=== PATIENT | male | born 1945 | race Caucasian/White ===

== ENCOUNTER 2019-03-30 15:32 | Inpatient (IN) | payer OTHER, MEDICARE ==
[2019-03-30] MEDS ORDERED: LORazepam 2 MG/ML INJ IV STA (15:38)
--- NOTE | 2019-03-30 16:04 | XR ---
EXAMINATION TYPE: XR chest 1V portable DATE OF EXAM: 03/30/2019 COMPARISON: 05/06/2015 HISTORY: Pain TECHNIQUE: Single frontal view of the chest is obtained. FINDINGS: Heart and mediastinum are within normal limits. Lungs are clear of consolidation. There is no pleural effusion. There is no heart failure. Bony thorax appears intact. IMPRESSION: No active cardiopulmonary disease. No change.
--- NOTE | 2019-03-30 16:06 | XR ---
EXAMINATION TYPE: XR pelvis AP view DATE OF EXAM: 03/30/2019 COMPARISON: 02/18/2014 HISTORY: Pain TECHNIQUE: Single view FINDINGS: Pelvic ring is intact. There are clips from prostate surgery. Proximal femurs are intact. S acroiliac joints are intact. There is right hip nailing noted. IMPRESSION: No acute abnormality of the pelvis. No fracture. No change compared to old exam.
[2019-03-30 16:10] LABS: Basophils % (A) 0 %; Creatine Kinase 76 U/L (55-170); Eosinophils # (A) 0.2 k/uL (0-0.7); Eosinophils % (A) 2 %; HCT 38.3 % (39.0-53.0); HGB 13.8 gm/dL (13.0-17.5); Lymphocytes # (A) 2.8 k/uL (1.0-4.8); Lymphocytes % (A) 21 %; MCH 30.9 pg (25.0-35.0); MCHC 35.9 g/dL (31.0-37.0); MCV 86.1 fL (80.0-100.0); Mean Platelet Volume 6.9; Monocytes # (A) 0.5 k/uL (0-1.0); Monocytes % (A) 4 %; Neutrophils # (A) 9.3 k/uL (1.3-7.7); Neutrophils % (A) 71 %; Platelet Count 232 k/uL (150-450); RBC 4.45 m/uL (4.30-5.90); RDW 13.5 % (11.5-15.5); WBC 13.1 k/uL (3.8-10.6)
[2019-03-30 16:11] LABS: ALT 51 U/L (21-72); AST 48 U/L (17-59); African American GFR (CKD) >90 (>60 ml/min/1.73 sqM); Albumin 3.8 g/dL (3.5-5.0); Alcohol <10 mg/dL; Alkaline Phosphatase 60 U/L (38-126); Amylase 51 U/L (30-110); Anion Gap 9 mmol/L; Blood Urea Nitrogen 16 mg/dL (9-20); Calcium 9.4 mg/dL (8.4-10.2); Carbon Dioxide 23 mmol/L (22-30); Chloride 104 mmol/L (98-107); Glucose 138 mg/dL (74-99); Non-African American GFR(CKD) >90 (>60 ml/min/1.73 sqM); Potassium 4.2 mmol/L (3.5-5.1); Sodium 136 mmol/L (137-145); Total Bilirubin 0.3 mg/dL (0.2-1.3)
[2019-03-30 16:19] LABS: Partial Thromboplastin Time 31.8 sec (22.0-30.0); Prothrombin Time 10.8 sec (9.0-12.0)
[2019-03-30 16:22] LABS: Creatine Kinase MB 0.9 ng/mL (0.0-2.4); Troponin I <0.012 ng/mL (0.000-0.034)
[2019-03-30 16:34] LABS: Glucose,Whole Blood 165 mg/dL (75-99)
--- NOTE | 2019-03-30 16:38 | CT ---
EXAMINATION TYPE: CT pelvis wo con DATE OF EXAM: 03/30/2019 COMPARISON: 02/01/2014 HISTORY: Right hip pain after fall. CT DLP: 566.7 mGycm Automated exposure control for dose reduction was used. FINDINGS: There is right hip nailing fixing the proximal right femur. There is facet arthropathy in the lower l umbar spine. The sacroiliac joints are intact. Pelvic ring appears intact. There is some spurring at the pubic sym physis. There is no evidence of a an acute femoral fracture. There is increased density posterior to the proximal right femur that measures 10 x 7 cm consistent w ith hematoma. This extends superiorly on the posterior aspect of the right ilium. Hematoma extends in feriorly to the lesser trochanter of the femur. IMPRESSION: NO ACUTE FRACTURE SEEN. LARGE RIGHT BUTTOCK SOFT TISSUE HEMATOMA ADJACENT TO THE POSTERIOR RIGHT FEMU R.
[2019-03-30] MEDS ORDERED: HYDROmorphone 1 MG/ML 1 ML SYRINGE IVP STA (16:44)
--- NOTE | 2019-03-30 16:45 | ED ---
Fall HPI - General Chief Complaint: Fall Stated Complaint: RT HIP PAIN FROM FALL Time Seen by Provider: 03/30/19 15:32 Source: patient, EMS, RN notes reviewed Mode of arrival: EMS - History of Present Illness Initial Comments: This is a 73-year-old male who states he was on a ladder when he has foot caught in the last step and fell. He does complain of right hip pain. He does have a prior history of right hip pain. He denies any other injury no head neck or back pain no other reported findings. No blurry vision. He was transferred from here by EMS. He was given Zofran as well as 100 g of fentanyl. The pain to get a little bit better. He has no other complaints or modifying factors at this time MD Complaint: fall - Related Data Home Medications Medication Instructions Recorded Confirmed Chlorthalidone 12.5 mg PO DAILY 02/01/14 03/30/19 Dabigatran [Pradaxa] 150 mg PO BID 02/01/14 03/30/19 Lisinopril 40 mg PO BID 02/01/14 03/30/19 Rosuvastatin [Crestor] 10 mg PO HS 02/01/14 03/30/19 glipiZIDE [Glucotrol] 10 mg PO BID 02/01/14 03/30/19 metFORMIN HCL 1,000 mg PO BID 02/01/14 03/30/19 Ascorbic Acid [Vitamin C] 1,000 mg PO DAILY 05/03/15 03/30/19 Aspirin 81 mg PO HS 05/03/15 03/30/19 Cholecalciferol [Vitamin D3] 400 unit PO DAILY 05/03/15 03/30/19 Cinnamon Bark [Cinnamon] 1,000 mg PO AC-BID 05/03/15 03/30/19 Diltiazem HCl [Cardizem LA] 420 mg PO DAILY 05/03/15 03/30/19 Docusate Sodium [Dok] 100 mg PO DAILY 05/03/15 03/30/19 Gabapentin [Neurontin] 300 mg PO TID 05/03/15 03/30/19 Multivitamin [Men's Multi-Vitamin] 1 tab PO DAILY 05/03/15 03/30/19 [place]-3 Fatty Acids/Fish Oil [Fish 1 cap PO DAILY 05/03/15 03/30/19 Oil 1,000 mg Softgel] Potassium 99 mg PO DAILY 05/03/15 03/30/19 Saxagliptin HCl [Onglyza] 5 mg PO DAILY 05/03/15 03/30/19 Cyanocobalamin (Vitamin B-12) 1,000 mcg PO DAILY 03/30/19 03/30/19 [Vitamin B-12] Insulin Glargine,Hum.rec.anlog 52 unit SQ HS 03/30/19 03/30/19 [Lantus Solostar] Magnesium Oxide [Montemayor] 500 mg PO DAILY 03/30/19 03/30/19 Propafenone HCl [Propafenone HCl 325 mg PO BID 03/30/19 03/30/19 ER] Psyllium Husk [Reguloid] 0.4 gm PO BID 03/30/19 03/30/19 Allergies Allergy/AdvReac Type Severity Reaction Status Date / Time bee venom protein (honey bee) Allergy Anaphylaxis Verified 03/30/19 16:44 Review of Systems ROS Statement: Those systems with pertinent positive or pertinent negative responses have been documented in the HPI. ROS Other: All systems not noted in ROS Statement are negative. 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 History of Any Multi-Drug Resistant Organisms: None Reported Past Surgical History: Prostate Surgery, Tonsillectomy Additional Past Surgical History / Comment(s): tumor removal right hip Past Anesthesia/Blood Transfusion Reactions: No Reported Reaction Past Psychological History: No Psychological Hx Reported Smoking Status: Former smoker Past Alcohol Use History: Occasional Past Drug Use History: None Reported - Past Family History Father Family Medical History: Coronary Artery Disease (CAD), Myocardial Infarction ([place]) Additional Family Medical History / Comment(s): in from a heart attack Mother Family Medical History: No Reported History General Exam - General Exam Comments Initial Comments: This is a well-developed well-nourished awake alert oriented 3 male Limitations: no limitations General appearance: alert, anxious, in distress Head exam: Present: atraumatic, normocephalic, normal inspection Eye exam: Present: normal appearance, PERRL, EOMI. Absent: scleral icterus, conjunctival injection, periorbital swelling ENT exam: Present: normal exam, mucous membranes moist Neck exam: Present: normal inspection, full ROM, other (No stridor JVD or bruits). Absent: tenderness, meningismus, lymphadenopathy Respiratory exam: Present: normal lung sounds bilaterally. Absent: respiratory distress, wheezes, rales, rhonchi, stridor Cardiovascular Exam: Present: regular rate, normal rhythm, normal heart sounds. Absent: systolic murmur, diastolic murmur, rubs, gallop, clicks GI/Abdominal exam: Present: soft, normal bowel sounds. Absent: distended, tenderness, guarding, rebound, rigid, bruit, pulsatile mass Rectal exam: Present: deferred Extremities exam: Present: normal inspection, tenderness, normal capillary refill, other (Tenderness over the right hip to palpation no definite shortening or rotation. No open wounds. No other injury to palpation no sensorimotor or vascular deficits). Absent: full ROM, pedal edema, joint swelling, calf tenderness Back exam: Present: normal inspection Neurological exam: Present: alert, oriented X3, CN II-XII intact Psychiatric exam: Present: normal affect, normal mood Skin exam: Present: warm, dry, intact, normal color. Absent: rash Course Vital Signs 03/30/19 15:42 Temperature 98.7 F Pulse Rate 58 L Respiratory 20 Rate Blood Pressure 181/102 O2 Sat by Pulse 98 Oximetry - Reevaluation(s) Reevaluation #1: 03/30/19 17:33 Repeat EKG sinus rhythm a 64. Interval 188 QRS duration 80 QT since QTC 422/[address]-T wave changes no change from the previous Reevaluation #2: 03/30/19 17:52 Evaluation patient multiple occasions reveals minimal improvement in the right hip pain though imaging thus far reveals no evidence of subluxation or fracture. The hardware does appear to be intact. Patient also did start complaining of some retrosternal chest discomfort that he states feels like heartburn. He does have a history of this in the past. Medical Decision Making - Medical Decision Making I did discuss findings with patient family as well as with Dr. High. Patient will be admitted for pain control also for adequate evaluation of the chest pain. I did discuss this with Dr. Newton - Lab Data Result diagrams: 03/30/19 15:40 03/30/19 15:40 Lab Results 03/30/19 03/30/19 03/30/19 Range/Units 15:40 15:40 15:40 WBC 13.1 H (3.8-10.6) k/uL RBC 4.45 (4.30-5.90) m/uL Hgb 13.8 (13.0-17.5) gm/dL Hct 38.3 L (39.0-53.0) % MCV 86.1 (80.0-100.0) fL MCH 30.9 (25.0-35.0) pg MCHC 35.9 (31.0-37.0) g/dL RDW 13.5 (11.5-15.5) % Plt Count 232 (150-450) k/uL Neutrophils % 71 % Lymphocytes % 21 % Monocytes % 4 % Eosinophils % 2 % Basophils % 0 % Neutrophils # 9.3 H (1.3-7.7) k/uL Lymphocytes # 2.8 (1.0-4.8) k/uL Monocytes # 0.5 (0-1.0) k/uL Eosinophils # 0.2 (0-0.7) k/uL Basophils # 0.0 (0-0.2) k/uL PT (9.0-12.0) sec INR (<1.2) APTT (22.0-30.0) sec Sodium 136 L (137-145) mmol/L Potassium 4.2 (3.5-5.1) mmol/L Chloride 104 (98-107) mmol/L Carbon Dioxide 23 (22-30) mmol/L Anion Gap 9 mmol/L BUN 16 (9-20) mg/dL Creatinine 0.63 L (0.66-1.25) mg/dL Est GFR (CKD-EPI)AfAm >90 (>60 ml/min/1.73 sqM) Est GFR (CKD-EPI)NonAf >90 (>60 ml/min/1.73 sqM) Glucose 138 H (74-99) mg/dL POC Glucose (mg/dL) (75-99) mg/dL POC Glu Filter Helper ID Calcium 9.4 (8.4-10.2) mg/dL Total Bilirubin 0.3 (0.2-1.3) mg/dL AST 48 (17-59) U/L ALT 51 (21-72) U/L Alkaline Phosphatase 60 (38-126) U/L Total Creatine Kinase 76 (55-170) U/L CK-MB (CK-2) 0.9 (0.0-2.4) ng/mL CK-MB (CK-2) Rel Index 1.2 Troponin I <0.012 (0.000-0.034) ng/mL Total Protein 6.0 L (6.3-8.2) g/dL Albumin 3.8 (3.5-5.0) g/dL Amylase 51 (30-110) U/L Lipase 206 (23-300) U/L Serum Alcohol <10 mg/dL Blood Type Blood Type Confirm Blood Type Recheck Bld Type Recheck Status Antibody Screen Spec Expiration Date 03/30/19 03/30/19 03/30/19 Range/Units 15:40 15:40 16:15 WBC (3.8-10.6) k/uL RBC (4.30-5.90) m/uL Hgb (13.0-17.5) gm/dL Hct (39.0-53.0) % MCV (80.0-100.0) fL MCH (25.0-35.0) pg MCHC (31.0-37.0) g/dL RDW (11.5-15.5) % Plt Count (150-450) k/uL Neutrophils % % Lymphocytes % % Monocytes % % Eosinophils % % Basophils % % Neutrophils # (1.3-7.7) k/uL Lymphocytes # (1.0-4.8) k/uL Monocytes # (0-1.0) k/uL Eosinophils # (0-0.7) k/uL Basophils # (0-0.2) k/uL PT 10.8 (9.0-12.0) sec INR 1.0 (<1.2) APTT 31.8 H (22.0-30.0) sec Sodium (137-145) mmol/L Potassium (3.5-5.1) mmol/L Chloride (98-107) mmol/L Carbon Dioxide (22-30) mmol/L Anion Gap mmol/L BUN (9-20) mg/dL Creatinine (0.66-1.25) mg/dL Est GFR (CKD-EPI)AfAm (>60 ml/min/1.73 sqM) Est GFR (CKD-EPI)NonAf (>60 ml/min/1.73 sqM) Glucose (74-99) mg/dL POC Glucose (mg/dL) (75-99) mg/dL POC Glu Filter Helper ID Calcium (8.4-10.2) mg/dL Total Bilirubin (0.2-1.3) mg/dL AST (17-59) U/L ALT (21-72) U/L Alkaline Phosphatase (38-126) U/L Total Creatine Kinase (55-170) U/L CK-MB (CK-2) (0.0-2.4) ng/mL CK-MB (CK-2) Rel Index Troponin I (0.000-0.034) ng/mL Total Protein (6.3-8.2) g/dL Albumin (3.5-5.0) g/dL Amylase (30-110) U/L Lipase (23-300) U/L Serum Alcohol mg/dL Blood Type O Negative Blood Type Confirm O Negative Blood Type Recheck No Previous Record Bld Type Recheck Status CABO Indicated Antibody Screen NEGATIVE Spec Expiration Date 04/02/2019231403/30/19 Range/Units 16:30 WBC (3.8-10.6) k/uL RBC (4.30-5.90) m/uL Hgb (13.0-17.5) gm/dL Hct (39.0-53.0) % MCV (80.0-100.0) fL MCH (25.0-35.0) pg MCHC (31.0-37.0) g/dL RDW (11.5-15.5) % Plt Count (150-450) k/uL Neutrophils % % Lymphocytes % % Monocytes % % Eosinophils % % Basophils % % Neutrophils # (1.3-7.7) k/uL Lymphocytes # (1.0-4.8) k/uL Monocytes # (0-1.0) k/uL Eosinophils # (0-0.7) k/uL Basophils # (0-0.2) k/uL PT (9.0-12.0) sec INR (<1.2) APTT (22.0-30.0) sec Sodium (137-145) mmol/L Potassium (3.5-5.1) mmol/L Chloride (98-107) mmol/L Carbon Dioxide (22-30) mmol/L Anion Gap mmol/L BUN (9-20) mg/dL Creatinine (0.66-1.25) mg/dL Est GFR (CKD-EPI)AfAm (>60 ml/min/1.73 sqM) Est GFR (CKD-EPI)NonAf (>60 ml/min/1.73 sqM) Glucose (74-99) mg/dL POC Glucose (mg/dL) 165 H (75-99) mg/dL POC Glu Filter Helper ID Etelvina Del Valle Calcium (8.4-10.2) mg/dL Total Bilirubin (0.2-1.3) mg/dL AST (17-59) U/L ALT (21-72) U/L Alkaline Phosphatase (38-126) U/L Total Creatine Kinase (55-170) U/L CK-MB (CK-2) (0.0-2.4) ng/mL CK-MB (CK-2) Rel Index Troponin I (0.000-0.034) ng/mL Total Protein (6.3-8.2) g/dL Albumin (3.5-5.0) g/dL Amylase (30-110) U/L Lipase (23-300) U/L Serum Alcohol mg/dL Blood Type Blood Type Confirm Blood Type Recheck Bld Type Recheck Status Antibody Screen Spec Expiration Date - EKG Data -: EKG Interpreted by Me EKG Comments: Sinus rhythm of 55. Interval 174. QRS 90 QT since QTC 456/436 to QA changes - Radiology Data Radiology results: report reviewed (I did review the imaging and report there is evidence of a 10 x 7 cm hematoma to the right gluteus. This is consistent for the patient's wallet was when he fell.), image reviewed Critical Care Time Critical Care Time: Yes Critical Care Time: 31 minutes of critical care time which includes initial presentation with history physical labs x-rays multiple reevaluation patient responsive therapy discussion with patient and family as well as the admitting physician and consult. Admission orders and documentation of the above. Disposition Clinical Impression: Fall, Hematoma, Hip pain, right, Chest pain Disposition: ADMITTED IP TO THIS HOSP Condition: Fair Referrals: Albert Kruger DO [Primary Care Provider] - 1-2 days
[2019-03-30] MEDS ORDERED: NITROGLYCERIN SL TABS 0.4 MG TAB SUBLINGUAL PRN (17:55)
[2019-03-30] MEDS ORDERED: HYDROcodone/APAP 5-325MG 1 EACH TAB PO PRN (19:01)
[2019-03-30] MEDS ORDERED: HYDROmorphone 1 MG/ML 1 ML SYRINGE IVP PRN (19:06)
[2019-03-30] MEDS: SODIUM CHLORIDE 0.9% 1,000 ML IV SCH (19:16)
[2019-03-30] MEDS ORDERED: metFORMIN 500 MG TAB PO SCH (21:00)
[2019-03-30] MEDS ORDERED: INSULIN DETEMIR (LEVEMIR) 100 UNIT/ML SYR SQ SCH (21:00)
[2019-03-30] MEDS: ATORVASTATIN 20 MG TAB PO SCH (21:38)
[2019-03-30] MEDS: GABAPENTIN 300 MG CAP PO SCH (21:38)
[2019-03-30] MEDS: LISINOPRIL 20 MG TAB PO SCH (21:38)
[2019-03-30 21:40] LABS: Glucose,Whole Blood 236 mg/dL (75-99)
[2019-03-30] MEDS: PSYLLIUM HUSK 100% 6 GM PACKET PO SCH (21:45)
[2019-03-30] MEDS ORDERED: PROPAFENONE 225 MG TAB PO SCH (22:00)
[2019-03-30 23:24] LABS: Amphetamine Screen,Urine Not Detected (NotDetected); Barbiturate Screen,Urine Not Detected (NotDetected); Benzodiazepines Screen,Urine Detected (NotDetected); Cocaine Screen,Urine Not Detected (NotDetected); Methadone Screen, Urine Not Detected (NotDetected); Opiate Screen,Urine Detected (NotDetected); Oxycodone Screen, Urine Not Detected (NotDetected); Phencyclidine Screen,Urine Not Detected (NotDetected); Tricyclic Antidepressant,Urine Not Detected (NotDetected); Urn Cannabinoid Scrn Not Detected (NotDetected)
--- NOTE | 2019-03-31 00:15 | P.HPIM ---
History of Present Illness H&P Date: 03/30/19 The patient is a 73 yo M with a PMH of Afib (on Pradaxa), GERD, HTN, HLD, and Type 2 DM presented to the ED after a fall at home. The patient noted that he was working on putting up Halloween decorations up on his roof when his foot got stuck on the last step of his ladder on his way down, and he fell on his buttocks. He denied any head trauma or losing consciousness. The patient subsequently was brought to the ED via EMS. As per the ED documentation, the patient had reported some chest discomfort. The patient states that he has chronic intermittent GERD, which he also had prior to coming into the ED. He notes that his chest discomfort has resolved entirely and he felt that it was very typical of his GERD in the duration, intensity, quality, and location of the pain. He further denied SOB, nausea, vomiting, diaphoresis, or dizziness. He underwent an extensive evaluation in the ED with a pelvic CT showing a large right buttock soft tissue hematoma. EKG revealed a normal sinus rhythm at 64 bpm. Chest x-ray was unremarkable with laboratory evaluation showing a WBC count of 13.1, hemoglobin of 13.8, platelets 232, sodium 136, potassium 4.2, BUN 16, and creatinine 0.63. The patient was admitted under the surgical service with medicine on consult for chest discomfort and medical management. Review of Systems Pertinent positives and negatives as discussed in HPI, a complete review of systems was performed and all other systems are negative. 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 History of Any Multi-Drug Resistant Organisms: None Reported Past Surgical History: Prostate Surgery, Tonsillectomy Additional Past Surgical History / Comment(s): tumor removal right hip Past Anesthesia/Blood Transfusion Reactions: No Reported Reaction Past Psychological History: No Psychological Hx Reported Smoking Status: Former smoker Past Alcohol Use History: Occasional Past Drug Use History: None Reported - Past Family History Father Family Medical History: Coronary Artery Disease (CAD), Myocardial Infarction ([place]) Additional Family Medical History / Comment(s): in from a heart attack Mother Family Medical History: No Reported History Medications and Allergies Home Medications Medication Instructions Recorded Confirmed Type Chlorthalidone 12.5 mg PO DAILY 02/01/14 03/30/19 History Dabigatran [Pradaxa] 150 mg PO BID 02/01/14 03/30/19 History Lisinopril 40 mg PO BID 02/01/14 03/30/19 History Rosuvastatin [Crestor] 10 mg PO HS 02/01/14 03/30/19 History glipiZIDE [Glucotrol] 10 mg PO BID 02/01/14 03/30/19 History metFORMIN HCL 1,000 mg PO BID 02/01/14 03/30/19 History Ascorbic Acid [Vitamin C] 1,000 mg PO DAILY 05/03/15 03/30/19 History Aspirin 81 mg PO HS 05/03/15 03/30/19 History Cholecalciferol [Vitamin D3] 400 unit PO DAILY 05/03/15 03/30/19 History Cinnamon Bark [Cinnamon] 1,000 mg PO AC-BID 05/03/15 03/30/19 History Diltiazem HCl [Cardizem LA] 420 mg PO DAILY 05/03/15 03/30/19 History Docusate Sodium [Dok] 100 mg PO DAILY 05/03/15 03/30/19 History Gabapentin [Neurontin] 300 mg PO TID 05/03/15 03/30/19 History Multivitamin [Men's Multi-Vitamin] 1 tab PO DAILY 05/03/15 03/30/19 History [place]-3 Fatty Acids/Fish Oil [Fish 1 cap PO DAILY 05/03/15 03/30/19 History Oil 1,000 mg Softgel] Potassium 99 mg PO DAILY 05/03/15 03/30/19 History Saxagliptin HCl [Onglyza] 5 mg PO DAILY 05/03/15 03/30/19 History Cyanocobalamin (Vitamin B-12) 1,000 mcg PO DAILY 03/30/19 03/30/19 History [Vitamin B-12] Insulin Glargine,Hum.rec.anlog 52 unit SQ HS 03/30/19 03/30/19 History [Lantus Solostar] Magnesium Oxide [Montemayor] 500 mg PO DAILY 03/30/19 03/30/19 History Psyllium Husk [Reguloid] 0.4 gm PO BID 03/30/19 03/30/19 History Sotalol [Betapace] 120 mg PO BID 03/30/19 03/30/19 History Allergies Allergy/AdvReac Type Severity Reaction Status Date / Time bee venom protein (honey bee) Allergy Anaphylaxis Verified 03/30/19 16:44 Physical Exam Vitals: Vital Signs Temp Pulse Resp BP Pulse Ox 03/30/19 20:00 98.1 F 78 14 162/92 96 03/30/19 15:42 98.7 F 58 L 20 181/102 98 Intake and Output 03/30/19 03/30/19 03/31/19 14:59 22:59 06:59 Other: Weight 81.647 kg General: non toxic, in distress due to pain, appears at stated age, normal weight Derm: no unusual rashes/lesions no unusual ecchymoses, warm, dry Head: atraumatic, normocephalic, symmetric Eyes: EOMI, no lid lag, anicteric sclera, pupils equal round reactive to light ENT: Nose and ears atraumatic, no thrush, no pharyngeal erythema Neck: No thyromegaly, no cervical lymphadenopathy, trachea midline, supple Mouth: no lip lesion, mucus membranes moist Cardiovascular: S1S2 reg, no murmur, positive posterior tibial pulse bilateral, no edema, capillary refill less than 2 seconds Lungs: CTA bilateral, no rhonchi, no rales , no accessory muscle use Abdominal: soft, nontender to palpation, no guarding, no appreciable organomegaly, normal bowel sounds Ext: R lateral lower hip and upper thigh tenderness, no gross muscle atrophy, strength 5/5 throughout except RLE due to pain Neuro: CN II-XI grossly intact, light touch intact all 4 extremities, finger to nose within normal limits, Psych: Alert, oriented, appropriate affect Results CBC & Chem 7: 03/30/19 15:40 03/30/19 15:40 Labs: Abnormal Lab Results - Last 24 Hours (Table) 03/30/19 03/30/19 03/30/19 Range/Units 15:40 15:40 15:40 WBC 13.1 H (3.8-10.6) k/uL Hct 38.3 L (39.0-53.0) % Neutrophils # 9.3 H (1.3-7.7) k/uL APTT 31.8 H (22.0-30.0) sec Sodium 136 L (137-145) mmol/L Creatinine 0.63 L (0.66-1.25) mg/dL Glucose 138 H (74-99) mg/dL POC Glucose (mg/dL) (75-99) mg/dL Total Protein 6.0 L (6.3-8.2) g/dL 03/30/19 03/30/19 Range/Units 16:30 21:39 WBC (3.8-10.6) k/uL Hct (39.0-53.0) % Neutrophils # (1.3-7.7) k/uL APTT (22.0-30.0) sec Sodium (137-145) mmol/L Creatinine (0.66-1.25) mg/dL Glucose (74-99) mg/dL POC Glucose (mg/dL) 165 H 236 H (75-99) mg/dL Total Protein (6.3-8.2) g/dL Assessment and Plan Plan: Chest discomfort, resolved, likely secondary to GERD -Troponin and EKG unremarkable -Cardiac monitoring R hip hematoma secondary to mechanical fall -As per surgery service Type 2 DM -Will c/w Lantus home dose (takes 52 U qhs) -Hold oral hypoglycemics -JIMMY with FS Afib -Hold Pradaxa in setting of acute hematoma -Hold aspirin -C/w Cardizem HTN -C/w home meds: Lisinopril HLD -C/w lipitor DVT prophylaxis -IPCDs
[2019-03-31] MEDS: KETOROLAC 30 MG/ML 1 ML VIAL IVP SCH ×6 (01:28→23:50)
[2019-03-31 04:22] LABS: Cholesterol 91 mg/dL (<200); HDL Cholesterol 36 mg/dL (40-60); LDL Cholesterol,Calculated 45 mg/dL (0-99); Triglycerides 51 mg/dL (<150)
[2019-03-31 05:16] LABS: Appearance,Urine Clear (Clear); Bilirubin,Urine Negative (Negative); Blood,Urine Negative (Negative); Color,Urine Yellow; Glucose,Urine (UA) 3+ (Negative); Leukocyte Esterase,Urine Negative (Negative); Nitrite,Urine Negative (Negative); Protein,Urine Trace (Negative); Specific Gravity,Urine 1.028 (1.001-1.035); Urobilinogen,Urine <2.0 mg/dL (<2.0)
[2019-03-31] MEDS: SODIUM CHLORIDE 0.9% 1,000 ML IV SCH ×2 (06:00→14:09)
[2019-03-31 06:26] LABS: Ketones,Urine 4+ (Negative)
[2019-03-31] MEDS ORDERED: glipiZIDE 10 MG TAB PO SCH (07:30)
[2019-03-31 07:58] VITALS: BMI 29.2
[2019-03-31 08:16] LABS: Glucose,Whole Blood 155 mg/dL (75-99)
[2019-03-31] MEDS: DILTIAZEM CD 180 MG CAP.ER.24H PO SCH (08:16)
[2019-03-31] MEDS: ASCORBIC ACID 500 MG TAB PO SCH (08:16)
[2019-03-31] MEDS: CHLORTHALIDONE 25 MG TAB PO SCH (08:17)
[2019-03-31] MEDS: CHOLECALCIFEROL 400 UNIT TAB PO SCH (08:17)
[2019-03-31] MEDS: DILTIAZEM CD 240 MG CAP.ER.24H PO SCH (08:18)
[2019-03-31] MEDS: PSYLLIUM HUSK 100% 6 GM PACKET PO SCH ×2 (08:32→19:50)
[2019-03-31] MEDS: LISINOPRIL 20 MG TAB PO SCH ×2 (08:32→19:51)
[2019-03-31] MEDS: GABAPENTIN 300 MG CAP PO SCH ×3 (08:33→19:51)
[2019-03-31] MEDS: POTASSIUM CHLORIDE ER 10 MEQ TAB.ER.PRT PO SCH (08:33)
[2019-03-31] MEDS: MULTIVITAMINS, THERA 1 EACH TAB PO SCH (08:33)
[2019-03-31] MEDS: INSULIN ASPART (NovoLOG) 100 UNIT/ML VIAL SQ SCH ×4 (08:33→19:50)
[2019-03-31] MEDS: MAGNESIUM OXIDE 400 MG TAB PO SCH (08:33)
[2019-03-31] MEDS: DOCUSATE 100 MG CAP PO SCH (08:33)
[2019-03-31] MEDS: CYANOCOBALAMIN 500 MCG TAB PO SCH (08:33)
[2019-03-31 08:45] LABS: MCH 31.7 pg (25.0-35.0); MCHC 36.1 g/dL (31.0-37.0); MCV 87.7 fL (80.0-100.0); Mean Platelet Volume 7.1; Platelet Count 185 k/uL (150-450); RDW 13.6 % (11.5-15.5); WBC 11.7 k/uL (3.8-10.6)
[2019-03-31 08:49] LABS: HGB 10.5 gm/dL (13.0-17.5)
[2019-03-31 08:50] LABS: Prothrombin Time 10.3 sec (9.0-12.0)
[2019-03-31] MEDS ORDERED: LINAGLIPTIN 5 MG TABLET PO SCH (09:00)
[2019-03-31] MEDS ORDERED: NON FORMULARY DRUG (Omega-3 Fatty Acids/Fish Oil [Fish Oil 1,000 Mg Softgel] 1 CAP) PO SCH (09:00)
[2019-03-31] MEDS ORDERED: ASPIRIN 325 MG TAB PO SCH (09:00)
--- NOTE | 2019-03-31 11:18 | P.GSHP ---
History of Present Illness H&P Date: 03/31/19 73-year-old male presents to the emergency department as a priority to trauma after a fall at home. He was brought in by EMS. The patient was climbing a ladder to retrieve Halloween decorations and slipped on the last wrong of his ladder on his way down. He states he fell on his right hip. His wallet was within his pants. He denied hitting his head. He denies any loss of consciousness. On workup, he did not appear to have any acute fractures, however did have a large hematoma of the right hip/buttock. He is noted to take anticoagulation for atrial fibrillation. The emergency doctor also was concerned of possible chest discomfort. EKG was found to be normal sinus rhythm. Currently, he is experiencing difficulty in ambulating due to the large hematoma. 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 - Review of Systems All systems: negative 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, prostate ca with surgery, cataract removed right eye slight one in left eye, arthritis, sleep apnea with cpap History of Any Multi-Drug Resistant Organisms: None Reported Past Surgical History: Prostate Surgery, Tonsillectomy Additional Past Surgical History / Comment(s): tumor removal right hip, back surgery Past Anesthesia/Blood Transfusion Reactions: No Reported Reaction Past Psychological History: No Psychological Hx Reported Smoking Status: Former smoker Past Alcohol Use History: Occasional Past Drug Use History: None Reported - Past Family History Father Family Medical History: Coronary Artery Disease (CAD), Myocardial Infarction (MD) Additional Family Medical History / Comment(s): in from a heart attack, valve replacement Mother Family Medical History: No Reported History Medications and Allergies Home Medications Medication Instructions Recorded Confirmed Type Chlorthalidone 12.5 mg PO DAILY 02/01/14 03/30/19 History Dabigatran [Pradaxa] 150 mg PO BID 02/01/14 03/30/19 History Lisinopril 40 mg PO BID 02/01/14 03/30/19 History Rosuvastatin [Crestor] 10 mg PO HS 02/01/14 03/30/19 History glipiZIDE [Glucotrol] 10 mg PO BID 02/01/14 03/30/19 History metFORMIN HCL 1,000 mg PO BID 02/01/14 03/30/19 History Ascorbic Acid [Vitamin C] 1,000 mg PO DAILY 05/03/15 03/30/19 History Aspirin 81 mg PO HS 05/03/15 03/30/19 History Cholecalciferol [Vitamin D3] 400 unit PO DAILY 05/03/15 03/30/19 History Cinnamon Bark [Cinnamon] 1,000 mg PO AC-BID 05/03/15 03/30/19 History Diltiazem HCl [Cardizem LA] 420 mg PO DAILY 05/03/15 03/30/19 History Docusate Sodium [Dok] 100 mg PO DAILY 05/03/15 03/30/19 History Gabapentin [Neurontin] 300 mg PO TID 05/03/15 03/30/19 History Multivitamin [Men's Multi-Vitamin] 1 tab PO DAILY 05/03/15 03/30/19 History [place]-3 Fatty Acids/Fish Oil [Fish 1 cap PO DAILY 05/03/15 03/30/19 History Oil 1,000 mg Softgel] Potassium 99 mg PO DAILY 05/03/15 03/30/19 History Saxagliptin HCl [Onglyza] 5 mg PO DAILY 05/03/15 03/30/19 History Cyanocobalamin (Vitamin B-12) 1,000 mcg PO DAILY 03/30/19 03/30/19 History [Vitamin B-12] Insulin Glargine,Hum.rec.anlog 52 unit SQ HS 03/30/19 03/30/19 History [Lantus Solostar] Magnesium Oxide [Montemayor] 500 mg PO DAILY 03/30/19 03/30/19 History Psyllium Husk [Reguloid] 0.4 gm PO BID 03/30/19 03/30/19 History Sotalol [Betapace] 120 mg PO BID 03/30/19 03/30/19 History Allergies Allergy/AdvReac Type Severity Reaction Status Date / Time bee venom protein (honey bee) Allergy Anaphylaxis Verified 03/30/19 16:44 Surgical - Exam Osteopathic Statement: *. No significant issues noted on an osteopathic structural exam other than those noted in the History and Physical/Consult. Vital Signs Temp Pulse Resp BP Pulse Ox 98.7 F 58 L 20 181/102 98 03/30/19 15:42 03/30/19 15:42 03/30/19 15:42 03/30/19 15:42 03/30/19 15:42 - General well nourished, no distress - Eyes PERRL - Neck trachea midline - Respiratory normal respiratory effort - Abdomen Soft, nontender, nondistended, no rebound, no guarding - Integumentary Large palpable hematoma of the right hip/buttock, a full to touch, mild ecchymosis around this area - Psychiatric oriented to time, oriented to person, oriented to place Results - Labs 03/31/19 08:15 03/30/19 15:40 Abnormal Lab Results - Last 24 Hours (Table) 03/30/19 03/30/19 03/30/19 Range/Units 15:40 15:40 15:40 WBC 13.1 H (3.8-10.6) k/uL RBC (4.30-5.90) m/uL Hgb (13.0-17.5) gm/dL Hct 38.3 L (39.0-53.0) % Neutrophils # 9.3 H (1.3-7.7) k/uL APTT 31.8 H (22.0-30.0) sec Sodium 136 L (137-145) mmol/L Creatinine 0.63 L (0.66-1.25) mg/dL Glucose 138 H (74-99) mg/dL POC Glucose (mg/dL) (75-99) mg/dL Total Protein 6.0 L (6.3-8.2) g/dL HDL Cholesterol (40-60) mg/dL Urine Protein (Negative) Urine Glucose (UA) (Negative) Urine Ketones (Negative) Urine Opiates Screen (NotDetected) U Benzodiazepines Scrn (NotDetected) 03/30/19 03/30/19 03/30/19 Range/Units 16:30 21:39 23:05 WBC (3.8-10.6) k/uL RBC (4.30-5.90) m/uL Hgb (13.0-17.5) gm/dL Hct (39.0-53.0) % Neutrophils # (1.3-7.7) k/uL APTT (22.0-30.0) sec Sodium (137-145) mmol/L Creatinine (0.66-1.25) mg/dL Glucose (74-99) mg/dL POC Glucose (mg/dL) 165 H 236 H (75-99) mg/dL Total Protein (6.3-8.2) g/dL HDL Cholesterol (40-60) mg/dL Urine Protein Trace H (Negative) Urine Glucose (UA) 3+ H (Negative) Urine Ketones 4+ H (Negative) Urine Opiates Screen (NotDetected) U Benzodiazepines Scrn (NotDetected) 03/30/19 03/31/19 03/31/19 Range/Units Unknown 03:33 08:14 WBC (3.8-10.6) k/uL RBC (4.30-5.90) m/uL Hgb (13.0-17.5) gm/dL Hct (39.0-53.0) % Neutrophils # (1.3-7.7) k/uL APTT (22.0-30.0) sec Sodium (137-145) mmol/L Creatinine (0.66-1.25) mg/dL Glucose (74-99) mg/dL POC Glucose (mg/dL) 155 H (75-99) mg/dL Total Protein (6.3-8.2) g/dL HDL Cholesterol 36 L (40-60) mg/dL Urine Protein (Negative) Urine Glucose (UA) (Negative) Urine Ketones (Negative) Urine Opiates Screen Detected H (NotDetected) U Benzodiazepines Scrn Detected H (NotDetected) 03/31/19 Range/Units 08:15 WBC 11.7 H (3.8-10.6) k/uL RBC 3.30 L (4.30-5.90) m/uL Hgb 10.5 L D (13.0-17.5) gm/dL Hct 29.0 L (39.0-53.0) % Neutrophils # (1.3-7.7) k/uL APTT (22.0-30.0) sec Sodium (137-145) mmol/L Creatinine (0.66-1.25) mg/dL Glucose (74-99) mg/dL POC Glucose (mg/dL) (75-99) mg/dL Total Protein (6.3-8.2) g/dL HDL Cholesterol (40-60) mg/dL Urine Protein (Negative) Urine Glucose (UA) (Negative) Urine Ketones (Negative) Urine Opiates Screen (NotDetected) U Benzodiazepines Scrn (NotDetected) Diabetes panel 03/30/19 03/31/19 Range/Units 15:40 03:33 Sodium 136 L (137-145) mmol/L Potassium 4.2 (3.5-5.1) mmol/L Chloride 104 (98-107) mmol/L Carbon Dioxide 23 (22-30) mmol/L BUN 16 (9-20) mg/dL Creatinine 0.63 L (0.66-1.25) mg/dL Glucose 138 H (74-99) mg/dL Calcium 9.4 (8.4-10.2) mg/dL AST 48 (17-59) U/L ALT 51 (21-72) U/L Alkaline Phosphatase 60 (38-126) U/L Total Protein 6.0 L (6.3-8.2) g/dL Albumin 3.8 (3.5-5.0) g/dL Triglycerides 51 (<150) mg/dL HDL Cholesterol 36 L (40-60) mg/dL Calcium panel 03/30/19 Range/Units 15:40 Calcium 9.4 (8.4-10.2) mg/dL Albumin 3.8 (3.5-5.0) g/dL Pituitary panel 03/30/19 Range/Units 15:40 Sodium 136 L (137-145) mmol/L Potassium 4.2 (3.5-5.1) mmol/L Chloride 104 (98-107) mmol/L Carbon Dioxide 23 (22-30) mmol/L BUN 16 (9-20) mg/dL Creatinine 0.63 L (0.66-1.25) mg/dL Glucose 138 H (74-99) mg/dL Calcium 9.4 (8.4-10.2) mg/dL Adrenal panel 03/30/19 Range/Units 15:40 Sodium 136 L (137-145) mmol/L Potassium 4.2 (3.5-5.1) mmol/L Chloride 104 (98-107) mmol/L Carbon Dioxide 23 (22-30) mmol/L BUN 16 (9-20) mg/dL Creatinine 0.63 L (0.66-1.25) mg/dL Glucose 138 H (74-99) mg/dL Calcium 9.4 (8.4-10.2) mg/dL Total Bilirubin 0.3 (0.2-1.3) mg/dL AST 48 (17-59) U/L ALT 51 (21-72) U/L Alkaline Phosphatase 60 (38-126) U/L Total Protein 6.0 L (6.3-8.2) g/dL Albumin 3.8 (3.5-5.0) g/dL Assessment and Plan (1) Hematoma Narrative/Plan: 73-year-old male status post fall - Extensive right lower extremity hematoma, hemoglobin will be followed - Due to limited ambulation, will have physical therapy evaluation along with orthopedic evaluation - Medical management appreciated - Hold anticoagulation due to hematoma Current Visit: Yes Status: Acute Code(s): T14.8XXA - OTHER INJURY OF UNSPECIFIED BODY REGION, INITIAL ENCOUNTER SNOMED Code(s): 887242046
[2019-03-31 11:29] LABS: Glucose,Whole Blood 216 mg/dL (75-99)
[2019-03-31 12:06] VITALS: RESP 18
--- NOTE | 2019-03-31 16:03 | P.PN ---
Subjective Progress Note Date: 03/31/19 Principal diagnosis: gluteal pain Patient is a 73-year-old male past medical history of atrial fibrillation on anticoagulation with prior DEXA, GERD, hypertension, dyslip idemia, and diabetes mellitus type 2 who presented to the ER via EMS after a fall at home. Patient was getting following decorations out of his attic when he missed the last brought on his ladder and fell down on his buttocks. He did not have a syncopal episode. In the emergency department he underwent an extensive evaluation. On arrival he was hypertensive with a blood pressure of 181/102. Initial laboratory analysis showed a white blood cell count of 13.1, hemoglobin 13.8, and blood sugar of 138. Chest x-ray showed no acute process. Pelvic x-ray showed no acute abnormality. CT of the pelvis demonstrated a large right buttock soft tissue hematoma adjacent to the posterior right femur that measured 10 x 7 cm. His progress was held and he was initially admitted for further monitoring. He had also complained of some chest discomfort on initial arrival which she then said was consistent with his GERD. Initial EKG was nonischemic. Troponins remained negative. The morning after admission he had a 3 g drop in hemoglobin. He was having improvement in his pain in the right lowe r extremity but was still unable to lift the leg. Patient seen and examined at bedside. 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 He has chronic venous stasis changes. He does report significant pain in his right but not and right thigh area. He reports some changes in sensation over the right hip. He does still have intact light touch. He denies any chest pain or shortness of breath. He does not remember complaining of chest pain yesterday. He also does not remember seeing my partner yesterday, who his verifies evaluated him. Discussed risks versus benefits of [place] accepted. They are aware that he is at increased risk of A. fib or further blood clot will Pernox is on hold. They're in agreement with continuing to hold this secondary to known hematoma, drop in hemoglobin, and possibility of ongoing bleeding. Objective - Vital Signs Vital signs: Vital Signs Temp 97.9 F 03/31/19 12:00 Pulse 62 03/31/19 12:00 Resp 18 03/31/19 12:00 BP 128/71 03/31/19 12:00 Pulse Ox 97 03/31/19 12:00 Intake & Output 03/30/19 03/31/19 03/31/19 18:59 06:59 18:59 Intake Total 1100 Balance 1100 Weight 81.647 kg Intake: Amount of Fluid Infused ( 1100 ml) Other: Voiding Method Urinal - Exam General: non toxic, mild distress secondary to pain, appears at stated age Derm: warm, dry Head: atraumatic, normocephalic, symmetric Eyes: EOMI, no lid lag, anicteric sclera Mouth: no lip lesion, mucus membranes moist Cardiovascular: S1S2 reg, no murmur, palpable posterior tibial pulse on the left, dopplerable posterior tibial pulse on the right, dopplerable dorsalis pedis pulse on the right, Lungs: CTA bilateral, no rhonchi, no rales , no accessory muscle use Abdominal: soft, nontender to palpation, no guarding, no appreciable organomega ly Ext: no gross muscle atrophy, area over right gluteal feels firm, light touch intact, no contractures Neuro: CN II-XI grossly intact, no focal neuro deficits Psych: Alert, oriented, appropriate affect - Labs CBC & Chem 7: 03/31/19 08:15 03/30/19 15:40 Labs: Abnormal Lab Results - Last 24 Hours (Table) 03/30/19 03/30/19 03/30/19 Range/Units 15:40 15:40 15:40 WBC 13.1 H (3.8-10.6) k/uL RBC (4.30-5.90) m/uL Hgb (13.0-17.5) gm/dL Hct 38.3 L (39.0-53.0) % Neutrophils # 9.3 H (1.3-7.7) k/uL APTT 31.8 H (22.0-30.0) sec Sodium 136 L (137-145) mmol/L Creatinine 0.63 L (0.66-1.25) mg/dL Glucose 138 H (74-99) mg/dL POC Glucose (mg/dL) (75-99) mg/dL Total Protein 6.0 L (6.3-8.2) g/dL HDL Cholesterol (40-60) mg/dL Urine Protein (Negative) Urine Glucose (UA) (Negative) Urine Ketones (Negative) Urine Opiates Screen (NotDetected) U Benzodiazepines Scrn (NotDetected) 03/30/19 03/30/19 03/30/19 Range/Units 16:30 21:39 23:05 WBC (3.8-10.6) k/uL RBC (4.30-5.90) m/uL Hgb (13.0-17.5) gm/dL Hct (39.0-53.0) % Neutrophils # (1.3-7.7) k/uL APTT (22.0-30.0) sec Sodium (137-145) mmol/L Creatinine (0.66-1.25) mg/dL Glucose (74-99) mg/dL POC Glucose (mg/dL) 165 H 236 H (75-99) mg/dL Total Protein (6.3-8.2) g/dL HDL Cholesterol (40-60) mg/dL Urine Protein Trace H (Negative) Urine Glucose (UA) 3+ H (Negative) Urine Ketones 4+ H (Negative) Urine Opiates Screen (NotDetected) U Benzodiazepines Scrn (NotDetected) 03/30/19 03/31/19 03/31/19 Range/Units Unknown 03:33 08:14 WBC (3.8-10.6) k/uL RBC (4.30-5.90) m/uL Hgb (13.0-17.5) gm/dL Hct (39.0-53.0) % Neutrophils # (1.3-7.7) k/uL APTT (22.0-30.0) sec Sodium (137-145) mmol/L Creatinine (0.66-1.25) mg/dL Glucose (74-99) mg/dL POC Glucose (mg/dL) 155 H (75-99) mg/dL Total Protein (6.3-8.2) g/dL HDL Cholesterol 36 L (40-60) mg/dL Urine Protein (Negative) Urine Glucose (UA) (Negative) Urine Ketones (Negative) Urine Opiates Screen Detected H (NotDetected) U Benzodiazepines Scrn Detected H (NotDetected) 03/31/19 03/31/19 Range/Units 08:15 11:27 WBC 11.7 H (3.8-10.6) k/uL RBC 3.30 L (4.30-5.90) m/uL Hgb 10.5 L D (13.0-17.5) gm/dL Hct 29.0 L (39.0-53.0) % Neutrophils # (1.3-7.7) k/uL APTT (22.0-30.0) sec Sodium (137-145) mmol/L Creatinine (0.66-1.25) mg/dL Glucose (74-99) mg/dL POC Glucose (mg/dL) 216 H (75-99) mg/dL Total Protein (6.3-8.2) g/dL HDL Cholesterol (40-60) mg/dL Urine Protein (Negative) Urine Glucose (UA) (Negative) Urine Ketones (Negative) Urine Opiates Screen (NotDetected) U Benzodiazepines Scrn (NotDetected) Assessment and Plan Assessment: Right gluteal hematoma secondary to fall -Continue to hold Pradaxa, ASA -Case discussed orthopedic surgery - Pain control - PT/OT evaluation - monitor pulses q4h Acute blood loss anemia - follow CBC DM2 with hyperglycemia - increase levemir - SSI to ACHS - metformin and glucotrol on hold - follow BS Gastritis - causing chest discomfort - H2 vannessa A fib - continue cardizem and sotalol - hold pradaxa HTN - controlled - continue current medications HLD - Continue tatin DVT prophylaxis: ambulation Discussed with: patient, , nursing, Dr. Zamarripa Anticipated discharge: 1-[address]: home vs SNF A total of 35 minutes was spent on the care of this complex patient more than 50% of the time was spent in counseling and care coordination.
[2019-03-31 16:32] LABS: Glucose,Whole Blood 266 mg/dL (75-99)
[2019-03-31 19:39] LABS: Glucose,Whole Blood 300 mg/dL (75-99)
[2019-03-31 19:49] LABS: HCT 27.9 % (39.0-53.0); HGB 9.5 gm/dL (13.0-17.5); MCH 30.4 pg (25.0-35.0); MCHC 34.2 g/dL (31.0-37.0); MCV 88.9 fL (80.0-100.0); Mean Platelet Volume 8.2; Platelet Count 163 k/uL (150-450); RBC 3.14 m/uL (4.30-5.90); RDW 13.9 % (11.5-15.5); WBC 10.6 k/uL (3.8-10.6)
[2019-03-31] MEDS: FAMOTIDINE 20 MG TAB PO SCH (19:51)
[2019-03-31] MEDS: ATORVASTATIN 20 MG TAB PO SCH (19:51)
[2019-03-31] MEDS: SOTALOL 120 MG TAB PO SCH (19:51)
[2019-03-31] MEDS ORDERED: INSULIN DETEMIR (LEVEMIR) 100 UNIT/ML SYR SQ SCH (21:00)
[2019-04-01] MEDS: KETOROLAC 30 MG/ML 1 ML VIAL IVP SCH ×4 (06:02→23:41)
[2019-04-01 06:33] LABS: Glucose,Whole Blood 90 mg/dL (75-99)
[2019-04-01 07:12] LABS: HCT 27.6 % (39.0-53.0); HGB 9.5 gm/dL (13.0-17.5); MCH 30.7 pg (25.0-35.0); MCHC 34.3 g/dL (31.0-37.0); MCV 89.4 fL (80.0-100.0); Mean Platelet Volume 6.8; Platelet Count 168 k/uL (150-450); RBC 3.08 m/uL (4.30-5.90); RDW 13.7 % (11.5-15.5); WBC 10.7 k/uL (3.8-10.6)
[2019-04-01] MEDS: INSULIN ASPART (NovoLOG) 100 UNIT/ML VIAL SQ SCH ×4 (07:30→21:23)
--- NOTE | 2019-04-01 07:54 | P.CNOR ---
History of Present Illness - [facility] Consult date: 04/01/19 Requesting physician: Jodi Boone Consult reason: other (Right hip pain/hematoma) History of present illness: Mr. Fay is a pleasant 73-year-old male who was admitted to the emergency department after a fall on 03/31/2019. He was coming down off a ladder putting up Halloween decorations and fell, landing on his right hip (with his billfold in his back pocket). He states he didn't go very far but came down somewhat hard. He was evaluated in the emergency department. CT scan started a large hematoma around the right hip. The patient was on Pradaxa and aspirin, both of which have been held. He states the pain is overall well controlled. He has has been having difficulty ambulating but states he's better once he gets moving. He has had some issues with balance in the past and has had previous lumbar spine surgery. He denies any present numbness, tingling or weakness. 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 The hip has not given him any issues since. 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, prostate ca with surgery, cataract removed right eye slight one in left eye, arthritis, sleep apnea with cpap History of Any Multi-Drug Resistant Organisms: None Reported Past Surgical History: Prostate Surgery, Tonsillectomy Additional Past Surgical History / Comment(s): tumor removal right hip, back surgery Past Anesthesia/Blood Transfusion Reactions: No Reported Reaction Past Psychological History: No Psychological Hx Reported Smoking Status: Former smoker Past Alcohol Use History: Occasional Past Drug Use History: None Reported - Past Family History Father Family Medical History: Coronary Artery Disease (CAD), Myocardial Infarction (PA) Additional Family Medical History / Comment(s): in from a heart attack, valve replacement Mother Family Medical History: No Reported History Medications and Allergies Home Medications Medication Instructions Recorded Confirmed Type Chlorthalidone 12.5 mg PO DAILY 02/01/14 03/30/19 History Dabigatran [Pradaxa] 150 mg PO BID 02/01/14 03/30/19 History Lisinopril 40 mg PO BID 02/01/14 03/30/19 History Rosuvastatin [Crestor] 10 mg PO HS 02/01/14 03/30/19 History glipiZIDE [Glucotrol] 10 mg PO BID 02/01/14 03/30/19 History metFORMIN HCL 1,000 mg PO BID 02/01/14 03/30/19 History Ascorbic Acid [Vitamin C] 1,000 mg PO DAILY 05/03/15 03/30/19 History Aspirin 81 mg PO HS 05/03/15 03/30/19 History Cholecalciferol [Vitamin D3] 400 unit PO DAILY 05/03/15 03/30/19 History Cinnamon Bark [Cinnamon] 1,000 mg PO AC-BID 05/03/15 03/30/19 History Diltiazem HCl [Cardizem LA] 420 mg PO DAILY 05/03/15 03/30/19 History Docusate Sodium [Dok] 100 mg PO DAILY 05/03/15 03/30/19 History Gabapentin [Neurontin] 300 mg PO TID 05/03/15 03/30/19 History Multivitamin [Men's Multi-Vitamin] 1 tab PO DAILY 05/03/15 03/30/19 History [place]-3 Fatty Acids/Fish Oil [Fish 1 cap PO DAILY 05/03/15 03/30/19 History Oil 1,000 mg Softgel] Potassium 99 mg PO DAILY 05/03/15 03/30/19 History Saxagliptin HCl [Onglyza] 5 mg PO DAILY 05/03/15 03/30/19 History Cyanocobalamin (Vitamin B-12) 1,000 mcg PO DAILY 03/30/19 03/30/19 History [Vitamin B-12] Insulin Glargine,Hum.rec.anlog 52 unit SQ HS 03/30/19 03/30/19 History [Lantus Solostar] Magnesium Oxide [Montemayor] 500 mg PO DAILY 03/30/19 03/30/19 History Psyllium Husk [Reguloid] 0.4 gm PO BID 03/30/19 03/30/19 History Sotalol [Betapace] 120 mg PO BID 03/30/19 03/30/19 History Allergies Allergy/AdvReac Type Severity Reaction Status Date / Time bee venom protein (honey bee) Allergy Anaphylaxis Verified 03/30/19 16:44 Physical Examination There is a 5 cm x 6 cm area of ecchymosis on the posterolateral aspect of the right hip, posterior and proximal to the greater trochanter. The surrounding musculature and soft tissues are enlarged and moderately firm. He does not have a lot of adipose tissue around the hips but this is asymmetric to the other side. Mild/appropriate tenderness to palpation. It is not fluctuant. No pain with logroll or heel pound. He is able to actively range the hip without difficulty. Palpable dorsalis pedis and tibialis posterior pulses are 3+ and 2 +, respectively. Symmetric strength with resisted dorsiflexion and plantarflexion. Subjectively normal sensation circumferentially around the leg and foot. Results CT scan of the pelvis was reviewed and interpreted from an orthopedic standpoint. This demonstrates a large sub-gluteal hematoma, extending from the iliac wing to the lesser trochanter measuring approximately 8 cm x 11 cm at its widest dimensions. A sliding hip screw is in place in the right hip is no ev idence of dontae-implant fracture or osseous lesions. No appreciable fractures in the hip or pelvis. - Labs Labs: Abnormal Lab Results - Last 24 Hours (Table) 03/31/19 03/31/19 03/31/19 Range/Units 08:14 08:15 11:27 WBC 11.7 H (3.8-10.6) k/uL RBC 3.30 L (4.30-5.90) m/uL Hgb 10.5 L D (13.0-17.5) gm/dL Hct 29.0 L (39.0-53.0) % POC Glucose (mg/dL) 155 H 216 H (75-99) mg/dL 03/31/19 03/31/19 03/31/19 Range/Units 16:30 19:35 19:38 WBC (3.8-10.6) k/uL RBC 3.14 L (4.30-5.90) m/uL Hgb 9.5 L (13.0-17.5) gm/dL Hct 27.9 L (39.0-53.0) % POC Glucose (mg/dL) 266 H 300 H (75-99) mg/dL 04/01/19 Range/Units 06:55 WBC 10.7 H (3.8-10.6) k/uL RBC 3.08 L (4.30-5.90) m/uL Hgb 9.5 L (13.0-17.5) gm/dL Hct 27.6 L (39.0-53.0) % POC Glucose (mg/dL) (75-99) mg/dL H & H 03/30/19 03/31/19 03/31/19 Range/Units 15:40 08:15 19:35 Hgb 13.8 10.5 L D 9.5 L (13.0-17.5) gm/dL Hct 38.3 L 29.0 L 27.9 L (39.0-53.0) % 04/01/19 Range/Units 06:55 Hgb 9.5 L (13.0-17.5) gm/dL Hct 27.6 L (39.0-53.0) % Coagulation 03/30/19 03/31/19 Range/Units 15:40 08:15 INR 1.0 1.0 (<1.2) Result Diagrams: 04/01/19 06:55 03/30/19 15:40 Assessment and Plan Assessment: This is a 73-year-old male with right hip pain status post fall from a ladder on 03/31/2019. 1. Right hip contusion with large hematoma Plan: I discussed the clinical and radiographic findings in detail with the patient. Treatment options were reviewed, including continued observation, aspiration, percutaneous drainage by interventional radiology versus surgical debridement. Based on its appearance and his clinical exam, I recommended observation and symptomatic treatment. Begin warm compresses and encourage mobilization and activity as tolerated. We will have physical therapy work with the patient on ambulation and assess any issues with gait and balance. Continue PRN pain management. Questions were invited and answered. The patient expressed understanding and agreement with the proposed plan. We will continue to follow his progress. Thank you for allowing me to participate in the care of this patient. Mckinley Zamarripa D.O. [facility]
[2019-04-01] MEDS: PSYLLIUM HUSK 100% 6 GM PACKET PO SCH ×2 (07:57→21:22)
[2019-04-01] MEDS: ASCORBIC ACID 500 MG TAB PO SCH (07:58)
[2019-04-01] MEDS: DILTIAZEM CD 180 MG CAP.ER.24H PO SCH (07:58)
[2019-04-01] MEDS: CHLORTHALIDONE 25 MG TAB PO SCH (07:58)
[2019-04-01] MEDS: DILTIAZEM CD 240 MG CAP.ER.24H PO SCH (07:58)
[2019-04-01] MEDS: GABAPENTIN 300 MG CAP PO SCH ×3 (07:59→21:23)
[2019-04-01] MEDS: CHOLECALCIFEROL 400 UNIT TAB PO SCH (07:59)
[2019-04-01] MEDS: CYANOCOBALAMIN 500 MCG TAB PO SCH (07:59)
[2019-04-01] MEDS: DOCUSATE 100 MG CAP PO SCH (07:59)
[2019-04-01] MEDS: MULTIVITAMINS, THERA 1 EACH TAB PO SCH (07:59)
[2019-04-01] MEDS: LISINOPRIL 20 MG TAB PO SCH ×2 (07:59→21:22)
[2019-04-01] MEDS: MAGNESIUM OXIDE 400 MG TAB PO SCH (07:59)
[2019-04-01] MEDS: POTASSIUM CHLORIDE ER 10 MEQ TAB.ER.PRT PO SCH (07:59)
[2019-04-01] MEDS: FAMOTIDINE 20 MG TAB PO SCH ×2 (07:59→21:22)
[2019-04-01] MEDS: SOTALOL 120 MG TAB PO SCH ×2 (07:59→21:22)
--- NOTE | 2019-04-01 10:23 | CDI ---
Documentation Clarification Form Date: 04/01/2019 10:14:38 AM From: Marie Lizarraga RN, CCDS Admit Date: 03/31/2019 2:50:00 PM Patient Name: Edin Fay Visit Number: [id number] ATTENTION: The Clinical Documentation Specialists (CDI) and [facility] Coding Staff appreciate your assistance in clarifying documentation. Please respond to the clarification below the line at the bottom and electronically sign. The CDI & [facility] Coding staff will review the response and follow-up if needed. Please note: Queries are made part of the Legal Health Record. If you have any questions, please contact the author of this message via ITS. Dr. Jodi Boone Atrial Fibrillation is documented in the H&P and progress notes and requires further specificity. History/Risk Factors: Atrial Fib, cancer, DM2, HTN, XENA Clinical Indicators: 03/31 Attending Progress Note: A-Fib, continue Cardizem and Sotalol, hold Predaxa." 03/31 EKG/telemetry: NSR Treatment: Cardizem CD 420 mg PO QD Betapace 120 mg PO BID In your professional opinion, can you please clarify the type of Atrial Fibrillation, if known? Chronic/Permanent Paroxysmal Persistent Other, please specify Unable to determine (Last Revision: September 2017) Chronic A fib MTDD
[2019-04-01 11:36] LABS: Glucose,Whole Blood 189 mg/dL (75-99)
[2019-04-01] MEDS ORDERED: traMADol 50 MG TAB PO STA (16:06)
[2019-04-01 16:36] LABS: Glucose,Whole Blood 325 mg/dL (75-99)
--- NOTE | 2019-04-01 17:40 | P.PN ---
Subjective Progress Note Date: 04/01/19 (Delayed charting seen at 0910) Principal diagnosis: gluteal pain Patient is a 73-year-old male past medical history of atrial fibrillation on anticoagulation with Pradaxa, GERD, hypertension, dyslipidemia, and diabetes mellitus type 2 who presented to the ER via EMS after a fall at home. Patient was getting following decorations out of his attic when he missed the last brought on his ladder and fell down on his buttocks. He did not have a syncopal episode. In the emergency department he underwent an extensive evaluation. On arrival he was hypertensive with a blood pressure of 181/102. Initial laboratory analysis showed a white blood cell count of 13.1, hemoglobin 13.8, and blood sugar of 138. Chest x-ray showed no acute process. Pelvic x- ray showed no acute abnormality. CT of the pelvis demonstrated a large right buttock soft tissue hematoma adjacent to the posterior right femur that measured 10 x 7 cm. His Pradaxa was held and he was admitted for further monitoring. He had also complained of some chest discomfort on initial arrival which he then said was consistent with his GERD. Initial EKG was nonischemic. Troponins remained negative. The morning after admission he had a 3 g drop in hemoglobin. He was having improvement in his pain in the right lower extremity but was still unable to lift the leg. Seen by ortho who recommended conservative care and ambulation. Patient seen and examined at bedside. He continues to have significant discomfort in his right lower extremity. Does not want to try any other medication secondary to history of constipation. Denies any chest pain or shortness of breath. Feels as though he that go home secondary to pain. We discussed possibility of going home in the morning shows hemoglobin be stable, and if he is unable to ambulate he may need to consider rehab. Will await PT evaluation. Objective - Vital Signs Vital signs: Vital Signs Temp 98.1 F 04/01/19 16:00 Pulse 62 04/01/19 16:00 Resp 18 04/01/19 16:00 BP 126/65 04/01/19 16:00 Pulse Ox 96 04/01/19 16:00 Intake & Output 03/31/19 04/01/19 04/01/19 18:59 06:59 18:59 Intake Total 1100 960 Balance 1100 960 Intake: Amount of Fluid Infused ( 1100 ml) Oral 960 Other: Voiding Method Urinal Urinal Urinal # Voids 1 2 - Exam General: non toxic, mild distress secondary to pain, appears at stated age Derm: warm, dry Head: atraumatic, normocephalic, symmetric Eyes: EOMI, no lid lag, anicteric sclera Mouth: no lip lesion, mucus membranes moist Cardiovascular: S1S2 reg, no murmur,+ PT pulse bilateral Lungs: CTA bilateral, no rhonchi, no rales , no accessory muscle use Abdominal: soft, nontender to palpation, no guarding, no appreciable organomegaly Ext: no gross muscle atrophy, area over right gluteal feels firm, light touch intact, no contractures Neuro: CN II-XI grossly intact, no focal neuro deficits Psych: Alert, oriented, appropriate affect - Labs CBC & Chem 7: 04/01/19 06:55 03/30/19 15:40 Labs: Abnormal Lab Results - Last 24 Hours (Table) 03/31/19 03/31/19 04/01/19 Range/Units 19:35 19:38 06:55 WBC 10.7 H (3.8-10.6) k/uL RBC 3.14 L 3.08 L (4.30-5.90) m/uL Hgb 9.5 L 9.5 L (13.0-17.5) gm/dL Hct 27.9 L 27.6 L (39.0-53.0) % POC Glucose (mg/dL) 300 H (75-99) mg/dL 04/01/19 04/01/19 Range/Units 11:34 16:34 WBC (3.8-10.6) k/uL RBC (4.30-5.90) m/uL Hgb (13.0-17.5) gm/dL Hct (39.0-53.0) % POC Glucose (mg/dL) 189 H 325 H (75-99) mg/dL Assessment and Plan Assessment: Right gluteal hematoma secondary to fall -Continue to hold Pradaxa, ASA -Ortho recs appreciated - Pain control - PT/OT evaluation Acute blood loss anemia - follow CBC DM2 with hyperglycemia - increase levemir - SSI to ACHS - metformin and glucotrol on hold - follow BS Gastritis - causing chest discomfort - H2 vannessa Chroinc A fib - continue cardizem and sotalol - hold pradaxa HTN - controlled - continue current medications HLD - Continue tatin DVT prophylaxis: ambulation Discussed with: patient, nursing Anticipated discharge: in AM if HgB stable Anticipated discharge place: home vs SNF A total of 35 minutes was spent on the care of this complex patient more than 50% of the time was spent in counseling and care coordination.
[2019-04-01 20:07] LABS: Glucose,Whole Blood 319 mg/dL (75-99)
[2019-04-01] MEDS ORDERED: INSULIN DETEMIR (LEVEMIR) 100 UNIT/ML SYR SQ SCH ×2 (21:00)
[2019-04-01] MEDS: ATORVASTATIN 20 MG TAB PO SCH (21:22)
[2019-04-02] MEDS: KETOROLAC 30 MG/ML 1 ML VIAL IVP SCH (05:39)
[2019-04-02 06:39] LABS: Glucose,Whole Blood 174 mg/dL (75-99)
[2019-04-02 08:10] VITALS: BP 130/70; PULSE 56; TEMP 98
[2019-04-02] MEDS: CHLORTHALIDONE 25 MG TAB PO SCH (08:14)
[2019-04-02] MEDS: LISINOPRIL 20 MG TAB PO SCH (08:14)
[2019-04-02] MEDS: POTASSIUM CHLORIDE ER 10 MEQ TAB.ER.PRT PO SCH (08:14)
[2019-04-02] MEDS: GABAPENTIN 300 MG CAP PO SCH (08:15)
[2019-04-02] MEDS: INSULIN ASPART (NovoLOG) 100 UNIT/ML VIAL SQ SCH (08:15)
[2019-04-02] MEDS: DILTIAZEM CD 180 MG CAP.ER.24H PO SCH (08:15)
[2019-04-02] MEDS: CYANOCOBALAMIN 500 MCG TAB PO SCH (08:15)
[2019-04-02] MEDS: MULTIVITAMINS, THERA 1 EACH TAB PO SCH (08:15)
[2019-04-02] MEDS: DOCUSATE 100 MG CAP PO SCH (08:15)
[2019-04-02] MEDS: MAGNESIUM OXIDE 400 MG TAB PO SCH (08:15)
[2019-04-02] MEDS: PSYLLIUM HUSK 100% 6 GM PACKET PO SCH (08:15)
[2019-04-02] MEDS: FAMOTIDINE 20 MG TAB PO SCH (08:15)
[2019-04-02] MEDS: DILTIAZEM CD 240 MG CAP.ER.24H PO SCH (08:16)
[2019-04-02] MEDS: ASCORBIC ACID 500 MG TAB PO SCH (08:16)
[2019-04-02] MEDS: CHOLECALCIFEROL 400 UNIT TAB PO SCH (08:16)
[2019-04-02] MEDS: SOTALOL 120 MG TAB PO SCH (08:17)
[2019-04-02 08:57] LABS: HCT 26.9 % (39.0-53.0); HGB 9.4 gm/dL (13.0-17.5); MCH 30.9 pg (25.0-35.0); MCHC 34.8 g/dL (31.0-37.0); MCV 88.8 fL (80.0-100.0); Mean Platelet Volume 7.2; Platelet Count 188 k/uL (150-450); RBC 3.03 m/uL (4.30-5.90); RDW 13.9 % (11.5-15.5); WBC 9.3 k/uL (3.8-10.6)
--- NOTE | 2019-04-02 09:07 | P.PN ---
Subjective Progress Note Date: 04/02/19 Principal diagnosis: Right hip contusion with large hematoma The patient is a pleasant 73-year-old male who we've been following for a right gluteal hematoma. The patient was evaluated at the bedside today. He states that his pain is controlled at this time and feels that he is slowly improving. He has been ambulating to the bathroom with a walker and in the hallway with his . He states the hardest part is sitting on the toilet but says that his toilet at home taller than the one here. Hemoglobin is stable at 9.4 this morning. Nursing staff states that he may be discharged home today. Objective - Vital Signs Vital signs: Vital Signs Temp 98.0 F 04/02/19 07:35 Pulse 56 L 04/02/19 08:00 Resp 18 04/02/19 08:00 BP 130/70 04/02/19 07:35 Pulse Ox 97 04/02/19 07:35 Intake & Output 04/01/19 04/02/19 04/02/19 18:59 06:59 18:59 Intake Total 960 240 Balance 960 240 Intake: Oral 960 240 Other: Voiding Method Urinal Urinal Toilet Urinal # Voids 2 1 - Exam The patient is a pleasant 73-year-old male who is in no acute distress. He is alert and oriented 3. Exam of the right hip reveals a large area of ecchymosis to the posterior lateral aspect of the hip. Areas moderately firm and swollen. Mild tenderness to palpation. There is no fluctuance noted or fluid collection. No pain upon range of motion of the right hip. Calf is soft and nontender. Good foot and ankle motion is present. Neurological and circulatory status is intact. - Labs CBC & Chem 7: 04/02/19 08:30 03/30/19 15:40 Labs: Abnormal Lab Results - Last 24 Hours (Table) 04/01/19 04/01/19 04/01/19 Range/Units 11:34 16:34 20:05 RBC (4.30-5.90) m/uL Hgb (13.0-17.5) gm/dL Hct (39.0-53.0) % POC Glucose (mg/dL) 189 H 325 H 319 H (75-99) mg/dL 04/02/19 04/02/19 Range/Units 06:35 08:30 RBC 3.03 L (4.30-5.90) m/uL Hgb 9.4 L (13.0-17.5) gm/dL Hct 26.9 L (39.0-53.0) % POC Glucose (mg/dL) 174 H (75-99) mg/dL Assessment and Plan (1) Fall Current Visit: Yes Status: Acute Code(s): W19.XXXA - UNSPECIFIED FALL, INITIAL ENCOUNTER SNOMED Code(s): 5067291 (2) Hematoma Current Visit: Yes Status: Acute Code(s): T14.8XXA - OTHER INJURY OF UNSPECIFIED BODY REGION, INITIAL ENCOUNTER SNOMED Code(s): 728393609 (3) Hip pain, right Current Visit: Yes Status: Acute Code(s): M25.551 - PAIN IN RIGHT HIP SNOMED Code(s): 02134616 Plan: The clinical findings were discussed with the patient. The case was also discussed with Dr. Zamarripa. The patient appears to be progressing with ambu lation. A walker prescription was placed on the chart. Continue symptomatic treatment with warm compresses and activity as tolerated. Continue pain control as needed, last [place] was taken 2 day ago and Ultram x1 was given yesterday. The patient may be discharged home from an orthopedic standpoint. If the patient remains in the hospital, we will continue to follow his progress and make further recommendations as needed.
--- NOTE | 2019-04-02 10:31 | P.DS ---
Providers Date of admission: 03/31/19 14:50 Expected date of discharge: 04/02/19 Attending physician: Jodi Boone DO Consults: 03/30/19 17:55 Consult Physician Urgent Consulting Provider: Yousif Newton Consult Reason/Comments: Chest pain Do you want consulting provider notified?: Already Contacted 03/31/19 11:19 Consult Physician Routine Consulting Provider: Checo Rivero Consult Reason/Comments: right hip hematoma/difficulty ambulating Do you want consulting provider notified?: Yes Primary care physician: Albert [facility] Hospital Course: Discharge Diagnosis: Right Gluteal hematoma Fall Acute blood loss anemia Right hip pain Non valvular Chronic a. fib DM 2 insulin requiring Gastritis HTN HLD Hospital Course: Patient is a 73-year-old male past medical history of atrial fibrillation on anticoagulation with Pradaxa, GERD, hypertension, dyslipidemia, and diabetes mellitus type 2 who presented to the ER via EMS after a fall at home. Patient was getting Halloween decorations out of his attic when he missed the last brought on his ladder and fell down on his buttocks. He did not have a syncopal episode. In the emergency department he underwent an extensive evaluation. On arrival he was hypertensive with a blood pressure of 181/102. Initial laboratory analysis showed a white blood cell count of 13.1, hemoglobin 13.8, and blood sugar of 138. Chest x-ray showed no acute process. Pelvic x- ray showed no acute abnormality. CT of the pelvis demonstrated a large right buttock soft tissue hematoma adjacent to the posterior right femur that measured 10 x 7 cm. His Pradaxa was held and he was admitted for further monitoring. He had also complained of some chest discomfort on initial arrival which he then said was consistent with his GERD. Initial EKG was nonischemic. Troponins remained negative. The morning after admission he had a 3 g drop in hemoglobin. He was having improvement in his pain in the right lower extremity but was still unable to lift the leg. Seen by ortho who recommended conservative care and ambulation. He was provided with a walker and met with physical therapy. His hemoglobin stabalized. He was determined stable for discharge. He will take ultram for pain, he can use motrin for pain while off Pradaxa. He will follow-up with Dr. Zamarripa in 7-10 days, and Dr. Kruger in 1-2 days. He can resume Pradaxa on 04/07. Patient seen and examined at bedside. Vital signs reviewed and stable. General: non toxic, no distress, appears at stated age Derm: warm, dry Head: atraumatic, normocephalic, symmetric Eyes: EOMI, no lid lag, anicteric sclera Mouth: no lip lesion, mucus membranes moist Cardiovascular: S1S2 reg, no murmur, positive posterior tibial pulse bilateral, Lungs: CTA bilateral, no rhonchi, no rales , no accessory muscle use Abdominal: soft, nontender to palpation, no guarding, no appreciable organomegaly Ext: no gross muscle atrophy, no edema, no contractures Neuro: CN II-XI grossly intact, no focal neuro deficits Psych: Alert, oriented, appropriate affect A total of 35 minutes of time were spent preparing this complex discharge summary . Patient Condition at Discharge: Stable Plan - Discharge Summary Discharge Rx Participant: Yes New Discharge Prescriptions: New Ibuprofen [Motrin] 600 mg PO Q8HR PRN #30 tab PRN Reason: Pain Scale 1 To 5 Famotidine [Pepcid] 20 mg PO BID #60 tab traMADol HCl [Ultram] 50 mg PO Q6HR PRN 3 Days #12 tab PRN Reason: Pain Scale 6 To 10 Continue Chlorthalidone 12.5 mg PO DAILY Rosuvastatin [Crestor] 10 mg PO HS metFORMIN HCL 1,000 mg PO BID glipiZIDE [Glucotrol] 10 mg PO BID Lisinopril 40 mg PO BID Dabigatran [Pradaxa] 150 mg PO BID Ascorbic Acid [Vitamin C] 1,000 mg PO DAILY Cinnamon Bark [Cinnamon] 1,000 mg PO AC-BID Potassium 99 mg PO DAILY Gabapentin [Neurontin] 300 mg PO TID Saxagliptin HCl [Onglyza] 5 mg PO DAILY [place]-3 Fatty Acids/Fish Oil [Fish Oil 1,000 mg Softgel] 1 cap PO DAILY Multivitamin [Men's Multi-Vitamin] 1 tab PO DAILY Docusate Sodium [Dok] 100 mg PO DAILY Aspirin 81 mg PO HS Cholecalciferol [Vitamin D3] 400 unit PO DAILY Diltiazem HCl [Cardizem LA] 420 mg PO DAILY Cyanocobalamin (Vitamin B-12) [Vitamin B-12] 1,000 mcg PO DAILY Insulin Glargine,Hum.rec.anlog [Lantus Solostar] 52 unit SQ HS Magnesium Oxide [[place]] 500 mg PO DAILY Psyllium Husk [Reguloid] 0.4 gm PO BID Sotalol [Betapace] 120 mg PO BID Discharge Medication List Chlorthalidone 12.5 mg PO DAILY 02/01/14 [History] Dabigatran [Pradaxa] 150 mg PO BID 02/01/14 [History] Lisinopril 40 mg PO BID 02/01/14 [History] Rosuvastatin [Crestor] 10 mg PO HS 02/01/14 [History] glipiZIDE [Glucotrol] 10 mg PO BID 02/01/14 [History] metFORMIN HCL 1,000 mg PO BID 02/01/14 [History] Ascorbic Acid [Vitamin C] 1,000 mg PO DAILY 05/03/15 [History] Aspirin 81 mg PO HS 05/03/15 [History] Cholecalciferol [Vitamin D3] 400 unit PO DAILY 05/03/15 [History] Cinnamon Bark [Cinnamon] 1,000 mg PO AC-BID 05/03/15 [History] Diltiazem HCl [Cardizem LA] 420 mg PO DAILY 05/03/15 [History] Docusate Sodium [Dok] 100 mg PO DAILY 05/03/15 [History] Gabapentin [Neurontin] 300 mg PO TID 05/03/15 [History] Multivitamin [Men's Multi-Vitamin] 1 tab PO DAILY 05/03/15 [History] [place]-3 Fatty Acids/Fish Oil [Fish Oil 1,000 mg Softgel] 1 cap PO DAILY 05/03/15 [History] Potassium 99 mg PO DAILY 05/03/15 [History] Saxagliptin HCl [Onglyza] 5 mg PO DAILY 05/03/15 [History] Cyanocobalamin (Vitamin B-12) [Vitamin B-12] 1,000 mcg PO DAILY 03/30/19 [History] Insulin Glargine,Hum.rec.anlog [Lantus Solostar] 52 unit SQ HS 03/30/19 [History] Magnesium Oxide [[place]] 500 mg PO DAILY 03/30/19 [History] Psyllium Husk [Reguloid] 0.4 gm PO BID 03/30/19 [History] Sotalol [Betapace] 120 mg PO BID 03/30/19 [History] Famotidine [Pepcid] 20 mg PO BID #60 tab 04/02/19 [Rx] Ibuprofen [Motrin] 600 mg PO Q8HR PRN #30 tab 04/02/19 [Rx] traMADol HCl [Ultram] 50 mg PO Q6HR PRN 3 Days #12 tab 04/02/19 [Rx] Follow up Appointment(s)/Referral(s): [facility], [NON-STAFF] - 1-2 Days Albert Kruger DO [Primary Care Provider] - 1-2 days Mckinley Zamarripa DO [Medical Doctor] - 1 Week Activity/Diet/Wound Care/Special Instructions: Activity: As tolerated Diet: Heart healthy carb consistent Special Instructions: Warm compresses for comfort Elevate leg when able to help with swelling
== END 2019-04-02 11:52 | disposition home health service (06) | DRG 812 ==
LOC: EC 15:32 → 1SOBS 17:55 → OBSVTOIN 03-31 14:50
PROVIDERS: ADMIT Internal Medicine; ATTEND Internal Medicine
DX: D62 Acute posthemorrhagic anemia (principal); I48.20 Chronic atrial fibrillation, unspecified; S30.0XXA Contusion of lower back and pelvis, initial encounter; Z79.01 Long term (current) use of anticoagulants; R26.2 Difficulty in walking, not elsewhere classified; E11.65 Type 2 diabetes mellitus with hyperglycemia; E11.42 Type 2 diabetes mellitus with diabetic polyneuropathy; E78.5 Hyperlipidemia, unspecified; G47.30 Sleep apnea, unspecified; I10 Essential (primary) hypertension; I87.8 Other specified disorders of veins; K21.9 Gastro-esophageal reflux disease without esophagitis; K29.70 Gastritis, unspecified, without bleeding; H26.9 Unspecified cataract; N42.9 Disorder of prostate, unspecified; M19.90 Unspecified osteoarthritis, unspecified site; Z79.4 Long term (current) use of insulin; Z79.82 Long term (current) use of aspirin; Z79.899 Other long term (current) drug therapy; Z87.891 Personal history of nicotine dependence; Z85.46 Personal history of malignant neoplasm of prostate; Z82.49 Family history of ischemic heart disease and other diseases of the circulatory system; W11.XXXA Fall on and from ladder, initial encounter; Y92.009 Unspecified place in unspecified non-institutional (private) residence as the place of occurrence of the external cause
CPT/HCPCS: 36415; 71045; 72170; 72192; 80053; 80061; 80306; 80320; 81003; 82150; 82550; 82553; 83690; 84484; 85025; 85027; 85610; 85730; 86850; 86900; 86901; 93005; 96374; 96375; 96376; 99291

== ENCOUNTER → 2020-01-09 | Outpatient (CLI) | payer MEDICARE ==
--- NOTE | 2020-01-09 13:20 | XR ---
Right foot HISTORY: Osteomyelitis attention second digit 3 views the right foot Soft tissue swelling is noted at the second digit right foot. There is no fracture or dislocation. No periostitis to suggest osteomyelitis. There is no evident bone erosion. Second digit is flexed. IMPRESSION: Soft tissue swelling.
== END | disposition home or self-care (01) ==
LOC: LABWHC1 11:47
PROVIDERS: ATTEND Family Medicine
DX: M79.89 Other specified soft tissue disorders (principal)
CPT/HCPCS: 36415; 85652; 86140

== ENCOUNTER → 2020-01-16 | Outpatient (CLI) | payer MEDICARE ==
--- NOTE | 2020-01-16 14:52 | US ---
EXAMINATION TYPE: US venous doppler duplex LE DATE OF EXAM: 01/16/2020 2:05 PM COMPARISON: NONE CLINICAL HISTORY: E11.621 type 2 diabetes with foot ulcer. patient fell 03/31/19, pain and edema righ t hip. Wound 2nd toe right foot. patient currently on blood thinner - A FIB SIDE PERFORMED: bilateral TECHNIQUE: The lower extremity deep venous system is examined utilizing real time linear array sonog sammie with graded compression, doppler sonography and color-flow sonography. VESSELS IMAGED: External Iliac Vein (EIV) Common Femoral Vein Deep Femoral Vein Greater Saphenous Vein * Femoral Vein Popliteal Vein Small Saphenous Vein * Proximal Calf Veins (* superficial vessels) Right Leg: no evidence of DVT Left Leg: no evidence of DVT Grayscale, color doppler, spectral doppler imaging performed of the deep veins of the bilateral lower extremities. There is normal flow, compressibility, vascular waveforms. IMPRESSION: No ultrasound evidence for acute DVT in either lower extremity.
== END | disposition home or self-care (01) ==
LOC: RADUSWWP 13:08
PROVIDERS: ATTEND Family Medicine
DX: E11.621 Type 2 diabetes mellitus with foot ulcer (principal)
CPT/HCPCS: 93922; 93970

== ENCOUNTER 2020-05-19 13:29 | Inpatient (IN) | payer MEDICARE ==
--- NOTE | 2020-05-19 14:03 | ED ---
General Adult HPI - General Chief complaint: Shortness of Breath Stated complaint: SOB,COVID Exposure Time Seen by Provider: 05/19/20 13:45 Source: patient, EMS, RN notes reviewed, old records reviewed Mode of arrival: EMS Limitations: no limitations - History of Present Illness Initial comments: This is a 74-year-old male who presents emergency Department stating he was exposed to COVID by his which was diagnosed on Monday. Patient states on Monday he started having symptoms. Patient states his symptoms consisted of some minimal shortness of breath of cough and significant fatigue. Patient denies any chest pain or palpitations. Patient denies any diarrhea. Patient denies any loss of taste or smell. Patient states the shortness of breath only seemed to occur when he was exerting himself trying to help his off the floor. Patient states he has had a low-grade fever on and off. Patient denies any abdominal pain. - Related Data Home Medications Medication Instructions Recorded Confirmed Chlorthalidone 12.5 mg PO DAILY 02/01/14 05/19/20 Dabigatran [Pradaxa] 150 mg PO BID 02/01/14 05/19/20 glipiZIDE [Glucotrol] 20 mg PO BID 02/01/14 05/19/20 lisinopriL 40 mg PO BID 02/01/14 05/19/20 metFORMIN HCL 1,000 mg PO BID 02/01/14 05/19/20 Ascorbic Acid [Vitamin C] 1,000 mg PO DAILY 05/03/15 05/19/20 Aspirin 81 mg PO HS 05/03/15 05/19/20 Cholecalciferol [Vitamin D3] 400 unit PO DAILY 05/03/15 05/19/20 Cinnamon Bark [Cinnamon] 1,000 mg PO AC-BID 05/03/15 05/19/20 Docusate Sodium [Dok] 100 mg PO DAILY 05/03/15 05/19/20 Multivitamin [Men's Multi-Vitamin] 1 tab PO DAILY 05/03/15 05/19/20 [place]-3 Fatty Acids/Fish Oil [Fish 1 cap PO DAILY 05/03/15 05/19/20 Oil 1,000 mg Softgel] Potassium 99 mg PO DAILY 05/03/15 05/19/20 Cyanocobalamin (Vitamin B-12) 1,000 mcg PO DAILY 03/30/19 05/19/20 [Vitamin B-12] Insulin Glargine,Hum.rec.anlog 70 unit SQ HS 03/30/19 05/19/20 [Lantus Solostar] Magnesium Oxide [Montemayor] 500 mg PO DAILY 03/30/19 05/19/20 Psyllium Husk [Reguloid] 0.8 gm PO BID 03/30/19 05/19/20 Sotalol [Betapace] 120 mg PO BID 03/30/19 05/19/20 Alogliptin Benzoate [Alogliptin] 25 mg PO DAILY 05/19/20 05/19/20 Gabapentin [Neurontin] 600 mg PO TID PRN 05/19/20 05/19/20 Rosuvastatin Calcium [Crestor] 20 mg PO HS 05/19/20 05/19/20 dilTIAZem HCL [dilTIAZem HCL 24Hr 120 mg PO DAILY 05/19/20 05/19/20 ER (Xr)] hydrALAZINE HCL [Apresoline] 10 mg PO TID 05/19/20 05/19/20 Allergies Allergy/AdvReac Type Severity Reaction Status Date / Time bee venom protein (honey bee) Allergy Anaphylaxis Verified 05/19/20 14:42 Review of Systems ROS Statement: Those systems with pertinent positive or pertinent negative responses have been documented in the HPI. ROS Other: All systems not noted in ROS Statement are negative. Past Medical History Past Medical History: Atrial Fibrillation, Cancer, Diabetes Mellitus, Eye Disorder, Hyperlipidemia, Hypertension, Prostate Disorder, Sleep Apnea/CPA P/BIPAP Additional Past Medical History / Comment(s): History of open reduction internal fixation of the right hip with excision of bony tumor, prostate ca with surgery, cataract removed right eye slight one in left eye, arthritis, sleep apnea with cpap History of Any Multi-Drug Resistant Organisms: None Reported Past Surgical History: Prostate Surgery, Tonsillectomy Additional Past Surgical History / Comment(s): tumor removal right hip, back surgery Past Anesthesia/Blood Transfusion Reactions: No Reported Reaction Past Psychological History: No Psychological Hx Reported Smoking Status: Never smoker Past Alcohol Use History: Occasional Past Drug Use History: None Reported - Past Family History Father Family Medical History: Coronary Artery Disease (CAD), Myocardial Infarction ([place]) Additional Family Medical History / Comment(s): in from a heart attack, valve replacement Mother Family Medical History: No Reported History General Exam - General Exam Comments Initial Comments: GENERAL: Patient is well-developed and well-nourished. Patient is nontoxic and well- hydrated and is in mild distress. ENT: Neck is soft and supple. No significant lymphadenopathy is noted. Oropharynx is clear. Moist mucous membranes. Neck has full range of motion without eliciting any pain. EYES: The sclera were anicteric and conjunctiva were pink and moist. Extraocular movements were intact and pupils were equal round and reactive to light. Eyelids were unremarkable. PULMONARY: Unlabored respirations. Good breath sounds bilaterally. No audible rales rhonchi or wheezing was noted. CARDIOVASCULAR There is a regular rate and rhythm without any murmurs gallops or rubs. ABDOMEN: Soft and nontender with normal bowel sounds. SKIN: Skin is clear with no lesions or rashes and otherwise unremarkable. NEUROLOGIC: Patient is alert and oriented x3. Cranial nerves II through XII are grossly intact. Motor and sensory are also intact. Normal speech, volume and content. Symmetrical smile. MUSCULOSKELETAL: Normal extremities with adequate strength and full range of motion. No lower extremity swelling or edema. No calf tenderness. LYMPHATICS: No significant lymphadenopathy is noted PSYCHIATRIC: Normal psychiatric evaluation. Limitations: no limitations Course Vital Signs 05/19/20 05/19/20 05/19/20 13:46 15:32 16:47 Temperature 98.8 F Pulse Rate 88 78 75 Respiratory 18 18 16 Rate Blood Pressure 129/66 100/73 104/68 O2 Sat by Pulse 98 98 98 Oximetry Medical Decision Making - Medical Decision Making EKG shows sinus rhythm with occasional PAC at 96 bpm NE interval is 154 QRS is 92 QT interval 354 QTC is 447. Patient's EKG shows slight ST segment depression in leads V2 V3 V4 and V5 and V6 Chest x-ray shows no acute abnormality. Patient's troponin is mildly elevated. I spoke with Dr. Babb he agreed with the patient admitted the patient I consulted cardiology. - Lab Data Result diagrams: 05/19/20 14:10 05/19/20 14:10 Lab Results 05/19/20 05/19/20 05/19/20 Range/Units 14:05 14:10 14:10 WBC 6.5 (3.8-10.6) k/uL RBC 5.20 (4.30-5.90) m/uL Hgb 15.5 (13.0-17.5) gm/dL Hct 44.5 (39.0-53.0) % MCV 85.5 (80.0-100.0) fL MCH 29.8 (25.0-35.0) pg MCHC 34.9 (31.0-37.0) g/dL RDW 13.2 (11.5-15.5) % Plt Count 146 L (150-450) k/uL MPV 9.0 Neutrophils % 81 % Lymphocytes % 12 % Monocytes % 4 % Eosinophils % 0 % Basophils % 1 % Neutrophils # 5.2 (1.3-7.7) k/uL Lymphocytes # 0.8 L (1.0-4.8) k/uL Monocytes # 0.3 (0-1.0) k/uL Eosinophils # 0.0 (0-0.7) k/uL Basophils # 0.1 (0-0.2) k/uL PT 9.8 (9.0-12.0) sec INR 0.9 (<1.2) APTT 25.8 (22.0-30.0) sec D-Dimer 0.57 (<0.60) mg/L FEU Sodium (137-145) mmol/L Potassium (3.5-5.1) mmol/L Chloride (98-107) mmol/L Carbon Dioxide (22-30) mmol/L Anion Gap mmol/L BUN (9-20) mg/dL Creatinine (0.66-1.25) mg/dL Est GFR (CKD-EPI)AfAm (>60 ml/min/1.73 sqM) Est GFR (CKD-EPI)NonAf (>60 ml/min/1.73 sqM) Glucose (74-99) mg/dL Lactic Ac Sepsis Rflx Plasma Lactic Acid Jorge (0.7-2.0) mmol/L Calcium (8.4-10.2) mg/dL Magnesium (1.6-2.3) mg/dL Total Bilirubin (0.2-1.3) mg/dL AST (17-59) U/L ALT (4-49) U/L Alkaline Phosphatase (38-126) U/L Lactate Dehydrogenase (313-618) U/L Troponin I 0.062 H* (0.000-0.034) ng/mL C-Reactive Protein (<10.0) mg/L Total Protein (6.3-8.2) g/dL Albumin (3.5-5.0) g/dL Coronavirus (PCR) (Not Detectd) 05/19/20 05/19/20 05/19/20 Range/Units 14:10 14:10 14:21 WBC (3.8-10.6) k/uL RBC (4.30-5.90) m/uL Hgb (13.0-17.5) gm/dL Hct (39.0-53.0) % MCV (80.0-100.0) fL MCH (25.0-35.0) pg MCHC (31.0-37.0) g/dL RDW (11.5-15.5) % Plt Count (150-450) k/uL MPV Neutrophils % % Lymphocytes % % Monocytes % % Eosinophils % % Basophils % % Neutrophils # (1.3-7.7) k/uL Lymphocytes # (1.0-4.8) k/uL Monocytes # (0-1.0) k/uL Eosinophils # (0-0.7) k/uL Basophils # (0-0.2) k/uL PT (9.0-12.0) sec INR (<1.2) APTT (22.0-30.0) sec D-Dimer (<0.60) mg/L FEU Sodium 127 L (137-145) mmol/L Potassium 4.0 (3.5-5.1) mmol/L Chloride 97 L (98-107) mmol/L Carbon Dioxide 20 L (22-30) mmol/L Anion Gap 10 mmol/L BUN 16 (9-20) mg/dL Creatinine 0.62 L (0.66-1.25) mg/dL Est GFR (CKD-EPI)AfAm >90 (>60 ml/min/1.73 sqM) Est GFR (CKD-EPI)NonAf >90 (>60 ml/min/1.73 sqM) Glucose 427 H (74-99) mg/dL Lactic Ac Sepsis Rflx Plasma Lactic Acid Jorge 2.3 H* (0.7-2.0) mmol/L Calcium 9.4 (8.4-10.2) mg/dL Magnesium 1.6 (1.6-2.3) mg/dL Total Bilirubin 0.7 (0.2-1.3) mg/dL AST 50 (17-59) U/L ALT 37 (4-49) U/L Alkaline Phosphatase 57 (38-126) U/L Lactate Dehydrogenase 863 H (313-618) U/L Troponin I (0.000-0.034) ng/mL C-Reactive Protein 42.7 H (<10.0) mg/L Total Protein 6.3 (6.3-8.2) g/dL Albumin 3.7 (3.5-5.0) g/dL Coronavirus (PCR) Detected A (Not Detectd) 05/19/20 Range/Units 14:34 WBC (3.8-10.6) k/uL RBC (4.30-5.90) m/uL Hgb (13.0-17.5) gm/dL Hct (39.0-53.0) % MCV (80.0-100.0) fL MCH (25.0-35.0) pg MCHC (31.0-37.0) g/dL RDW (11.5-15.5) % Plt Count (150-450) k/uL MPV Neutrophils % % Lymphocytes % % Monocytes % % Eosinophils % % Basophils % % Neutrophils # (1.3-7.7) k/uL Lymphocytes # (1.0-4.8) k/uL Monocytes # (0-1.0) k/uL Eosinophils # (0-0.7) k/uL Basophils # (0-0.2) k/uL PT (9.0-12.0) sec INR (<1.2) APTT (22.0-30.0) sec D-Dimer (<0.60) mg/L FEU Sodium (137-145) mmol/L Potassium (3.5-5.1) mmol/L Chloride (98-107) mmol/L Carbon Dioxide (22-30) mmol/L Anion Gap mmol/L BUN (9-20) mg/dL Creatinine (0.66-1.25) mg/dL Est GFR (CKD-EPI)AfAm (>60 ml/min/1.73 sqM) Est GFR (CKD-EPI)NonAf (>60 ml/min/1.73 sqM) Glucose (74-99) mg/dL Lactic Ac Sepsis Rflx Y Plasma Lactic Acid Jorge (0.7-2.0) mmol/L Calcium (8.4-10.2) mg/dL Magnesium (1.6-2.3) mg/dL Total Bilirubin (0.2-1.3) mg/dL AST (17-59) U/L ALT (4-49) U/L Alkaline Phosphatase (38-126) U/L Lactate Dehydrogenase (313-618) U/L Troponin I (0.000-0.034) ng/mL C-Reactive Protein (<10.0) mg/L Total Protein (6.3-8.2) g/dL Albumin (3.5-5.0) g/dL Coronavirus (PCR) (Not Detectd) Disposition Clinical Impression: COVID-19, Elevated troponin Disposition: ADMITTED IP TO THIS HOSP Referrals: Albert Kruger DO [Primary Care Provider] - 1-2 days Time of Disposition: 17:20
[2020-05-19 14:21] LABS: Basophils # (A) 0.1 k/uL (0-0.2); Basophils % (A) 1 %; Eosinophils % (A) 0 %; HCT 44.5 % (39.0-53.0); HGB 15.5 gm/dL (13.0-17.5); Lymphocytes # (A) 0.8 k/uL (1.0-4.8); Lymphocytes % (A) 12 %; MCH 29.8 pg (25.0-35.0); MCHC 34.9 g/dL (31.0-37.0); MCV 85.5 fL (80.0-100.0); Monocytes # (A) 0.3 k/uL (0-1.0); Monocytes % (A) 4 %; Neutrophils # (A) 5.2 k/uL (1.3-7.7); Neutrophils % (A) 81 %; Platelet Count 146 k/uL (150-450); RDW 13.2 % (11.5-15.5); WBC 6.5 k/uL (3.8-10.6)
[2020-05-19 14:33] LABS: ALT 37 U/L (4-49); AST 50 U/L (17-59); African American GFR (CKD) >90 (>60 ml/min/1.73 sqM); Albumin 3.7 g/dL (3.5-5.0); Alkaline Phosphatase 57 U/L (38-126); Anion Gap 10 mmol/L; Blood Urea Nitrogen 16 mg/dL (9-20); Calcium 9.4 mg/dL (8.4-10.2); Carbon Dioxide 20 mmol/L (22-30); Chloride 97 mmol/L (98-107); Glucose 427 mg/dL (74-99); LDH 863 U/L (313-618); Magnesium 1.6 mg/dL (1.6-2.3); Non-African American GFR(CKD) >90 (>60 ml/min/1.73 sqM); Sodium 127 mmol/L (137-145); Total Bilirubin 0.7 mg/dL (0.2-1.3); Total Protein 6.3 g/dL (6.3-8.2)
--- NOTE | 2020-05-19 14:37 | XR ---
EXAMINATION TYPE: XR chest 1V portable DATE OF EXAM: 05/19/2020 COMPARISON: 03/30/2019 INDICATION: Suspected Covid TECHNIQUE: Single frontal view of the chest is obtained. FINDINGS: The heart size is normal. The pulmonary vasculature is normal. The lungs are clear. Suspicious scattered peripheral filtrates are not readily apparent. IMPRESSION: 1. No acute pulmonary process. Radiologic findings may lag behind clinical symptoms
[2020-05-19 14:41] LABS: D-Dimer 0.57 mg/L FEU (<0.60); INR 0.9 (<1.2); Partial Thromboplastin Time 25.8 sec (22.0-30.0); Prothrombin Time 9.8 sec (9.0-12.0)
[2020-05-19 14:45] LABS: C Reactive Protein 42.7 mg/L (<10.0)
[2020-05-19] MEDS ORDERED: SODIUM CHLORIDE 0.9% 1,000 ML IV ONE (15:07)
[2020-05-19] MEDS ORDERED: ASPIRIN 81 MG PO STA (17:20)
[2020-05-19] MEDS ORDERED: NITROGLYCERIN SL TABS 0.4 MG TAB SUBLINGUAL PRN (17:20)
[2020-05-19] MEDS ORDERED: FAMOTIDINE 20 MG/2 ML VIAL IV STA (18:22)
[2020-05-19] MEDS ORDERED: INSULIN ASPART (NovoLOG) 100 UNIT/ML VIAL SQ STA (18:25)
[2020-05-19] MEDS: SODIUM CHLORIDE 0.9% 1,000 ML IV SCH (18:29)
[2020-05-19] MEDS ORDERED: GABAPENTIN 300 MG CAP PO PRN (19:39)
[2020-05-19] MEDS ORDERED: ASPIRIN 81 MG PO SCH (21:00)
[2020-05-19] MEDS ORDERED: INSULIN DETEMIR (LEVEMIR) 100 UNIT/ML SYR SQ SCH (21:00)
[2020-05-19 21:26] LABS: Glucose,Whole Blood 343 mg/dL (75-99)
[2020-05-19] MEDS: DABIGATRAN 150 MG CAP PO SCH (21:29)
[2020-05-19] MEDS: metFORMIN 500 MG TAB PO SCH (21:29)
[2020-05-19] MEDS: ATORVASTATIN 40 MG TAB PO SCH (21:29)
[2020-05-19] MEDS: lisinopriL 20 MG TAB PO SCH (21:30)
[2020-05-19] MEDS: INSULIN ASPART (NovoLOG) 100 UNIT/ML VIAL SQ SCH (21:30)
[2020-05-19] MEDS: hydrALAZINE HCL 10 MG TAB PO SCH (21:30)
[2020-05-19] MEDS: SOTALOL 120 MG TAB PO SCH (21:30)
[2020-05-19] MEDS: glipiZIDE 10 MG TAB PO SCH (21:30)
[2020-05-19] MEDS: FAMOTIDINE 20 MG/2 ML VIAL IV SCH (21:30)
[2020-05-20 00:13] LABS: Ferritin 573.7 ng/mL (22.0-322.0)
[2020-05-20 03:36] LABS: Cholesterol 150 mg/dL (<200); HDL Cholesterol 33 mg/dL (40-60); LDL Cholesterol,Calculated 83 mg/dL (0-99); Triglycerides 168 mg/dL (<150)
[2020-05-20 06:12] LABS: Glucose,Whole Blood 125 mg/dL (75-99)
[2020-05-20] MEDS: INSULIN ASPART (NovoLOG) 100 UNIT/ML VIAL SQ SCH ×4 (06:23→21:42)
[2020-05-20] MEDS: SODIUM CHLORIDE 0.9% 1,000 ML IV SCH ×2 (06:44→21:43)
[2020-05-20] MEDS ORDERED: ASPIRIN 325 MG TAB PO SCH (09:00)
[2020-05-20] MEDS ORDERED: CHLORTHALIDONE 25 MG TAB PO SCH (09:00)
[2020-05-20] MEDS: DABIGATRAN 150 MG CAP PO SCH ×2 (09:59→21:41)
[2020-05-20] MEDS: CHOLECALCIFEROL 400 UNIT TAB PO SCH (09:59)
[2020-05-20] MEDS: FAMOTIDINE 20 MG/2 ML VIAL IV SCH ×2 (09:59→21:42)
[2020-05-20] MEDS: ASCORBIC ACID 500 MG TAB PO SCH (10:00)
[2020-05-20] MEDS: metFORMIN 500 MG TAB PO SCH ×2 (10:00→16:46)
[2020-05-20] MEDS: glipiZIDE 10 MG TAB PO SCH ×2 (10:00→21:41)
[2020-05-20] MEDS: SOTALOL 120 MG TAB PO SCH ×2 (10:00→21:41)
[2020-05-20] MEDS: DILTIAZEM CD 120 MG CAP.ER.24H PO SCH (10:00)
[2020-05-20] MEDS: lisinopriL 20 MG TAB PO SCH ×2 (10:01→21:41)
[2020-05-20] MEDS: hydrALAZINE HCL 10 MG TAB PO SCH ×3 (10:01→21:41)
[2020-05-20] MEDS: CYANOCOBALAMIN 500 MCG TAB PO SCH (10:02)
[2020-05-20] MEDS: LINAGLIPTIN 5 MG TABLET PO SCH (10:02)
[2020-05-20] MEDS: PSYLLIUM HUSK 100% 6 GM PACKET PO SCH (10:03)
[2020-05-20] MEDS: MULTIVITAMINS, THERA 1 EACH TAB PO SCH (10:03)
[2020-05-20] MEDS: MAGNESIUM OXIDE 400 MG TAB PO SCH (10:03)
[2020-05-20] MEDS: POTASSIUM CHLORIDE ER 10 MEQ TAB.ER.PRT PO SCH (10:03)
[2020-05-20] MEDS: ACETAMINOPHEN TAB 325 MG TAB PO PRN ×2 (10:04→21:41)
[2020-05-20] MEDS: DOCUSATE 100 MG CAP PO SCH (10:16)
[2020-05-20 12:04] LABS: Glucose,Whole Blood 191 mg/dL (75-99)
--- NOTE | 2020-05-20 15:09 | P.CRDCN ---
History of Present Illness History of present illness: HISTORY OF PRESENTING ILLNESS This is a pleasant 74-year-old male past medical history significant for diabetes mellitus, hypertension and paroxysmal atrial fibrillation on pradaxa for thromboembolic protection. He was last seen in the office by Dr. Smith in 2017. We have been asked to see in consultation for elevated troponin. He presented to the hospital with symptoms of fever, weakness and shortness of breath that have been going on since Monday. On arrival he was diagnosed with COVID 19. He denies chest pain or palpitations. He is seen and interviewed from the doorway to limit exposure. He is resting comfortably laying flat in bed in no acute distress. Overall he states he feels weak and tired. EKG on arrival reveals sinus mechanism heart rate of 96 with PACs with non-specific ST abnormalities and T-wave inversions. Chest xray negative for an acute cardiopulmonary process. Telemetry tracings reveal sinus mechanism. Laboratory data reviewed, WBC 6.5, hemoglobin 15.5, platelets 146, d-dimer 0.57, sodium 127, potassium 4.0, creatinine 0.62, lactic acid on admission 2. 3 repeat after hydration 1.6, troponin 0.062, 0.059 0.066, C-reactive protein 42.7, LDL 83, HDL 33 and pro-calcitonin 0.07. Current daily cardiac medications include aspirin 81 mg daily, chlorthalidone 12.5 mg daily, per DEXA 150 mg twice a day, lisinopril 40 mg twice a day, sotalol 120 mg twice a day, rosuvastatin 20 mg at bedtime, diltiazem 120 mg daily and hydralazine 10 mg 3 times a day. Most recent echocardiogram obtained 2017 in the office revealed preserved LV systolic function with ejection fraction 55%. REVIEW OF SYSTEMS At the time of my exam: CONSTITUTIONAL: Complains of fever or chills and generalized weakness and fatigue. CARDIOVASCULAR: Denies chest pain, shortness of breath, orthopnea, PND or palpitations. RESPIRATORY: Complains of cough. GASTROINTESTINAL: Denies abdominal pain, diarrhea, constipation, nausea or vomiting. MUSCULOSKELETAL: Denies myalgias. NEUROLOGIC: Denies numbness, tingling or weakness. ENDOCRINE: Denies weight change, polydipsia or polyurina. GENITOURINARY: Denies burning, hematuria or urgency with micturation. HEMATOLOGIC: Denies history of anemia or bleeding. PHYSICAL EXAMINATION Limited exam performed to limit COVID 19 exposure Blood pressure 151/72 heart rate 66 afebrile and maintaining oxygen saturation on 100F. CONSTITUTIONAL: No apparent distress. NEUROLOGIC EXAMINATION: Patient is awake, alert and oriented x3. ASSESSMENT Acute Covid 19 infection Hyponatremia Lactic acidosis Troponin leak, flat not related to primary myocardial injury. Paroxysmal atrial fibrillation on criminal investigator anti-coagulation Hypertension Diabetes mellitus Dyslipidemia PLAN Continue beta blockers and anti-coagulation. Obtain 2D echocardiogram to assess cardiac structure and function. Ongoing medical management and treatment of COVID 19. Troponin leak is not consistent with primary myocaridal injury pattern. Thank you kindly for this consultation. Nurse Practitioner note has been reviewed, I agree with a documented findings and plan of care. Patient was seen and examined. 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, prostate ca with surgery, cataract removed right eye slight one in left eye, arthritis, sleep apnea with cpap History of Any Multi-Drug Resistant Organisms: None Reported Past Surgical History: Prostate Surgery, Tonsillectomy Additional Past Surgical History / Comment(s): tumor removal right hip, back surgery Past Anesthesia/Blood Transfusion Reactions: No Reported Reaction Past Psychological History: No Psychological Hx Reported Smoking Status: Former smoker Past Alcohol Use History: Occasional Past Drug Use History: None Reported - Past Family History Father Family Medical History: Coronary Artery Disease (CAD), Myocardial Infarction ([place]) Additional Family Medical History / Comment(s): in from a heart attack, valve replacement Mother Family Medical History: No Reported History Medications and Allergies Home Medications Medication Instructions Recorded Confirmed Type Chlorthalidone 12.5 mg PO DAILY 02/01/14 05/19/20 History Dabigatran [Pradaxa] 150 mg PO BID 02/01/14 05/19/20 History glipiZIDE [Glucotrol] 20 mg PO BID 02/01/14 05/19/20 History lisinopriL 40 mg PO BID 02/01/14 05/19/20 History metFORMIN HCL 1,000 mg PO BID 02/01/14 05/19/20 History Ascorbic Acid [Vitamin C] 1,000 mg PO DAILY 05/03/15 05/19/20 History Aspirin 81 mg PO HS 05/03/15 05/19/20 History Cholecalciferol [Vitamin D3] 400 unit PO DAILY 05/03/15 05/19/20 History Cinnamon Bark [Cinnamon] 1,000 mg PO AC-BID 05/03/15 05/19/20 History Docusate Sodium [Dok] 100 mg PO DAILY 05/03/15 05/19/20 History Multivitamin [Men's Multi-Vitamin] 1 tab PO DAILY 05/03/15 05/19/20 History [place]-3 Fatty Acids/Fish Oil [Fish 1 cap PO DAILY 05/03/15 05/19/20 History Oil 1,000 mg Softgel] Potassium 99 mg PO DAILY 05/03/15 05/19/20 History Cyanocobalamin (Vitamin B-12) 1,000 mcg PO DAILY 03/30/19 05/19/20 History [Vitamin B-12] Insulin Glargine,Hum.rec.anlog 70 unit SQ HS 03/30/19 05/19/20 History [Lantus Solostar] Magnesium Oxide [Montemayor] 500 mg PO DAILY 03/30/19 05/19/20 History Psyllium Husk [Reguloid] 0.8 gm PO BID 03/30/19 05/19/20 History Sotalol [Betapace] 120 mg PO BID 03/30/19 05/19/20 History Alogliptin Benzoate [Alogliptin] 25 mg PO DAILY 05/19/20 05/19/20 History Gabapentin [Neurontin] 600 mg PO TID PRN 05/19/20 05/19/20 History Rosuvastatin Calcium [Crestor] 20 mg PO HS 05/19/20 05/19/20 History dilTIAZem HCL [dilTIAZem HCL 24Hr 120 mg PO DAILY 05/19/20 05/19/20 History ER (Xr)] hydrALAZINE HCL [Apresoline] 10 mg PO TID 05/19/20 05/19/20 History Allergies Allergy/AdvReac Type Severity Reaction Status Date / Time bee venom protein (honey bee) Allergy Anaphylaxis Verified 05/19/20 14:42 Physical Exam Vitals: Vital Signs Temp Pulse Pulse Pulse Pulse Resp BP 05/20/20 12:30 100.0 F H 66 18 05/20/20 09:10 101.9 F H 70 18 05/20/20 04:00 98.7 F 64 18 05/20/20 02:00 64 18 05/20/20 00:00 99.8 F H 68 18 05/19/20 20:00 98.1 F 85 85 18 05/19/20 18:35 164/78 05/19/20 18:20 99.4 F 104 H 20 05/19/20 16:47 75 16 104/68 05/19/20 15:32 78 18 100/73 BP Pulse Ox 05/20/20 12:30 151/72 95 05/20/20 09:10 177/78 96 05/20/20 04:00 144/72 95 05/20/20 02:00 05/20/20 00:00 146/76 94 L 05/19/20 20:00 155/75 95 05/19/20 18:35 05/19/20 18:20 97 05/19/20 16:47 98 05/19/20 15:32 98 Intake and Output 05/19/20 05/20/20 05/20/20 22:59 06:59 14:59 Intake Total 120 Balance 120 Intake: Oral 120 Other: Voiding Method Toilet Toilet # Voids 3 3 # Bowel Movements 3 Weight 95.254 kg 84 kg Results 05/19/20 14:10 05/19/20 14:10 Cardiac Enzymes 05/19/20 05/19/20 05/19/20 Range/Units 14:05 17:41 20:04 Troponin I 0.062 H* 0.059 H* 0.066 H* (0.000-0.034) ng/mL Lipids 05/19/20 Range/Units 14:05 Triglycerides 168 H (<150) mg/dL Cholesterol 150 (<200) mg/dL HDL Cholesterol 33 L (40-60) mg/dL Current Medications Generic Name Dose Route Start Last Admin Trade Name Freq PRN Reason Stop Dose Admin Acetaminophen 650 mg 05/19/20 23:35 05/20/20 10:04 Acetaminophen Tab 325 Mg Tab PO 650 mg Q6HR PRN Administration Fever and/ or Pain Ascorbic Acid 1,000 mg 05/20/20 09:00 05/20/20 10:00 Ascorbic Acid 500 Mg Tab PO 1,000 mg DAILY ADRIANNE Administration Aspirin 325 mg 05/20/20 09:00 05/20/20 10:00 Aspirin 325 Mg Tab PO 325 mg DAILY ADRIANNE Administration Atorvastatin Calcium 40 mg 05/19/20 21:00 05/19/20 21:29 Atorvastatin 40 Mg Tab PO 40 mg HS ADRIANNE Administration Chlorthalidone 12.5 mg 05/20/20 09:00 05/20/20 10:05 Chlorthalidone 25 Mg Tab PO 12.5 mg DAILY ADRIANNE Administration Cholecalciferol 400 unit 05/20/20 09:00 05/20/20 09:59 Cholecalciferol 400 Unit Tab PO 400 unit DAILY ADRIANNE Administration Cyanocobalamin 1,000 mcg 05/20/20 09:00 05/20/20 10:02 Cyanocobalamin 500 Mcg Tab PO 1,000 mcg DAILY ADRIANNE Administration Dabigatran 150 mg 05/19/20 21:00 05/20/20 09:59 Dabigatran 150 Mg Cap PO 150 mg BID ADRIANNE Administration Diltiazem HCl 120 mg 05/20/20 09:00 05/20/20 10:00 Diltiazem Cd 120 Mg Cap.Er.24h PO Not Given DAILY ADRIANNE Docusate Sodium 100 mg 05/20/20 09:00 05/20/20 10:16 Docusate 100 Mg Cap PO Not Given DAILY [facility] Famotidine 20 mg 05/19/20 21:00 05/20/20 09:59 Famotidine 20 Mg/2 Ml Vial IV 20 mg Q12HR ADRIANNE Administration Gabapentin 600 mg 05/19/20 19:39 Gabapentin 300 Mg Cap PO TID PRN Pain Glipizide 20 mg 05/19/20 21:00 05/20/20 10:00 Glipizide 10 Mg Tab PO 20 mg BID ADRIANNE Administration Hydralazine HCl 10 mg 05/19/20 22:00 05/20/20 10:01 Hydralazine Hcl 10 Mg Tab PO 10 mg TID ADRIANNE Administration Sodium Chloride 1,000 mls @ 75 mls/hr 05/19/20 17:30 05/20/20 06:44 Saline 0.9% IV 75 mls/hr .[id number] ADRIANNE Administration Insulin Aspart 0 unit 05/19/20 21:00 05/20/20 13:10 Insulin Aspart (Novolog) 100 Unit/Ml Vial SQ 2 unit ACHS ADRIANNE Administration Protocol Insulin Detemir 70 unit 05/19/20 21:00 05/19/20 21:30 Insulin Detemir (Levemir) 100 Unit/Ml Syr SQ 70 unit HS ADRIANNE Administration Linagliptin 5 mg 05/20/20 09:00 05/20/20 10:02 Linagliptin 5 Mg Tablet PO 5 mg DAILY ADRIANNE Administration Lisinopril 40 mg 05/19/20 21:00 05/20/20 10:01 Lisinopril 20 Mg Tab PO 40 mg BID ADRIANNE Administration Magnesium Oxide 400 mg 05/20/20 09:00 05/20/20 10:03 Magnesium Oxide 400 Mg Tab PO 400 mg DAILY ADRIANNE Administration Metformin HCl 1,000 mg 05/19/20 21:00 05/20/20 10:00 Metformin 500 Mg Tab PO 1,000 mg BID-W/MEALS ADRIANNE Administration Multivitamins 1 each 05/20/20 09:00 05/20/20 10:03 Multivitamins, Thera 1 Each Tab PO 1 each DAILY ADRIANNE Administration Nitroglycerin 0.4 mg 05/19/20 17:20 Nitroglycerin Sl Tabs 0.4 Mg Tab SUBLINGUAL Q5M PRN Chest Pain Potassium Chloride 10 meq 05/20/20 09:00 05/20/20 10:03 Potassium Chloride Er 10 Meq Tab.Er.Prt PO 10 meq DAILY ADRIANNE Administration Psyllium Hydrophilic Mucilloid 6 gm 05/20/20 09:00 05/20/20 10:03 Psyllium Husk 100% 6 Gm Packet PO Not Given DAILY ADRIANNE Sotalol HCl 120 mg 05/19/20 21:00 05/20/20 10:00 Sotalol 120 Mg Tab PO Not Given BID ADRIANNE Intake and Output 05/19/20 05/20/20 05/20/20 22:59 06:59 14:59 Intake Total 120 Balance 120 Intake: Oral 120 Other: Voiding Method Toilet Toilet # Voids 3 3 # Bowel Movements 3 Weight 95.254 kg 84 kg 05/19/20 14:10 05/19/20 14:10
[2020-05-20 16:30] LABS: Glucose,Whole Blood 62 mg/dL (75-99)
[2020-05-20] MEDS: ZINC SULFATE 220 MG CAP PO SCH (16:30)
[2020-05-20] MEDS: DEXAMETHASONE SOD PHOSPHATE 10 MG/ML 1 ML VIAL IV SCH (16:30)
[2020-05-20 16:47] LABS: Glucose,Whole Blood 64 mg/dL (75-99)
[2020-05-20] MEDS ORDERED: DEXTROSE 50% SYRINGE 50 ML IVP ONE (16:50)
[2020-05-20 17:17] LABS: Glucose,Whole Blood 67 mg/dL (75-99)
[2020-05-20 17:19] LABS: Glucose,Whole Blood 161 mg/dL (75-99)
[2020-05-20 20:06] LABS: Glucose,Whole Blood 155 mg/dL (75-99)
[2020-05-20] MEDS: ATORVASTATIN 40 MG TAB PO SCH (21:41)
[2020-05-20] MEDS: INSULIN DETEMIR (LEVEMIR) 100 UNIT/ML SYR SQ SCH (21:42)
--- NOTE | 2020-05-20 22:43 | P.HPIM ---
History of Present Illness H&P Date: 05/20/20 Chief Complaint: Fever cough History of presenting complaint: This is a pleasant 74-year-old patient of . Chronic stable medical conditions include atrial fibrillation, diabetes, hypertension, hyperlipidemia, obstructive sleep apnea with CPAP, history of prostate cancer with surgery. 6 days ago that is on Monday patient's was diagnosed with COVID. Following day he started having symptoms initially started with shortness of breath and cough than tiredness and fatigue progressed. Fevers. No loss of taste or smell. Very poor appetite. The left some diarrhea. Patient's is also admitted to the hospital. Special short of breath with exertion. Review of systems: GEN.: Tired fever EYES: None HEENT: None NECK: None RESPIRATORY: As above CARDIOVASCULAR: None GASTROINTESTINAL: Diarrhea GENITOURINARY: None MUSCULOSKELETAL: Muscle weakness LYMPHATICS: None HEMATOLOGICAL: None PSYCHIATRY: None NEUROLOGICAL: None Past medical history to include: Atrial fibrillation, diabetes mellitus, hyperlipidemia, hypertension, ulcerative sleep apnea with CPAP, prostate cancer with surgery, arthritis, Social history: . Former smoker. Alcohol occasionally. Physical examination: VITAL SIGNS: 101.9, 70, 18, 151 with 72, 95% room air GENERAL: BMI 26.6, laying in bed, rather tired. EYES: Pupils equal. Conjunctiva normal. HEENT: External appearance of nose and ears normal, oral cavity grossly normal. NECK: JVD not raised; masses not palpable. HEART: First and second heart sounds are normal; no edema. LUNGS: Respiratory rate increased, decreased breath sounds. ABDOMEN: Soft, nontender, liver spleen not palpable, no masses palpable. PSYCH: Alert and oriented x3; mood and affect tiredl. NEUROLOGICAL: Cranial nerves grossly intact; no facial asymmetry, power and sensation grossly intact. LYMPHATICS: No lymph nodes palpable in the axilla and neck INVESTIGATIONS, reviewed in the clinical context: White count 6.5 hemoglobin 15.5 platelets 146 lymphocytes 0.8 Sodium 127 potassium 4 creatinine 0.62 lactic acid 2.3 Troponin I 0.062, 0.05 CRP 42.7 pro-calcitonin 0.07 d-dimer 0.57 Coronavirus PCR detected EKG tracing personally reviewed by me-sinus rhythm with ST segment depression and T-wave changes across all leads Chest x-ray film personally reviewed by me-bilateral infiltrates Assessment: -Bilateral COVID 19 pneumonia -Acute hypoxic respiratory failure from pneumonia, patient gets very short of breath on exertion -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 Supplementation including zinc Pepcid. Home medications resumed. Accu-Cheks will be followed. Use incentive spirometry. ID was consulted. Past Medical History Past Medical History: Atrial Fibrillation, Cancer, Diabetes Mellitus, Eye Disorder, Hyperlipidemia, Hypertension, Prostate Disorder, Sleep Apnea/CPAP/ BIPAP Additional Past Medical History / Comment(s): History of open reduction internal fixation of the right hip with excision of bony tumor, prostate ca with surgery, cataract removed right eye slight one in left eye, arthritis, sleep apnea with cpap History of Any Multi-Drug Resistant Organisms: None Reported Past Surgical History: Prostate Surgery, Tonsillectomy Additional Past Surgical History / Comment(s): tumor removal right hip, back surgery Past Anesthesia/Blood Transfusion Reactions: No Reported Reaction Past Psychological History: No Psychological Hx Reported Smoking Status: Former smoker Past Alcohol Use History: Occasional Past Drug Use History: None Reported - Past Family History Father Family Medical History: Coronary Artery Disease (CAD), Myocardial Infarction ([place]) Additional Family Medical History / Comment(s): in from a heart attack, valve replacement Mother Family Medical History: No Reported History Medications and Allergies Home Medications Medication Instructions Recorded Confirmed Type Chlorthalidone 12.5 mg PO DAILY 02/01/14 05/19/20 History Dabigatran [Pradaxa] 150 mg PO BID 02/01/14 05/19/20 History glipiZIDE [Glucotrol] 20 mg PO BID 02/01/14 05/19/20 History lisinopriL 40 mg PO BID 02/01/14 05/19/20 History metFORMIN HCL 1,000 mg PO BID 02/01/14 05/19/20 History Ascorbic Acid [Vitamin C] 1,000 mg PO DAILY 05/03/15 05/19/20 History Aspirin 81 mg PO HS 05/03/15 05/19/20 History Cholecalciferol [Vitamin D3] 400 unit PO DAILY 05/03/15 05/19/20 History Cinnamon Bark [Cinnamon] 1,000 mg PO AC-BID 05/03/15 05/19/20 History Docusate Sodium [Dok] 100 mg PO DAILY 05/03/15 05/19/20 History Multivitamin [Men's Multi-Vitamin] 1 tab PO DAILY 05/03/15 05/19/20 History [place]-3 Fatty Acids/Fish Oil [Fish 1 cap PO DAILY 05/03/15 05/19/20 History Oil 1,000 mg Softgel] Potassium 99 mg PO DAILY 05/03/15 05/19/20 History Cyanocobalamin (Vitamin B-12) 1,000 mcg PO DAILY 03/30/19 05/19/20 History [Vitamin B-12] Insulin Glargine,Hum.rec.anlog 70 unit SQ HS 03/30/19 05/19/20 History [Lantus Solostar] Magnesium Oxide [Montemayor] 500 mg PO DAILY 03/30/19 05/19/20 History Psyllium Husk [Reguloid] 0.8 gm PO BID 03/30/19 05/19/20 History Sotalol [Betapace] 120 mg PO BID 03/30/19 05/19/20 History Alogliptin Benzoate [Alogliptin] 25 mg PO DAILY 05/19/20 05/19/20 History Gabapentin [Neurontin] 600 mg PO TID PRN 05/19/20 05/19/20 History Rosuvastatin Calcium [Crestor] 20 mg PO HS 05/19/20 05/19/20 History dilTIAZem HCL [dilTIAZem HCL 24Hr 120 mg PO DAILY 05/19/20 05/19/20 History ER (Xr)] hydrALAZINE HCL [Apresoline] 10 mg PO TID 05/19/20 05/19/20 History Allergies Allergy/AdvReac Type Severity Reaction Status Date / Time bee venom protein (honey bee) Allergy Anaphylaxis Verified 05/19/20 14:42 Physical Exam Vitals: Vital Signs Temp Pulse Pulse Pulse Resp BP BP 05/20/20 04:00 98.7 F 64 18 144/72 05/20/20 02:00 64 18 05/20/20 00:00 99.8 F H 68 18 146/76 05/19/20 20:00 98.1 F 85 85 18 155/75 05/19/20 18:35 164/78 05/19/20 18:20 99.4 F 104 H 20 05/19/20 16:47 75 16 104/68 05/19/20 15:32 78 18 100/73 05/19/20 13:46 98.8 F 88 18 129/66 Pulse Ox 05/20/20 04:00 95 05/20/20 02:00 05/20/20 00:00 94 L 05/19/20 20:00 95 05/19/20 18:35 05/19/20 18:20 97 05/19/20 16:47 98 05/19/20 15:32 98 05/19/20 13:46 98 Intake and Output 05/19/20 05/20/20 05/20/20 22:59 06:59 14:59 Other: Voiding Method Toilet Toilet # Voids 3 Weight 95.254 kg 84 kg Results CBC & Chem 7: 05/19/20 14:10 05/19/20 14:10 Labs: Abnormal Lab Results - Last 24 Hours (Table) 05/19/20 05/19/20 05/19/20 Range/Units 14:05 14:05 14:10 Plt Count 146 L (150-450) k/uL Lymphocytes # 0.8 L (1.0-4.8) k/uL Sodium (137-145) mmol/L Chloride (98-107) mmol/L Carbon Dioxide (22-30) mmol/L Creatinine (0.66-1.25) mg/dL Glucose (74-99) mg/dL POC Glucose (mg/dL) (75-99) mg/dL Plasma Lactic Acid Jorge (0.7-2.0) mmol/L Ferritin (22.0-322.0) ng/mL Lactate Dehydrogenase (313-618) U/L Troponin I 0.062 H* (0.000-0.034) ng/mL C-Reactive Protein (<10.0) mg/L Triglycerides 168 H (<150) mg/dL HDL Cholesterol 33 L (40-60) mg/dL Coronavirus (PCR) (Not Detectd) 05/19/20 05/19/20 05/19/20 Range/Units 14:10 14:10 14:21 Plt Count (150-450) k/uL Lymphocytes # (1.0-4.8) k/uL Sodium 127 L (137-145) mmol/L Chloride 97 L (98-107) mmol/L Carbon Dioxide 20 L (22-30) mmol/L Creatinine 0.62 L (0.66-1.25) mg/dL Glucose 427 H (74-99) mg/dL POC Glucose (mg/dL) (75-99) mg/dL Plasma Lactic Acid Jorge 2.3 H* (0.7-2.0) mmol/L Ferritin 573.7 H (22.0-322.0) ng/mL Lactate Dehydrogenase 863 H (313-618) U/L Troponin I (0.000-0.034) ng/mL C-Reactive Protein 42.7 H (<10.0) mg/L Triglycerides (<150) mg/dL HDL Cholesterol (40-60) mg/dL Coronavirus (PCR) Detected A (Not Detectd) 05/19/20 05/19/20 05/19/20 Range/Units 17:41 20:04 21:24 Plt Count (150-450) k/uL Lymphocytes # (1.0-4.8) k/uL Sodium (137-145) mmol/L Chloride (98-107) mmol/L Carbon Dioxide (22-30) mmol/L Creatinine (0.66-1.25) mg/dL Glucose (74-99) mg/dL POC Glucose (mg/dL) 343 H (75-99) mg/dL Plasma Lactic Acid Jorge (0.7-2.0) mmol/L Ferritin (22.0-322.0) ng/mL Lactate Dehydrogenase (313-618) U/L Troponin I 0.059 H* 0.066 H* (0.000-0.034) ng/mL C-Reactive Protein (<10.0) mg/L Triglycerides (<150) mg/dL HDL Cholesterol (40-60) mg/dL Coronavirus (PCR) (Not Detectd) 05/20/20 Range/Units 06:10 Plt Count (150-450) k/uL Lymphocytes # (1.0-4.8) k/uL Sodium (137-145) mmol/L Chloride (98-107) mmol/L Carbon Dioxide (22-30) mmol/L Creatinine (0.66-1.25) mg/dL Glucose (74-99) mg/dL POC Glucose (mg/dL) 125 H (75-99) mg/dL Plasma Lactic Acid Jorge (0.7-2.0) mmol/L Ferritin (22.0-322.0) ng/mL Lactate Dehydrogenase (313-618) U/L Troponin I (0.000-0.034) ng/mL C-Reactive Protein (<10.0) mg/L Triglycerides (<150) mg/dL HDL Cholesterol (40-60) mg/dL Coronavirus (PCR) (Not Detectd) Thrombosis Risk Factor Assmnt - Choose All That Apply Each Risk Factor Represents 2 Points: Age 61-74 years Thrombosis Risk Factor Assessment Total Risk Factor Score: 2 Thrombosis Risk Factor Assessment Level: Low Risk
[2020-05-21 06:16] LABS: Glucose,Whole Blood 199 mg/dL (75-99)
--- NOTE | 2020-05-21 06:56 | CONS ---
CONSULTATION DATE OF SERVICE: 05/20/2020 REASON FOR CONSULTATION: COVID-19 infection. HISTORY OF PRESENT ILLNESS: The patient is a 74-year-old male presenting to the ER yesterday for evaluation of increasing shortness of breath and cough and fatigue. The patient's symptoms started on Monday, that is 3 days prior to presentation to hospital. Apparently the patient was exposed to his who has been diagnosed with COVID and did have symptoms several days before the patient started getting sick. The patient has been complaining of extreme weakness and no energy. Has been complaining of shortness of breath. The patient did have a cough which is moderate in intensity, not bringing up any sputum. Some nausea, no vomiting. Did have some diarrhea but no chest pain. With these symptoms, the patient was evaluated by the ER physician. On arrival to the ER, the patient was afebrile. He did have a fever of 101.9 degrees Fahrenheit this morning. The patient is currently saturating 95% to 96% on room air. No need for supplemental oxygen. No tachycardia. The patient did have a normal white count with lymphopenia. D-dimer has been negative. The patient's LDH 863, CRP 42.7. Lactic acid was elevated. Creatinine was normal. Procalcitonin was normal. Bauer PCR came back positive. Blood culture so far negative. The patient did have a chest x-ray, no acute pulmonary process. Infectious Disease was consulted for further management. REVIEW OF SYMPTOMS: Positive points have been mentioned in HPI. Rest of systems are negative. PAST MEDICAL HISTORY: Atrial fibrillation, diabetes mellitus, hyperlipidemia, hypertension, prostate disorder, sleep apnea. PAST SURGICAL HISTORY: ORIF of the right hip, prostate cancer surgery, cataract surgery on the left eye. SOCIAL HISTORY: No history of smoking. Rarely drinks. No drug use. FAMILY HISTORY: Father with history of coronary disease. ALLERGIES: No known drug allergies. MEDICATIONS: The patient is currently on Tylenol, vitamin C, aspirin, Lipitor, vitamin D3, Pradaxa, Colace, Pepcid, Glucotrol, NovoLog, Levemir, Tradjenta, Glucophage, zinc sulfate. PHYSICAL EXAMINATION: Blood pressure is 154/88 with a pulse of 72, temperature 100.8, T-max 101.9. He is 96% on room air. General description is an elderly male lying in bed in no distress. No tachypnea or accessory muscle of respiration use. HEENT: Examination shows no pallor or scleral icterus. Oral mucous membrane is dry. Neck: Trachea central, no thyromegaly. LUNGS: Unlabored breathing with decreased intensity of breath sounds. No wheeze. HEART: S1, S2. Regular rate and rhythm. ABDOMEN: Soft, no tenderness. No guarding or rigidity. EXTREMITIES: No edema of the feet. SKIN: Examination no rash or mass palpable. NEUROLOGICAL: Patient is awake, alert, oriented times two. Mood and affect normal. LABS: Hemoglobin is 15.5, white count 6.5, lymphocytes 0.8, BUN of 16, creatinine 0.62. Lactic acid 2.3. Blood cultures negative. Chest x-ray shows no acute process. PLAN: Patient with acute COVID-19 infection in this patient currently with no significant pulmonary effects and no evidence of any hypoxemia, likely a mild infection. PLAN: 1. The patient was started on dexamethasone IV daily and continue with Pradaxa and zinc sulfate. 2. The patient is currently does not quality for remdesivir. 3. Droplet isolation and respiratory support. 4. We will follow on clinical condition and further adjust medication if needed. Thank you for this consultation. Will follow this patient along with you. MMODL / IJN: [id number] /
[2020-05-21] MEDS: metFORMIN 500 MG TAB PO SCH ×2 (06:58→15:50)
[2020-05-21] MEDS: INSULIN ASPART (NovoLOG) 100 UNIT/ML VIAL SQ SCH ×4 (06:58→20:45)
--- NOTE | 2020-05-21 09:41 | ECHOF ---
Referral Reason:sob MEASUREMENTS -------- HEIGHT: 177.8 cm WEIGHT: 83.9 kg BP: 144/72 RVIDd: 3.4 cm (< 3.3) IVSd: 1.6 cm (0.6 - 1.1) LVIDd: 4.3 cm (3.9 - 5.3) LVPWd: 1.9 cm (0.6 - 1.1) IVSs: 2.1 cm LVIDs: 3.1 cm LVPWs: 1.9 cm LAESV Index (A-L): 33.64 ml/m Ao Diam: 3.7 cm (2.0 - 3.7) AV Cusp: 2.2 cm (1.5 - 2.6) MV E Abhinav: 0.68 m/s MV DecT: 272 ms MV A Abhinav: 0.89 m/s MV E/A Ratio: 0.77 RAP: 5.00 mmHg RVSP: 28.61 mmHg FINDINGS -------- Sinus rhythm. This was a technically adequate study. The left ventricular size is normal. There is moderate concentric left ventricular hypertrophy. O verall left ventricular systolic function is low-normal with, an EF between 50 - 55 %. The right ventricle is mildly enlarged. LA is midly dilated 29-33ml/m2. The right atrium was not well visualized. Interatrial and interventricular septum intact. The aortic valve is trileaflet and appears structurally normal. There is mild aortic valve sclerosi s. Trace to mild aortic regurgitation. There is no evidence of aortic stenosis. Mild mitral regurgitation is present. Mild tricuspid regurgitation present. There is no evidence of pulmonary hypertension. The right v entricular systolic pressure, as measured by Doppler, is 28.61mmHg. There is no pulmonic regurgitation present. The aortic root size is normal. IVC Not well visulized. There is no pericardial effusion. CONCLUSIONS -------- 1. The left ventricular size is normal. 2. There is moderate concentric left ventricular hypertrophy. 3. Overall left ventricular systolic function is low-normal with, an EF between 50 - 55 %. 4. The right ventricle is mildly enlarged. 5. LA is midly dilated 29-33ml/m2. 6. There is mild aortic valve sclerosis. 7. Trace to mild aortic regurgitation. 8. Mild mitral regurgitation is present. 9. Mild tricuspid regurgitation present. [employer]: Yessica Garcia RDCS
[2020-05-21] MEDS: lisinopriL 20 MG TAB PO SCH ×2 (10:34→20:45)
[2020-05-21] MEDS: CYANOCOBALAMIN 500 MCG TAB PO SCH (10:34)
[2020-05-21] MEDS: glipiZIDE 10 MG TAB PO SCH ×2 (10:34→20:45)
[2020-05-21] MEDS: FAMOTIDINE 20 MG TAB PO SCH ×2 (10:34→20:45)
[2020-05-21] MEDS: MAGNESIUM OXIDE 400 MG TAB PO SCH (10:34)
[2020-05-21] MEDS: POTASSIUM CHLORIDE ER 10 MEQ TAB.ER.PRT PO SCH (10:34)
[2020-05-21] MEDS: DOCUSATE 100 MG CAP PO SCH (10:34)
[2020-05-21] MEDS: SOTALOL 120 MG TAB PO SCH ×2 (10:34→20:45)
[2020-05-21] MEDS: ZINC SULFATE 220 MG CAP PO SCH (10:35)
[2020-05-21] MEDS: DILTIAZEM CD 120 MG CAP.ER.24H PO SCH (10:35)
[2020-05-21] MEDS: CHOLECALCIFEROL 400 UNIT TAB PO SCH (10:35)
[2020-05-21] MEDS: LINAGLIPTIN 5 MG TABLET PO SCH (10:35)
[2020-05-21] MEDS: MULTIVITAMINS, THERA 1 EACH TAB PO SCH (10:35)
[2020-05-21] MEDS: DEXAMETHASONE SOD PHOSPHATE 10 MG/ML 1 ML VIAL IV SCH (10:35)
[2020-05-21] MEDS: ASPIRIN 81 MG PO SCH (10:35)
[2020-05-21] MEDS: hydrALAZINE HCL 10 MG TAB PO SCH ×3 (10:35→20:45)
[2020-05-21] MEDS: DABIGATRAN 150 MG CAP PO SCH ×2 (10:35→20:45)
[2020-05-21] MEDS: ASCORBIC ACID 500 MG TAB PO SCH (10:35)
[2020-05-21] MEDS: PSYLLIUM HUSK 100% 6 GM PACKET PO SCH (10:36)
[2020-05-21] MEDS: SODIUM CHLORIDE 0.9% 1,000 ML IV SCH (10:36)
[2020-05-21 12:10] LABS: Glucose,Whole Blood 150 mg/dL (75-99)
[2020-05-21 17:12] LABS: Glucose,Whole Blood 219 mg/dL (75-99)
[2020-05-21 20:32] LABS: Glucose,Whole Blood 231 mg/dL (75-99)
--- NOTE | 2020-05-21 20:41 | P.PN ---
Progress Note - Text Progress Note Date: 05/21/20 Chief Complaint: Fever cough History of presenting complaint: This is a pleasant 74-year-old patient of . Chronic stable medical conditions include atrial fibrillation, diabetes, hypertension, hyperlipidemia, obstructive sleep apnea with CPAP, history of prostate cancer with surgery. 6 days ago that is on Monday patient's was diagnosed with COVID. Following day he started having symptoms initially started with shortness of breath and cough than tiredness and fatigue progressed. Fevers. No loss of taste or smell. Very poor appetite. some diarrhea. Patient's is also admitted to the hospital. Especially short of breath with exertion. Admitted with bilateral COVID 19 pneumonia, acute reactive hypoxic respiratory failure, acute myocarditis from COVID 19. Patient started on dexamethasone and Lovenox. Today-patient feeling a bit better. Breathing is better. Appetite improving. Review of systems: Was done for constitutional, cardiovascular, GI, pulmonary. relevant finding as above Active Medications Acetaminophen (Acetaminophen Tab 325 Mg Tab) 650 mg PO Q6HR PRN PRN Reason: Fever and/ or Pain Last Admin: 05/20/20 21:41 Dose: 650 mg Documented by: Ascorbic Acid (Ascorbic Acid 500 Mg Tab) 1,000 mg PO DAILY [facility] Last Admin: 05/21/20 10:35 Dose: 1,000 mg Documented by: Aspirin (Aspirin 81 Mg) 81 mg PO DAILY [facility] Last Admin: 05/21/20 10:35 Dose: 81 mg Documented by: Atorvastatin Calcium (Atorvastatin 40 Mg Tab) 40 mg PO HS [facility] Last Admin: 05/20/20 21:41 Dose: 40 mg Documented by: Cholecalciferol (Cholecalciferol 400 Unit Tab) 400 unit PO DAILY [facility] Last Admin: 05/21/20 10:35 Dose: 400 unit Documented by: Cyanocobalamin (Cyanocobalamin 500 Mcg Tab) 1,000 mcg PO DAILY [facility] Last Admin: 05/21/20 10:34 Dose: 1,000 mcg Documented by: Dabigatran (Dabigatran 150 Mg Cap) 150 mg PO BID [facility] Last Admin: 05/21/20 10:35 Dose: 150 mg Documented by: Dexamethasone Sodium Phosphate (Dexamethasone Sod Phosphate 10 Mg/Ml 1 Ml Vial) 6 mg IV DAILY [facility] Last Admin: 05/21/20 10:35 Dose: 6 mg Documented by: Diltiazem HCl (Diltiazem Cd 120 Mg Cap.Er.24h) 120 mg PO DAILY [facility] Last Admin: 05/21/20 10:35 Dose: 120 mg Documented by: Docusate Sodium (Docusate 100 Mg Cap) 100 mg PO DAILY [facility] Last Admin: 05/21/20 10:34 Dose: 100 mg Documented by: Famotidine (Famotidine 20 Mg Tab) 20 mg PO BID [facility] Last Admin: 05/21/20 10:34 Dose: 20 mg Documented by: Gabapentin (Gabapentin 300 Mg Cap) 600 mg PO TID PRN PRN Reason: Pain Glipizide (Glipizide 10 Mg Tab) 20 mg PO BID [facility] Last Admin: 05/21/20 10:34 Dose: 20 mg Documented by: Hydralazine HCl (Hydralazine Hcl 10 Mg Tab) 10 mg PO TID [facility] Last Admin: 05/21/20 15:51 Dose: 10 mg Documented by: Sodium Chloride (Saline 0.9%) 1,000 mls @ 75 mls/hr IV .[id number] [facility] Last Admin: 05/21/20 10:36 Dose: Not Given Documented by: Insulin Aspart (Insulin Aspart (Novolog) 100 Unit/Ml Vial) 0 unit SQ ACHS [facility]; Protocol Last Admin: 05/21/20 17:33 Dose: 3 unit Documented by: Insulin Detemir (Insulin Detemir (Levemir) 100 Unit/Ml Syr) 56 unit SQ HS [facility] Last Admin: 05/20/20 21:42 Dose: 56 unit Documented by: Linagliptin (Linagliptin 5 Mg Tablet) 5 mg PO DAILY [facility] Last Admin: 05/21/20 10:35 Dose: 5 mg Documented by: Lisinopril (Lisinopril 20 Mg Tab) 40 mg PO BID [facility] Last Admin: 05/21/20 10:34 Dose: 40 mg Documented by: Magnesium Oxide (Magnesium Oxide 400 Mg Tab) 400 mg PO DAILY [facility] Last Admin: 05/21/20 10:34 Dose: 400 mg Documented by: Metformin HCl (Metformin 500 Mg Tab) 1,000 mg PO BID-W/MEALS [facility] Last Admin: 05/21/20 15:50 Dose: 1,000 mg Documented by: Multivitamins (Multivitamins, Thera 1 Each Tab) 1 each PO DAILY [facility] Last Admin: 05/21/20 10:35 Dose: 1 each Documented by: Nitroglycerin (Nitroglycerin Sl Tabs 0.4 Mg Tab) 0.4 mg SUBLINGUAL Q5M PRN PRN Reason: Chest Pain Potassium Chloride (Potassium Chloride Er 10 Meq Tab.Er.Prt) 10 meq PO DAILY [facility] Last Admin: 05/21/20 10:34 Dose: 10 meq Documented by: Psyllium Hydrophilic Mucilloid (Psyllium Husk 100% 6 Gm Packet) 6 gm PO DAILY [facility] Last Admin: 05/21/20 10:36 Dose: Not Given Documented by: Sotalol HCl (Sotalol 120 Mg Tab) 120 mg PO BID [facility] Last Admin: 05/21/20 10:34 Dose: 120 mg Documented by: Zinc Sulfate (Zinc Sulfate 220 Mg Cap) 220 mg PO DAILY [facility] Last Admin: 05/21/20 10:35 Dose: 220 mg Documented by: Physical examination: VITAL SIGNS: 98.2, 64, 20, 1 59 x 80, 96% room air GENERAL: BMI 26.6, laying in bed, looking better PSYCH: Alert and oriented x3; mood and affect tired. NEUROLOGICAL: Cranial nerves grossly intact; no facial asymmetry, moving all 4 limbs Additional exam as per nursing INVESTIGATIONS, reviewed in the clinical context: May 21: Accu-Cheks 199, 150, 219 White count 6.5 hemoglobin 15.5 platelets 146 lymphocytes 0.8 Sodium 127 potassium 4 creatinine 0.62 lactic acid 2.3 Troponin I 0.062, 0.05 CRP 42.7 pro-calcitonin 0.07 d-dimer 0.57 Coronavirus PCR detected EKG tracing personally reviewed by me-sinus rhythm with ST segment depression a nd T-wave changes across all leads Chest x-ray film personally reviewed by me-bilateral infiltrates Assessment: -Bilateral COVID 19 pneumonia-clinically improving -Acute hypoxic respiratory failure from pneumonia, patient gets very short of breath on exertion-improving -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 Encouraged to sit up in a chair and use incentive spirometry. Continue other medications
[2020-05-21] MEDS: INSULIN DETEMIR (LEVEMIR) 100 UNIT/ML SYR SQ SCH (20:46)
[2020-05-21] MEDS: ATORVASTATIN 40 MG TAB PO SCH (20:46)
--- NOTE | 2020-05-21 22:08 | PN ---
PROGRESS NOTE DATE OF SERVICE: 05/21/2020 REASON FOR FOLLOWUP: Acute COVID-19 infection. INTERVAL HISTORY: The patient's overall fever pattern has improved. The patient is afebrile today. The patient is breathing slightly comfortably. Denies having any chest pain. Minimal cough. No nausea, vomiting, abdominal pain or diarrhea. PHYSICAL EXAMINATION: Blood pressure 159/80 with a pulse of 64, temperature 98.2. He is 96% on room air. General description is an elderly male lying in bed in no distress. RESPIRATORY SYSTEM: Unlabored breathing with decreased intensity of breath sounds. No wheeze. HEART: S1, S2. Regular rate and rhythm. ABDOMEN: Soft. No tenderness. LABS: No new labs have been obtained today. DIAGNOSTIC IMPRESSION AND PLAN: Patient with acute COVID-19 infection in this patient who responded to the dexamethasone. He has been continued on Pradaxa that he was taking before and zinc sulfate. The patient did not have any hypoxemia and did not qualify for the remdesivir. We will repeat his inflammatory markers tomorrow and continue with the dexamethasone and zinc sulfate. Continue with supportive care. MMODL / IJN: [id number] /
[2020-05-22] MEDS: SODIUM CHLORIDE 0.9% 1,000 ML IV SCH ×2 (05:49→12:24)
[2020-05-22 06:12] LABS: Glucose,Whole Blood 45 mg/dL (75-99)
[2020-05-22 06:12] LABS: Glucose,Whole Blood 49 mg/dL (75-99)
[2020-05-22 06:32] LABS: Glucose,Whole Blood 48 mg/dL (75-99)
[2020-05-22 07:00] LABS: Glucose,Whole Blood 80 mg/dL (75-99)
[2020-05-22] MEDS: metFORMIN 500 MG TAB PO SCH ×2 (07:02→16:01)
[2020-05-22] MEDS: INSULIN ASPART (NovoLOG) 100 UNIT/ML VIAL SQ SCH ×4 (07:02→21:09)
[2020-05-22] MEDS: DILTIAZEM CD 120 MG CAP.ER.24H PO SCH (08:34)
[2020-05-22] MEDS: FAMOTIDINE 20 MG TAB PO SCH ×2 (08:34→21:08)
[2020-05-22] MEDS: ZINC SULFATE 220 MG CAP PO SCH (08:34)
[2020-05-22] MEDS: ASCORBIC ACID 500 MG TAB PO SCH (08:34)
[2020-05-22] MEDS: hydrALAZINE HCL 10 MG TAB PO SCH ×3 (08:35→21:08)
[2020-05-22] MEDS: DOCUSATE 100 MG CAP PO SCH (08:35)
[2020-05-22] MEDS: LINAGLIPTIN 5 MG TABLET PO SCH (08:35)
[2020-05-22] MEDS: glipiZIDE 10 MG TAB PO SCH ×2 (08:35→21:08)
[2020-05-22] MEDS: POTASSIUM CHLORIDE ER 10 MEQ TAB.ER.PRT PO SCH (08:35)
[2020-05-22] MEDS: CYANOCOBALAMIN 500 MCG TAB PO SCH (08:35)
[2020-05-22] MEDS: MAGNESIUM OXIDE 400 MG TAB PO SCH (08:35)
[2020-05-22] MEDS: ASPIRIN 81 MG PO SCH (08:35)
[2020-05-22] MEDS: DEXAMETHASONE SOD PHOSPHATE 10 MG/ML 1 ML VIAL IV SCH (08:35)
[2020-05-22] MEDS: MULTIVITAMINS, THERA 1 EACH TAB PO SCH (08:35)
[2020-05-22] MEDS: lisinopriL 20 MG TAB PO SCH ×2 (08:35→21:08)
[2020-05-22] MEDS: DABIGATRAN 150 MG CAP PO SCH ×2 (08:36→21:09)
[2020-05-22] MEDS: SOTALOL 120 MG TAB PO SCH ×2 (08:36→21:09)
[2020-05-22] MEDS: CHOLECALCIFEROL 400 UNIT TAB PO SCH (08:36)
[2020-05-22] MEDS: PSYLLIUM HUSK 100% 6 GM PACKET PO SCH (08:37)
[2020-05-22 11:44] LABS: Glucose,Whole Blood 132 mg/dL (75-99)
[2020-05-22 12:03] LABS: Basophils % (A) 0 %; Eosinophils % (A) 0 %; HCT 40.5 % (39.0-53.0); Lymphocytes # (A) 0.4 k/uL (1.0-4.8); Lymphocytes % (A) 4 %; MCH 29.5 pg (25.0-35.0); MCHC 34.5 g/dL (31.0-37.0); MCV 85.7 fL (80.0-100.0); Mean Platelet Volume 8.4; Monocytes # (A) 0.3 k/uL (0-1.0); Monocytes % (A) 3 %; Neutrophils % (A) 92 %; Platelet Count 183 k/uL (150-450); RBC 4.73 m/uL (4.30-5.90); RDW 13.1 % (11.5-15.5); WBC 11.9 k/uL (3.8-10.6)
[2020-05-22 12:43] LABS: ALT 45 U/L (4-49); AST 52 U/L (17-59); African American GFR (CKD) >90 (>60 ml/min/1.73 sqM); Albumin 3.1 g/dL (3.5-5.0); Alkaline Phosphatase 67 U/L (38-126); Anion Gap 5 mmol/L; Blood Urea Nitrogen 14 mg/dL (9-20); C Reactive Protein 23.2 mg/L (<10.0); Calcium 8.1 mg/dL (8.4-10.2); Carbon Dioxide 25 mmol/L (22-30); Chloride 101 mmol/L (98-107); Glucose 120 mg/dL (74-99); LDH 857 U/L (313-618); Non-African American GFR(CKD) >90 (>60 ml/min/1.73 sqM); Potassium 3.6 mmol/L (3.5-5.1); Sodium 131 mmol/L (137-145); Total Bilirubin 0.5 mg/dL (0.2-1.3); Total Protein 5.7 g/dL (6.3-8.2)
[2020-05-22] MEDS: CALCIUM CARBONATE LIQUID 500 MG/5 ML CUP PO SCH ×3 (13:06→21:08)
[2020-05-22 16:56] LABS: Glucose,Whole Blood 178 mg/dL (75-99)
[2020-05-22 20:48] LABS: Glucose,Whole Blood 298 mg/dL (75-99)
[2020-05-22] MEDS: INSULIN DETEMIR (LEVEMIR) 100 UNIT/ML SYR SQ SCH (21:09)
[2020-05-22] MEDS: ATORVASTATIN 40 MG TAB PO SCH (21:09)
--- NOTE | 2020-05-22 22:38 | P.PN ---
Progress Note - Text Progress Note Date: 05/22/20 Chief Complaint: Fever cough History of presenting complaint: This is a pleasant 74-year-old patient of . Chronic stable medical conditions include atrial fibrillation, diabetes, hypertension, hyperlipidemia, obstructive sleep apnea with CPAP, history of prostate cancer with surgery. 6 days ago that is on Monday patient's was diagnosed with COVID. Following day he started having symptoms initially started with shortness of breath and cough than tiredness and fatigue progressed. Fevers. No loss of taste or smell. Very poor appetite. some diarrhea. Patient's is also admitted to the hospital. Especially short of breath with exertion. Admitted with bilateral COVID 19 pneumonia, acute reactive hypoxic respiratory failure, acute myocarditis from COVID 19. Patient started on dexamethasone and Lovenox. Today-breathing a bit better. Oral intake improving. Was reluctant to sit out. Did made him sit up in a chair. Review of systems: Was done for constitutional, cardiovascular, GI, pulmonary. relevant finding as above Active Medications Acetaminophen (Acetaminophen Tab 325 Mg Tab) 650 mg PO Q6HR PRN PRN Reason: Fever and/ or Pain Last Admin: 05/20/20 21:41 Dose: 650 mg Documented by: Ascorbic Acid (Ascorbic Acid 500 Mg Tab) 1,000 mg PO DAILY [facility] Last Admin: 05/22/20 08:34 Dose: 1,000 mg Documented by: Aspirin (Aspirin 81 Mg) 81 mg PO DAILY [facility] Last Admin: 05/22/20 08:35 Dose: 81 mg Documented by: Atorvastatin Calcium (Atorvastatin 40 Mg Tab) 40 mg PO HS [facility] Last Admin: 05/22/20 21:09 Dose: 40 mg Documented by: Calcium Carbonate/Glycine (Calcium Carbonate Liquid 500 Mg/5 Ml Cup) 500 mg PO ACHS [facility] Last Admin: 05/22/20 21:08 Dose: 500 mg Documented by: Cholecalciferol (Cholecalciferol 400 Unit Tab) 400 unit PO DAILY [facility] Last Admin: 05/22/20 08:36 Dose: 400 unit Documented by: Cyanocobalamin (Cyanocobalamin 500 Mcg Tab) 1,000 mcg PO DAILY [facility] Last Admin: 05/22/20 08:35 Dose: 1,000 mcg Documented by: Dabigatran (Dabigatran 150 Mg Cap) 150 mg PO BID [facility] Last Admin: 12/11/20 21:09 Dose: 150 mg Documented by: Dexamethasone Sodium Phosphate (Dexamethasone Sod Phosphate 10 Mg/Ml 1 Ml Vial) 6 mg IV DAILY [facility] Last Admin: 05/22/20 08:35 Dose: 6 mg Documented by: Diltiazem HCl (Diltiazem Cd 120 Mg Cap.Er.24h) 120 mg PO DAILY [facility] Last Admin: 05/22/20 08:34 Dose: 120 mg Documented by: Docusate Sodium (Docusate 100 Mg Cap) 100 mg PO DAILY [facility] Last Admin: 05/22/20 08:35 Dose: 100 mg Documented by: Famotidine (Famotidine 20 Mg Tab) 20 mg PO BID [facility] Last Admin: 05/22/20 21:08 Dose: 20 mg Documented by: Gabapentin (Gabapentin 300 Mg Cap) 600 mg PO TID PRN PRN Reason: Pain Glipizide (Glipizide 10 Mg Tab) 20 mg PO BID [facility] Last Admin: 05/22/20 21:08 Dose: 20 mg Documented by: Hydralazine HCl (Hydralazine Hcl 10 Mg Tab) 10 mg PO TID [facility] Last Admin: 05/22/20 21:08 Dose: 10 mg Documented by: Sodium Chloride (Saline 0.9%) 1,000 mls @ 75 mls/hr IV .[id number] [facility] Last Admin: 05/22/20 12:24 Dose: Not Given Documented by: Insulin Aspart (Insulin Aspart (Novolog) 100 Unit/Ml Vial) 0 unit SQ ACHS [facility]; Protocol Last Admin: 05/22/20 21:09 Dose: 5 unit Documented by: Insulin Detemir (Insulin Detemir (Levemir) 100 Unit/Ml Syr) 56 unit SQ HS [facility] Last Admin: 05/22/20 21:09 Dose: 56 unit Documented by: Linagliptin (Linagliptin 5 Mg Tablet) 5 mg PO DAILY [facility] Last Admin: 05/22/20 08:35 Dose: 5 mg Documented by: Lisinopril (Lisinopril 20 Mg Tab) 40 mg PO BID [facility] Last Admin: 05/22/20 21:08 Dose: 40 mg Documented by: Magnesium Oxide (Magnesium Oxide 400 Mg Tab) 400 mg PO DAILY [facility] Last Admin: 05/22/20 08:35 Dose: 400 mg Documented by: Metformin HCl (Metformin 500 Mg Tab) 1,000 mg PO BID-W/MEALS [facility] Last Admin: 05/22/20 16:01 Dose: 1,000 mg Documented by: Multivitamins (Multivitamins, Thera 1 Each Tab) 1 each PO DAILY [facility] Last Admin: 05/22/20 08:35 Dose: 1 each Documented by: Nitroglycerin (Nitroglycerin Sl Tabs 0.4 Mg Tab) 0.4 mg SUBLINGUAL Q5M PRN PRN Reason: Chest Pain Potassium Chloride (Potassium Chloride Er 10 Meq Tab.Er.Prt) 10 meq PO DAILY [facility] Last Admin: 05/22/20 08:35 Dose: 10 meq Documented by: Psyllium Hydrophilic Mucilloid (Psyllium Husk 100% 6 Gm Packet) 6 gm PO DAILY [facility] Last Admin: 05/22/20 08:37 Dose: Not Given Documented by: Sotalol HCl (Sotalol 120 Mg Tab) 120 mg PO BID [facility] Last Admin: 05/22/20 21:09 Dose: 120 mg Documented by: Zinc Sulfate (Zinc Sulfate 220 Mg Cap) 220 mg PO DAILY [facility] Last Admin: 05/22/20 08:34 Dose: 220 mg Documented by: Physical examination: VITAL SIGNS: 99, 74, 20, 161/68, 94% room air GENERAL: BMI 26.6, sitting up in a chair, tired PSYCH: Alert and oriented x3; mood and affect tired. NEUROLOGICAL: Cranial nerves grossly intact; no facial asymmetry, moving all 4 limbs Additional exam as per nursing INVESTIGATIONS, reviewed in the clinical context: May 21: Accu-Cheks 199, 150, 219 White count 6.5 hemoglobin 15.5 platelets 146 lymphocytes 0.8 Sodium 127 potassium 4 creatinine 0.62 lactic acid 2.3 Troponin I 0.062, 0.05 CRP 42.7 pro-calcitonin 0.07 d-dimer 0.57 Coronavirus PCR detected EKG tracing personally reviewed by me-sinus rhythm with ST segment depression and T-wave changes across all leads Chest x-ray film personally reviewed by me-bilateral infiltrates Assessment: -Bilateral COVID 19 pneumonia-clinically improving -Acute hypoxic respiratory failure from pneumonia, patient gets very short of breath on exertion-improving -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 Discussed with the patient. Continue current medication. Hopefully home in next 24 hours.
--- NOTE | 2020-05-22 22:57 | PN ---
PROGRESS NOTE DATE OF SERVICE: 05/22/2020 REASON FOR FOLLOWUP: Acute COVID-19 pneumonia. INTERVAL HISTORY: The patient is currently afebrile. The patient is breathing more comfortably. The patient denies having any chest pain. Minimal cough. No nausea, no vomiting. No abdominal pain or diarrhea. PHYSICAL EXAMINATION: Blood pressure is 148/79 with a pulse of 86, temperature 98.1. He is 95% on room air. General description is an elderly male lying in bed in no distress. RESPIRATORY SYSTEM: Unlabored breathing with decreased intensity of breath sounds. No wheeze. HEART: S1, S2. Regular rate and rhythm. ABDOMEN: Soft. No tenderness. LABS: Hemoglobin is 14, white count 11.9, BUN of 14, creatinine 0.56. Blood culture negative. DIAGNOSTIC IMPRESSION AND PLAN: Patient with acute COVID-19 infection, and this patient has clinically responded to initial treatment regimen of dexamethasone. He was continued on his Pradaxa and zinc sulfate. The patient still is not requiring any supplemental oxygen; hence did not qualify for the remdesivir therapy. However, the patient did well without it. Continue with supportive care. MMODL / IJN: [id number] /
[2020-05-22 23:37] VITALS: RESP 18
[2020-05-23 06:17] LABS: Glucose,Whole Blood 56 mg/dL (75-99)
[2020-05-23] MEDS: CALCIUM CARBONATE LIQUID 500 MG/5 ML CUP PO SCH ×2 (06:32→12:28)
[2020-05-23 06:40] LABS: Glucose,Whole Blood 85 mg/dL (75-99)
[2020-05-23] MEDS: metFORMIN 500 MG TAB PO SCH (06:40)
[2020-05-23] MEDS: SODIUM CHLORIDE 0.9% 1,000 ML IV SCH ×2 (06:40→12:53)
[2020-05-23] MEDS: INSULIN ASPART (NovoLOG) 100 UNIT/ML VIAL SQ SCH ×2 (06:40→12:28)
[2020-05-23] MEDS: ASPIRIN 81 MG PO SCH (09:18)
[2020-05-23] MEDS: FAMOTIDINE 20 MG TAB PO SCH (09:18)
[2020-05-23] MEDS: ASCORBIC ACID 500 MG TAB PO SCH (09:18)
[2020-05-23] MEDS: CYANOCOBALAMIN 500 MCG TAB PO SCH (09:18)
[2020-05-23] MEDS: hydrALAZINE HCL 10 MG TAB PO SCH (09:18)
[2020-05-23] MEDS: glipiZIDE 10 MG TAB PO SCH (09:18)
[2020-05-23] MEDS: CHOLECALCIFEROL 400 UNIT TAB PO SCH (09:18)
[2020-05-23] MEDS: lisinopriL 20 MG TAB PO SCH (09:18)
[2020-05-23] MEDS: DEXAMETHASONE SOD PHOSPHATE 10 MG/ML 1 ML VIAL IV SCH (09:18)
[2020-05-23] MEDS: DABIGATRAN 150 MG CAP PO SCH (09:18)
[2020-05-23] MEDS: MULTIVITAMINS, THERA 1 EACH TAB PO SCH (09:19)
[2020-05-23] MEDS: SOTALOL 120 MG TAB PO SCH (09:19)
[2020-05-23] MEDS: DOCUSATE 100 MG CAP PO SCH (09:19)
[2020-05-23] MEDS: POTASSIUM CHLORIDE ER 10 MEQ TAB.ER.PRT PO SCH (09:19)
[2020-05-23] MEDS: MAGNESIUM OXIDE 400 MG TAB PO SCH (09:19)
[2020-05-23] MEDS: LINAGLIPTIN 5 MG TABLET PO SCH (09:19)
[2020-05-23] MEDS: DILTIAZEM CD 120 MG CAP.ER.24H PO SCH (09:19)
[2020-05-23] MEDS: ZINC SULFATE 220 MG CAP PO SCH (09:19)
[2020-05-23 09:30] VITALS: TEMP 97
[2020-05-23] MEDS: PSYLLIUM HUSK 100% 6 GM PACKET PO SCH (11:03)
[2020-05-23 11:43] LABS: Glucose,Whole Blood 212 mg/dL (75-99)
[2020-05-23 12:28] VITALS: BP 167/70; PULSE 52
--- NOTE | 2020-05-23 21:23 | P.DS ---
Providers Date of admission: 05/19/20 18:36 Expected date of discharge: 05/23/20 Attending physician: Bud Babb Consults: 05/19/20 17:20 Consult Physician Urgent Consulting Provider: [facility] Consult Reason/Comments: Elevated troponin Do you want consulting provider notified?: Yes 05/20/20 14:51 Consult Physician Urgent Consulting Provider: Janie Lewis Consult Reason/Comments: covid positive Do you want consulting provider notified?: Yes Primary care physician: Albert Fraire [facility] Course: Chief Complaint: Fever cough History of presenting complaint: This is a pleasant 74-year-old patient of . Chronic stable medical conditions include atrial fibrillation, diabetes, hypertension, hyperlipidemia, obstructive sleep apnea with CPAP, history of prostate cancer with surgery. 6 days ago that is on Monday patient's was diagnosed with COVID. Following day he started having symptoms initially started with shortness of breath and cough than tiredness and fatigue progressed. Fevers. No loss of taste or smell. Very poor appetite. some diarrhea. Patient's is also admitted to the hospital. Especially short of breath with exertion. Admitted with bilateral COVID 19 pneumonia, acute reactive hypoxic respiratory failure, acute myocarditis from COVID 19. Patient started on dexamethasone and Lovenox. Today-doing well. Starting diet. Pulse oximeter on room air. Ambulating. Discussed with patient. Will be quarantined as per instructions. Administrative Sales Assistant: Dr. Moore from ID Dr. MAGY Sutton from cardiology Physical examination: VITAL SIGNS: 97, 52, 18, 167/70, 94% room air GENERAL: BMI 26.6, sitting up in a chair, tired PSYCH: Alert and oriented x3; mood and affect tired. NEUROLOGICAL: Cranial nerves grossly intact; no facial asymmetry, moving all 4 limbs Additional exam as per nursing INVESTIGATIONS, reviewed in the clinical context: May 21: Accu-Cheks 199, 150, 219 White count 6.5 hemoglobin 15.5 platelets 146 lymphocytes 0.8 Sodium 127 potassium 4 creatinine 0.62 lactic acid 2.3 Troponin I 0.062, 0.05 CRP 42.7 pro-calcitonin 0.07 d-dimer 0.57 Coronavirus PCR detected EKG tracing personally reviewed by me-sinus rhythm with ST segment depression and T-wave changes across all leads Chest x-ray film personally reviewed by me-bilateral infiltrates Assessment: -Bilateral COVID 19 pneumonia-clinically improving -Acute hypoxic respiratory failure from pneumonia, patient gets very short of breath on improved -Acute myocarditis from COVID 19 -Paroxysmal atrial fibrillation currently in sinus rhythm -Diabetes mellitus type 2 -Hyperlipidemia -Essential hypertension -Obstructive sleep apnea uses CPAP Disposition: Home Patient Condition at Discharge: Stable Plan - Discharge Summary Discharge Rx Participant: Yes New Discharge Prescriptions: New dexAMETHasone [Dexamethasone] 6 mg PO DAILY #18 tablet Zinc Sulfate [Orazinc] 220 mg PO DAILY #30 cap Continue lisinopriL 40 mg PO BID Dabigatran [Pradaxa] 150 mg PO BID Potassium 99 mg PO DAILY [place]-3 Fatty Acids/Fish Oil [Fish Oil 1,000 mg Softgel] 1 cap PO DAILY Aspirin 81 mg PO HS Sotalol [Betapace] 120 mg PO BID dilTIAZem HCL [dilTIAZem HCL 24Hr ER (Xr)] 120 mg PO DAILY Rosuvastatin Calcium [Crestor] 20 mg PO HS Gabapentin [Neurontin] 600 mg PO TID PRN PRN Reason: Pain hydrALAZINE HCL [Apresoline] 10 mg PO TID No Action Chlorthalidone 12.5 mg PO DAILY metFORMIN HCL 1,000 mg PO BID glipiZIDE [Glucotrol] 20 mg PO BID Ascorbic Acid [Vitamin C] 1,000 mg PO DAILY Cinnamon Bark [Cinnamon] 1,000 mg PO AC-BID Multivitamin [Men's Multi-Vitamin] 1 tab PO DAILY Docusate Sodium [Dok] 100 mg PO DAILY Cholecalciferol [Vitamin D3] 400 unit PO DAILY Cyanocobalamin (Vitamin B-12) [Vitamin B-12] 1,000 mcg PO DAILY Insulin Glargine,Hum.rec.anlog [Lantus Solostar] 70 unit SQ HS Magnesium Oxide [Montemayor] 500 mg PO DAILY Psyllium Husk [Reguloid] 0.8 gm PO BID Alogliptin Benzoate [Alogliptin] 25 mg PO DAILY Discharge Medication List Chlorthalidone 12.5 mg PO DAILY 02/01/14 [History] Dabigatran [Pradaxa] 150 mg PO BID 02/01/14 [History] glipiZIDE [Glucotrol] 20 mg PO BID 02/01/14 [History] lisinopriL 40 mg PO BID 02/01/14 [History] metFORMIN HCL 1,000 mg PO BID 02/01/14 [History] Ascorbic Acid [Vitamin C] 1,000 mg PO DAILY 05/03/15 [History] Aspirin 81 mg PO HS 05/03/15 [History] Cholecalciferol [Vitamin D3] 400 unit PO DAILY 05/03/15 [History] Cinnamon Bark [Cinnamon] 1,000 mg PO AC-BID 05/03/15 [History] Docusate Sodium [Dok] 100 mg PO DAILY 05/03/15 [History] Multivitamin [Men's Multi-Vitamin] 1 tab PO DAILY 05/03/15 [History] [place]-3 Fatty Acids/Fish Oil [Fish Oil 1,000 mg Softgel] 1 cap PO DAILY 05/03/15 [History] Potassium 99 mg PO DAILY 05/03/15 [History] Cyanocobalamin (Vitamin B-12) [Vitamin B-12] 1,000 mcg PO DAILY 03/30/19 [History] Insulin Glargine,Hum.rec.anlog [Lantus Solostar] 70 unit SQ HS 03/30/19 [History] Magnesium Oxide [Montemayor] 500 mg PO DAILY 03/30/19 [History] Psyllium Husk [Reguloid] 0.8 gm PO BID 03/30/19 [History] Sotalol [Betapace] 120 mg PO BID 03/30/19 [History] Alogliptin Benzoate [Alogliptin] 25 mg PO DAILY 05/19/20 [History] Gabapentin [Neurontin] 600 mg PO TID PRN 05/19/20 [History] Rosuvastatin Calcium [Crestor] 20 mg PO HS 05/19/20 [History] dilTIAZem HCL [dilTIAZem HCL 24Hr ER (Xr)] 120 mg PO DAILY 05/19/20 [History] hydrALAZINE HCL [Apresoline] 10 mg PO TID 05/19/20 [History] Zinc Sulfate [Orazinc] 220 mg PO DAILY #30 cap 05/23/20 [Rx] dexAMETHasone [Dexamethasone] 6 mg PO DAILY #18 tablet 05/23/20 [Rx] Follow up Appointment(s)/Referral(s): Albert Kruger DO [Primary Care Provider] - 1-2 days (Please call on [facility] to schedule a follow up appointment.) Koby Smith MD [STAFF PHYSICIAN] - 2 Weeks (Please call on Monday to schedule a follow up appointment. ) Patient Instructions/Handouts: Viral Pneumonia (DC), Type 2 Diabetes Management for Adults (DC) Discharge Disposition: HOME SELF-CARE Care Plan Goals (MU): Activity as ordered. Diabetic diet. Keep track of glucose levels and report to Primary Care physician at follow up. Blood sugar levels may be elevated while taking steroid.
== END 2020-05-23 16:34 | disposition home or self-care (01) | DRG 177 ==
LOC: EC 13:29 → 3SCARD 18:05 → OBSVTOIN 18:36
PROVIDERS: ADMIT Hospitalist; ATTEND Hospitalist
DX: U07.1 COVID-19 (principal); J12.89 Other viral pneumonia; J96.01 Acute respiratory failure with hypoxia; I40.8 Other acute myocarditis; E87.1 Hypo-osmolality and hyponatremia; E87.2 Acidosis; I48.0 Paroxysmal atrial fibrillation; I10 Essential (primary) hypertension; G47.33 Obstructive sleep apnea (adult) (pediatric); E78.5 Hyperlipidemia, unspecified; D72.810 Lymphocytopenia; E11.9 Type 2 diabetes mellitus without complications; G47.30 Sleep apnea, unspecified; Z79.899 Other long term (current) drug therapy; Z79.84 Long term (current) use of oral hypoglycemic drugs; Z79.82 Long term (current) use of aspirin; Z79.01 Long term (current) use of anticoagulants; Z82.49 Family history of ischemic heart disease and other diseases of the circulatory system; Z85.46 Personal history of malignant neoplasm of prostate; Z87.891 Personal history of nicotine dependence; Z91.030 Bee allergy status; Z90.89 Acquired absence of other organs; Z98.890 Other specified postprocedural states; Z98.41 Cataract extraction status, right eye
CPT/HCPCS: 36415; 71045; 80053; 80061; 82728; 83605; 83615; 83735; 84145; 84484; 85025; 85379; 85610; 85730; 86140; 87040; 87635; 93005; 93306; 96361; 96374; 99285

== ENCOUNTER 2021-12-27 02:51 | Observation (INO) | payer MEDICARE, OTHER ==
[2021-12-27 03:04] LABS: Glucose,Whole Blood 106 mg/dL (70-110)
[2021-12-27 03:11] VITALS: TEMP 97.6
--- NOTE | 2021-12-27 03:21 | ED ---
Weakness HPI - General Chief complaint: Recheck/Abnormal Lab/Rx Stated complaint: Hypoglycemia Time Seen by Provider: 12/27/21 02:52 Source: patient, RN notes reviewed, old records reviewed Mode of arrival: ambulatory Limitations: no limitations - History of Present Illness MD Complaint: generalized weakness (syncope,NearSyncope) -: minutes(s) Location: generalized Severity: moderate Severity scale (1-10): 7 Consistency: intermittent, now resolved Worsens with: none Context: history of similar Associated Symptoms: confusion - Related Data Home Medications Medication Instructions Recorded Confirmed Chlorthalidone 12.5 mg PO DAILY 02/01/14 12/27/21 Dabigatran [Pradaxa] 150 mg PO BID 02/01/14 12/27/21 glipiZIDE [Glucotrol] 20 mg PO BID 02/01/14 12/27/21 lisinopriL 40 mg PO BID 02/01/14 12/27/21 metFORMIN HCL [Glucophage] 1,000 mg PO BID 02/01/14 12/27/21 Aspirin 81 mg PO HS 05/03/15 12/27/21 Cholecalciferol [Vitamin D3 (10 10 mcg PO DAILY 05/03/15 12/27/21 Mcg = 400 Iu)] Docusate Sodium [Dok] 100 mg PO DAILY 05/03/15 12/27/21 [place]-3 Fatty Acids/Fish Oil [Fish 1 cap PO DAILY 05/03/15 12/27/21 Oil 1,000 mg Softgel] Potassium 99 mg PO DAILY 05/03/15 12/27/21 Insulin Glargine,Hum.rec.anlog 70 unit SQ HS 03/30/19 12/27/21 [Lantus Solostar Pen] Magnesium Oxide [Montemayor] 500 mg PO DAILY 03/30/19 12/27/21 Sotalol [Betapace] 120 mg PO BID 03/30/19 12/27/21 Alogliptin Benzoate [Alogliptin] 25 mg PO DAILY 05/19/20 12/27/21 Gabapentin [Neurontin] 600 mg PO TID 05/19/20 12/27/21 Rosuvastatin Calcium [Crestor] 20 mg PO HS 05/19/20 12/27/21 dilTIAZem HCL [dilTIAZem HCL 24Hr 120 mg PO DAILY 05/19/20 12/27/21 ER (Xr)] Ascorbic Acid [Vitamin C] 1,000 mg PO DAILY 12/27/21 12/27/21 EPINEPHrine (Auto Inject) [Epipen] 0.3 mg IM ONCE PRN 12/27/21 12/27/21 Lidocaine 5% Patch [Lidoderm 5% 1 patch TRANSDERM DAILY 12/27/21 12/27/21 Patch] Multivit-Min/FA/Lycopen/Lutein 1 tab PO DAILY 12/27/21 12/27/21 [Centrum Silver Men Tablet] Psyllium Husk [Metamucil] 0.8 gm PO DAILY 12/27/21 12/27/21 hydrALAZINE HCL [Apresoline] 50 mg PO TID 12/27/21 12/27/21 Allergies Allergy/AdvReac Type Severity Reaction Status Date / Time bee venom protein (honey bee) Allergy Anaphylaxis Verified 12/27/21 03:10 Review of Systems ROS Statement: Those systems with pertinent positive or pertinent negative responses have been documented in the HPI. ROS Other: All systems not noted in ROS Statement are negative. 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, prostate ca with surgery, cataract removed right eye slight one in left eye, arthritis, sleep apnea with cpap History of Any Multi-Drug Resistant Organisms: None Reported Past Surgical History: Prostate Surgery, Tonsillectomy Additional Past Surgical History / Comment(s): tumor removal right hip, back surgery Past Anesthesia/Blood Transfusion Reactions: No Reported Reaction Past Psychological History: No Psychological Hx Reported Smoking Status: Former smoker Past Alcohol Use History: Occasional Past Drug Use History: None Reported - Past Family History Father Family Medical History: Coronary Artery Disease (CAD), Myocardial Infarction (MS) Additional Family Medical History / Comment(s): in from a heart attack, valve replacement Mother Family Medical History: No Reported History General Exam Limitations: altered mental status General appearance: alert, in no apparent distress, anxious, lethargic, in distress Head exam: Present: atraumatic, normocephalic, normal inspection Eye exam: Present: normal appearance, PERRL, EOMI. Absent: scleral icterus, conjunctival injection, periorbital swelling ENT exam: Present: normal exam, mucous membranes moist Neck exam: Present: normal inspection. Absent: tenderness, meningismus, lymphadenopathy Respiratory exam: Present: normal lung sounds bilaterally. Absent: respiratory distress, wheezes, rales, rhonchi, stridor Cardiovascular Exam: Present: regular rate, normal rhythm, normal heart sounds. Absent: systolic murmur, diastolic murmur, rubs, gallop, clicks GI/Abdominal exam: Present: soft, normal bowel sounds. Absent: distended, tenderness, guarding, rebound, rigid Extremities exam: Present: normal inspection, full ROM, normal capillary refill. Absent: tenderness, pedal edema, joint swelling, calf tenderness Back exam: Present: normal inspection Neurological exam: Present: alert, oriented X3, CN II-XII intact Psychiatric exam: Present: normal affect, normal mood Skin exam: Present: warm, dry, intact, normal color. Absent: rash Course Vital Signs 12/27/21 12/27/21 12/27/21 03:04 05:10 07:59 Temperature 97.6 F Pulse Rate 46 L 61 70 Respiratory 20 18 15 Rate Blood Pressure 168/81 169/89 178/80 O2 Sat by Pulse 97 96 97 Oximetry 12/27/21 12/27/21 12/27/21 09:44 14:32 16:57 Temperature Pulse Rate 59 L 64 62 Respiratory 15 15 16 Rate Blood Pressure 182/91 184/86 164/80 O2 Sat by Pulse 96 97 94 L Oximetry EKG Findings - EKG Comments: EKG Findings:: EKG shows bradycardia 45 CO 222 QRS 109 QTC 433 Medical Decision Making - Lab Data Result diagrams: 12/27/21 03:15 12/27/21 03:15 Lab Results 12/27/21 12/27/21 12/27/21 Range/Units 03:03 03:15 03:15 WBC 14.3 H (3.8-10.6) k/uL RBC 4.64 (4.30-5.90) m/uL Hgb 13.9 (13.0-17.5) gm/dL Hct 41.6 (39.0-53.0) % MCV 89.8 (80.0-100.0) fL MCH 29.9 (25.0-35.0) pg MCHC 33.3 (31.0-37.0) g/dL RDW 13.7 (11.5-15.5) % Plt Count 181 (150-450) k/uL MPV 9.1 Neutrophils % 78 % Lymphocytes % 14 % Monocytes % 4 % Eosinophils % 2 % Basophils % 0 % Neutrophils # 11.3 H (1.3-7.7) k/uL Lymphocytes # 1.9 (1.0-4.8) k/uL Monocytes # 0.6 (0-1.0) k/uL Eosinophils # 0.3 (0-0.7) k/uL Basophils # 0.0 (0-0.2) k/uL PT 11.9 (9.0-12.0) sec INR 1.1 (<1.2) APTT 39.5 H (22.0-30.0) sec Sodium (137-145) mmol/L Potassium (3.5-5.1) mmol/L Chloride (98-107) mmol/L Carbon Dioxide (22-30) mmol/L Anion Gap mmol/L BUN (9-20) mg/dL Creatinine (0.66-1.25) mg/dL Est GFR (CKD-EPI)AfAm (>60 ml/min/1.73 sqM) Est GFR (CKD-EPI)NonAf (>60 ml/min/1.73 sqM) Glucose (74-99) mg/dL POC Glucose (mg/dL) 106 (70-110) mg/dL POC Glu Rubber Liner ID Chase, [place] Plasma Lactic Acid Jorge (0.7-2.0) mmol/L Calcium (8.4-10.2) mg/dL Phosphorus (2.5-4.5) mg/dL Magnesium (1.6-2.3) mg/dL Total Bilirubin (0.2-1.3) mg/dL AST (17-59) U/L ALT (4-49) U/L Alkaline Phosphatase (38-126) U/L Troponin I (0.000-0.034) ng/mL NT-Pro-B Natriuret Pep pg/mL Total Protein (6.3-8.2) g/dL Albumin (3.5-5.0) g/dL 12/27/21 12/27/21 12/27/21 Range/Units 03:15 03:15 03:15 WBC (3.8-10.6) k/uL RBC (4.30-5.90) m/uL Hgb (13.0-17.5) gm/dL Hct (39.0-53.0) % MCV (80.0-100.0) fL MCH (25.0-35.0) pg MCHC (31.0-37.0) g/dL RDW (11.5-15.5) % Plt Count (150-450) k/uL MPV Neutrophils % % Lymphocytes % % Monocytes % % Eosinophils % % Basophils % % Neutrophils # (1.3-7.7) k/uL Lymphocytes # (1.0-4.8) k/uL Monocytes # (0-1.0) k/uL Eosinophils # (0-0.7) k/uL Basophils # (0-0.2) k/uL PT (9.0-12.0) sec INR (<1.2) APTT (22.0-30.0) sec Sodium 136 L (137-145) mmol/L Potassium 4.6 (3.5-5.1) mmol/L Chloride 105 (98-107) mmol/L Carbon Dioxide 24 (22-30) mmol/L Anion Gap 7 mmol/L BUN 20 (9-20) mg/dL Creatinine 0.59 L (0.66-1.25) mg/dL Est GFR (CKD-EPI)AfAm >90 (>60 ml/min/1.73 sqM) Est GFR (CKD-EPI)NonAf >90 (>60 ml/min/1.73 sqM) Glucose 97 (74-99) mg/dL POC Glucose (mg/dL) (70-110) mg/dL POC Glu Rubber Liner ID Plasma Lactic Acid Jorge 1.3 (0.7-2.0) mmol/L Calcium 9.4 (8.4-10.2) mg/dL Phosphorus 4.4 (2.5-4.5) mg/dL Magnesium 2.2 (1.6-2.3) mg/dL Total Bilirubin 0.8 (0.2-1.3) mg/dL AST 55 (17-59) U/L ALT 33 (4-49) U/L Alkaline Phosphatase 43 (38-126) U/L Troponin I <0.012 (0.000-0.034) ng/mL NT-Pro-B Natriuret Pep pg/mL Total Protein 6.7 (6.3-8.2) g/dL Albumin 4.4 (3.5-5.0) g/dL 12/27/21 12/27/21 12/27/21 Range/Units 03:15 03:36 05:08 WBC (3.8-10.6) k/uL RBC (4.30-5.90) m/uL Hgb (13.0-17.5) gm/dL Hct (39.0-53.0) % MCV (80.0-100.0) fL MCH (25.0-35.0) pg MCHC (31.0-37.0) g/dL RDW (11.5-15.5) % Plt Count (150-450) k/uL MPV Neutrophils % % Lymphocytes % % Monocytes % % Eosinophils % % Basophils % % Neutrophils # (1.3-7.7) k/uL Lymphocytes # (1.0-4.8) k/uL Monocytes # (0-1.0) k/uL Eosinophils # (0-0.7) k/uL Basophils # (0-0.2) k/uL PT (9.0-12.0) sec INR (<1.2) APTT (22.0-30.0) sec Sodium (137-145) mmol/L Potassium (3.5-5.1) mmol/L Chloride (98-107) mmol/L Carbon Dioxide (22-30) mmol/L Anion Gap mmol/L BUN (9-20) mg/dL Creatinine (0.66-1.25) mg/dL Est GFR (CKD-EPI)AfAm (>60 ml/min/1.73 sqM) Est GFR (CKD-EPI)NonAf (>60 ml/min/1.73 sqM) Glucose (74-99) mg/dL POC Glucose (mg/dL) 98 186 H (70-110) mg/dL POC Glu Rubber Liner ID Trina Lakhani Emily Plasma Lactic Acid Jorge (0.7-2.0) mmol/L Calcium (8.4-10.2) mg/dL Phosphorus (2.5-4.5) mg/dL Magnesium (1.6-2.3) mg/dL Total Bilirubin (0.2-1.3) mg/dL AST (17-59) U/L ALT (4-49) U/L Alkaline Phosphatase (38-126) U/L Troponin I (0.000-0.034) ng/mL NT-Pro-B Natriuret Pep 137 pg/mL Total Protein (6.3-8.2) g/dL Albumin (3.5-5.0) g/dL - Radiology Data Radiology results: report reviewed (CXR CTbrain is negative for acute disease), image reviewed Disposition Clinical Impression: Acute right hip pain, Fall, Atrial fibrillation, Bradycardia, Syncope Disposition: ADMITTED IP TO THIS HOSP Condition: Fair Is patient prescribed a controlled substance at d/c from ED?: No
[2021-12-27 03:32] LABS: Basophils % (A) 0 %; Eosinophils # (A) 0.3 k/uL (0-0.7); Eosinophils % (A) 2 %; HCT 41.6 % (39.0-53.0); HGB 13.9 gm/dL (13.0-17.5); Lymphocytes # (A) 1.9 k/uL (1.0-4.8); Lymphocytes % (A) 14 %; MCH 29.9 pg (25.0-35.0); MCHC 33.3 g/dL (31.0-37.0); MCV 89.8 fL (80.0-100.0); Mean Platelet Volume 9.1; Monocytes # (A) 0.6 k/uL (0-1.0); Monocytes % (A) 4 %; Neutrophils # (A) 11.3 k/uL (1.3-7.7); Neutrophils % (A) 78 %; Platelet Count 181 k/uL (150-450); RBC 4.64 m/uL (4.30-5.90); RDW 13.7 % (11.5-15.5); WBC 14.3 k/uL (3.8-10.6)
[2021-12-27 03:38] LABS: Glucose,Whole Blood 98 mg/dL (70-110)
--- NOTE | 2021-12-27 03:39 | XR ---
EXAMINATION TYPE: XR chest 2V DATE OF EXAM: 12/27/2021 COMPARISON: 05/19/2020 HISTORY: Weakness TECHNIQUE: FINDINGS: Heart and mediastinum are normal. Lungs are clear. Diaphragm is normal. Bony thorax appears normal. There are chest leads. IMPRESSION: No active cardiopulmonary disease. No adverse change. Normal heart.
[2021-12-27 03:47] LABS: INR 1.1 (<1.2); Partial Thromboplastin Time 39.5 sec (22.0-30.0); Prothrombin Time 11.9 sec (9.0-12.0)
[2021-12-27 03:49] LABS: ALT 33 U/L (4-49); African American GFR (CKD) >90 (>60 ml/min/1.73 sqM); Anion Gap 7 mmol/L; Blood Urea Nitrogen 20 mg/dL (9-20); Calcium 9.4 mg/dL (8.4-10.2); Carbon Dioxide 24 mmol/L (22-30); Chloride 105 mmol/L (98-107); Glucose 97 mg/dL (74-99); Non-African American GFR(CKD) >90 (>60 ml/min/1.73 sqM); Sodium 136 mmol/L (137-145)
[2021-12-27 03:55] LABS: AST 55 U/L (17-59); Albumin 4.4 g/dL (3.5-5.0); Alkaline Phosphatase 43 U/L (38-126); Magnesium 2.2 mg/dL (1.6-2.3); Phosphorus 4.4 mg/dL (2.5-4.5); Potassium 4.6 mmol/L (3.5-5.1); Total Bilirubin 0.8 mg/dL (0.2-1.3); Total Protein 6.7 g/dL (6.3-8.2)
[2021-12-27 05:10] LABS: Glucose,Whole Blood 186 mg/dL (70-110)
[2021-12-27] MEDS ORDERED: NALOXONE 0.4 MG/ML 1 ML VIAL IV PRN (06:11)
[2021-12-27] MEDS ORDERED: ONDANSETRON 4 MG/2 ML VIAL IVP PRN (06:11)
[2021-12-27] MEDS ORDERED: MORPHINE SULFATE 4 MG/ML SYRINGE IV PRN (06:11)
[2021-12-27] MEDS ORDERED: SODIUM CHLORIDE 0.9% 1,000 ML IV SCH (06:15)
--- NOTE | 2021-12-27 07:40 | CT ---
EXAMINATION TYPE: CT brain wo con CT DLP: 1160.4 mGycm, Automated exposure control for dose reduction was used. DATE OF EXAM: 12/27/2021 5:18 AM COMPARISON: Prior CT Brain from 02/01/2014. CLINICAL INDICATION:Male, 76 years old with history of AMS/hypoglycemia. TECHNIQUE: Brain: Multiple axial CT images of the brain were obtained without IV contrast. FINDINGS: Brain: Extra-axial spaces: No abnormal extra-axial fluid collections. Ventricular system: Dilatation in proportion to cerebral atrophy. Cerebral parenchyma: Cerebral atrophy. No acute intraparenchymal hemorrhage or mass effect. The mack -white junction is well differentiated. Scattered hypoattenuating areas are seen within the white mat ter. Cerebellum: Unremarkable. Mass effect: No evidence of midline shift. Intracranial vasculature: Atherosclerotic calcifications of the intracranial vessels. Soft tissues: Normal. Calvarium/osseous structures: No depressed skull fracture. Paranasal sinuses and mastoid air cells: Mild scattered paranasal sinus disease. Visualized orbits: Bilateral aphakia IMPRESSION: 1. No acute intracranial process. 2. Nonspecific white matter changes, likely secondary to chronic small vessel ischemic disease.
[2021-12-27 08:30] LABS: Glucose,Whole Blood 176 mg/dL (70-110)
--- NOTE | 2021-12-27 08:54 | P.HPIM ---
History of Present Illness H&P Date: 12/27/21 History of Presenting Illness: Patient is a very pleasant 76-year-old male with a past medical history of hypertension, hyperlipidemia, paroxysmal atrial fibrillation on anticoagulation with Pradaxa, insulin-dependent diabetes mellitus type 2, chronic back pain, and diabetic neuropathy to bilateral lower extremities. Patient presented to the emergency department secondary to syncopal episode. Patient reports he remembers getting up to let his dog out, he remembers letting his dog in and then going to the restroom and sitting down on the toilet. Patient states the next thing he remembers is hearing voices of his [id number] and finally awakening and EMS rig. He denies remembering feeling any headache, lightheadedness, dizziness, chest pain, palpitations, shortness of breath, numbness, tingling, or weakness prior to loss of consciousness. No evidence that patient follow or hit head and denies any recent head injuries. Patient's at bedside states that she was awoken by their dog barking and trying to get her attention. She states the dog was outside of the bathroom door and when she went in she found her sitting on the toilet slumped over against the wall, she reports he was extremely diaphoretic and making all sorts of incomprehensible noises/sounds. She states that she made multiple attempts at trying to communicate with him but he did not respond or seem to understand anything she was saying. She reports that she called her sister and [id number] that live 2 doors down and EMS for assistance. She states when EMS took her he was still unresponsive and when she was able to come back and see him in the emergency department he was back to his old self but did not remember anything that happened. Patient currently denies having any headache, lightheadedness, dizziness, chest pain, palpitations, shortness of breath, abdominal pain, nausea, vomiting, or experiencing any new or changes in numbness/tingling/weakness in his extremities. As stated above patient does have diabetic neuropathy with numbness and tingling in bilateral feet at baseline. Patient underwent full evaluation in the emergency department. EKG was completed revealing sinus bradycardia at 45 bpm with a first-degree AV block with ND interval 222 ms and T-wave inversion in leads V1 through V3. CT brain negative for acute intercranial process. POC glucose upon arrival to facility was 106. CBC revealing elevated WBC count of 14.3, CMP unremarkable, lactic acid normal findings at 1.3 and troponin negative at less than 0.012. Patient admi tted under our services with consultation to cardiology secondary to syncopal episode and bradycardia. Consult also placed to neurology secondary to prolonged recovery time and 's reports that patient was making incomprehensible noises/sounds. She denied any shaking or convulsion-like activity and it is unclear whether or not patient had any involuntary loss of bowel or bladder as he was sitting on the toilet, and lactate was negativebut did have minimal leukocytosis. Review of systems: Pertinent positives and negatives as discussed in HPI, a complete review of systems was performed and all other systems are negative. Physical exam: Vital signs reviewed and stable. General: Nontoxic, no distress and appears stated age. Derm: Skin warm and dry, normal coloration for ethnicity. Head: Atraumatic, normocephalic and symmetric. Eyes: EOMs intact, no lid lag, and anicteric sclera Mouth: no lip lesions, mucus membranes moist. No evidence of patient biting tongue or lip. Cardiovascular: regular rate and rhythm with normal S1S2, no murmur, positive posterior tibial pulses bilaterally, and cap refill < 2 seconds. Lungs: Respirations even, regular, and unlabored on room air. Lungs CTA bilaterally, no rhonchi, no rales, no wheezing, and no accessory muscle usage. Abdominal: Obese abdomen soft, nontender to palpation, no guarding, no appreciable organomegaly Ext: ROM intact. No gross muscle atrophy, no edema, no contractures. Bilateral lower extremity venous discoloration. Neuro: Speech clear, face symmetrical and CN II-XII grossly intact with no noted focal neuro deficits Psych: Alert and oriented to person, place, time, and situation. Appropriate and pleasant affect. Assessment and Plan of Care: Syncopal episode Bradycardia -Telemetry monitoring -Echocardiogram -Consult cardiology -Consult neurology -Orthostatic vitals -Fall precautions -EEG -Neuro checks every 4 hours Paroxysmal Atrial fibrillation -Continue anticoagulation with Pradaxa Hypertension -Monitor vital signs and continue daily medication regimen. Hyperlipidemia -Continue daily medication regimen with rosuvastatin. The patient is admitted with an anticipated less than 2 midnight stay for evaluation of syncopal episode CODE STATUS: Full code DVT prophylaxis: Pradaxa Discussed with: Patient, patient's , and RN Anticipated discharge date: 1-[address]: home A total of 45 minutes was spent on the care of this complex patient more than 50% of the time was spent in counseling and care coordination. I reviewed the documentation as provided by the BLAYNE above, who is the original author of this note. I agree with the documented assessment and plan, with the following changes: none 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, prostate ca with surgery, cataract removed right eye slight one in left eye, arthritis, sleep apnea with cpap History of Any Multi-Drug Resistant Organisms: None Reported Past Surgical History: Prostate Surgery, Tonsillectomy Additional Past Surgical History / Comment(s): tumor removal right hip, back surgery Past Anesthesia/Blood Transfusion Reactions: No Reported Reaction Past Psychological History: No Psychological Hx Reported Smoking Status: Former smoker Past Alcohol Use History: Occasional Past Drug Use History: None Reported - Past Family History Father Family Medical History: Coronary Artery Disease (CAD), Myocardial Infarction ([place]) Additional Family Medical History / Comment(s): in from a heart attack, valve replacement Mother Family Medical History: No Reported History Medications and Allergies Home Medications Medication Instructions Recorded Confirmed Type Chlorthalidone 12.5 mg PO DAILY 02/01/14 12/27/21 History Dabigatran [Pradaxa] 150 mg PO BID 02/01/14 12/27/21 History glipiZIDE [Glucotrol] 20 mg PO BID 02/01/14 12/27/21 History lisinopriL 40 mg PO BID 02/01/14 12/27/21 History metFORMIN HCL [Glucophage] 1,000 mg PO BID 02/01/14 12/27/21 History Aspirin 81 mg PO HS 05/03/15 12/27/21 History Cholecalciferol [Vitamin D3 (10 10 mcg PO DAILY 05/03/15 12/27/21 History Mcg = 400 Iu)] Docusate Sodium [Dok] 100 mg PO DAILY 05/03/15 12/27/21 History [place]-3 Fatty Acids/Fish Oil [Fish 1 cap PO DAILY 05/03/15 12/27/21 History Oil 1,000 mg Softgel] Potassium 99 mg PO DAILY 05/03/15 12/27/21 History Insulin Glargine,Hum.rec.anlog 70 unit SQ HS 03/30/19 12/27/21 History [Lantus Solostar Pen] Magnesium Oxide [Montemayor] 500 mg PO DAILY 03/30/19 12/27/21 History Sotalol [Betapace] 120 mg PO BID 03/30/19 12/27/21 History Alogliptin Benzoate [Alogliptin] 25 mg PO DAILY 05/19/20 12/27/21 History Gabapentin [Neurontin] 600 mg PO TID 05/19/20 12/27/21 History Rosuvastatin Calcium [Crestor] 20 mg PO HS 05/19/20 12/27/21 History dilTIAZem HCL [dilTIAZem HCL 24Hr 120 mg PO DAILY 05/19/20 12/27/21 History ER (Xr)] Ascorbic Acid [Vitamin C] 1,000 mg PO DAILY 12/27/21 12/27/21 History EPINEPHrine (Auto Inject) [Epipen] 0.3 mg IM ONCE PRN 12/27/21 12/27/21 History Lidocaine 5% Patch [Lidoderm 5% 1 patch TRANSDERM DAILY 12/27/21 12/27/21 History Patch] Multivit-Min/FA/Lycopen/Lutein 1 tab PO DAILY 12/27/21 12/27/21 History [Centrum Silver Men Tablet] Psyllium Husk [Metamucil] 0.8 gm PO DAILY 12/27/21 12/27/21 History hydrALAZINE HCL [Apresoline] 50 mg PO TID 12/27/21 12/27/21 History Allergies Allergy/AdvReac Type Severity Reaction Status Date / Time bee venom protein (honey bee) Allergy Anaphylaxis Verified 12/27/21 03:10 Physical Exam Vitals: Vital Signs Temp Pulse Resp BP Pulse Ox 12/27/21 07:59 70 15 178/80 97 12/27/21 05:10 61 18 169/89 96 12/27/21 03:04 97.6 F 46 L 20 168/81 97 Intake and Output 12/26/21 12/27/21 12/27/21 22:59 06:59 14:59 Other: Weight 95.254 kg Results CBC & Chem 7: 12/27/21 03:15 12/27/21 03:15 Labs: Abnormal Lab Results - Last 24 Hours (Table) 12/27/21 12/27/21 12/27/21 Range/Units 03:15 03:15 03:15 WBC 14.3 H (3.8-10.6) k/uL Neutrophils # 11.3 H (1.3-7.7) k/uL APTT 39.5 H (22.0-30.0) sec Sodium 136 L (137-145) mmol/L Creatinine 0.59 L (0.66-1.25) mg/dL POC Glucose (mg/dL) (70-110) mg/dL 12/27/21 Range/Units 05:08 WBC (3.8-10.6) k/uL Neutrophils # (1.3-7.7) k/uL APTT (22.0-30.0) sec Sodium (137-145) mmol/L Creatinine (0.66-1.25) mg/dL POC Glucose (mg/dL) 186 H (70-110) mg/dL
[2021-12-27] MEDS ORDERED: DOCUSATE 100 MG CAP PO SCH (09:00)
[2021-12-27] MEDS ORDERED: lisinopriL 20 MG TAB PO SCH (09:00)
[2021-12-27] MEDS ORDERED: MULTIVITAMINS, THERA 1 EACH TAB PO SCH (09:00)
[2021-12-27] MEDS ORDERED: DILTIAZEM CD 120 MG CAP.ER.24H PO SCH (09:00)
[2021-12-27] MEDS ORDERED: SOTALOL 120 MG TAB PO SCH (09:00)
[2021-12-27] MEDS ORDERED: CHLORTHALIDONE 25 MG TAB PO SCH (09:00)
[2021-12-27] MEDS ORDERED: NON FORMULARY DRUG (Omega-3 Fatty Acids/Fish Oil [Fish Oil 1,000 Mg Softgel] 1 EACH Capsul PO SCH (09:00)
[2021-12-27] MEDS ORDERED: DABIGATRAN 150 MG CAP PO SCH (09:00)
[2021-12-27] MEDS ORDERED: hydrALAZINE HCL 50 MG TAB PO SCH (09:00)
[2021-12-27] MEDS ORDERED: ASCORBIC ACID 500 MG TAB PO SCH (09:00)
[2021-12-27] MEDS ORDERED: MAGNESIUM OXIDE 400 MG TAB PO SCH (09:00)
[2021-12-27] MEDS ORDERED: CHOLECALCIFEROL 10 MCG (400 IU) TABLET PO SCH (09:00)
[2021-12-27] MEDS ORDERED: GABAPENTIN 300 MG CAP PO SCH (09:00)
[2021-12-27] MEDS ORDERED: AMINOPHYLLINE 500 MG/20 ML VIAL IV PRN (09:08)
[2021-12-27] MEDS ORDERED: REGADENOSON 0.4 MG/5 ML SYRINGE IV PRN (09:08)
[2021-12-27] MEDS ORDERED: CAFFEINE CITRATE 60 MG/3 ML VIAL IV PRN (09:08)
--- NOTE | 2021-12-27 10:02 | P.CRDCN ---
History of Present Illness History of present illness: HISTORY OF PRESENTING ILLNESS This is a pleasant 76-year-old male past medical history significant for paroxysmal atrial fibrillation on Pradaxa, hypertension, type 2 diabetes, hyperlipidemia, obstructive sleep apnea, prostate cancer with prior surgery, right hip surgery, former smoker, family history of coronary disease. We have been asked to see in consultation for syncope. Patient follows with a hospitality coordinator at [facility] in [place] and his [employer] is in [place]. Patient presents to the ER with syncopal episode at home. He states that he remembers taking the dog out, after letting the dog back inside, he went to the bathroom , sat down on the toilet and the next thing he remembers is waking up with everyone around him and EMS was there. He does recall the episode, he den ies any symptoms of chest pain, lightheadedness, palpitations, shortness of breath dizziness, pain, nausea, vomiting, weakness, numbness, tingling, headache. He does not recall this happening to him before. Overall he is feeling well, just endorses feeling tired. Per patient's he was diaphoretic and making incomprehensible noises/sounds. She could not get him to wake up/respond and EMS was called. Patient seen and examined the emergency department, he denies any symptoms at this time. No chest pain, shortness of breath, lightheadedness, dizziness. He denies any history of CAD, CA, stroke. He states that he has had workup with his hospitality coordinator in terms of an echo, event monitor and stress testing with no acute findings that he is aware of. He is not sure when his recent stress test was. He denies any current tobacco use. Family history includes father had an CA in his 60s. Patient denies any change in his medication. He states he has been on sotalol for 40 years. He is also been taking lisinopril 40 mg twice a day for numerous years as well DIAGNOSTICS EKG reveals sinus bradycardia, first degree AV block, QTc 433, T wave inversion in V2-V3, III. Telemetry tracings indicate sinus mechanism at bedside, HR 60s Chest xray no acute cardiopulmonary process Brain CT revealed no acute intracranial abnormality Laboratory reviewed, troponin negative 2, WBC 14.3, hemoglobin 13.9, platelets 181, sodium 136, potassium 4.6, BUN 20%, and 0.5, magnesium 2.2, proBNP 137 Most recent echocardiogram on file 05/2020 revealed an EF of 5055 percent, mild aortic regurgitation, mild mitral and tricuspid regurgitation Current home medications include lisinopril 40 mg twice a day, hydralazine 50 mg 3 times a day, Cardizem 120 mg daily, sotalol 120 mg twice a day, Ranexa 150 mg twice a day, rosuvastatin 20 mg nightly REVIEW OF SYSTEMS At the time of my exam: CONSTITUTIONAL: Denies fever or chills. +Syncopal episode CARDIOVASCULAR: Denies chest pain, shortness of breath, orthopnea, PND or palpitations. RESPIRATORY: Denies cough. GASTROINTESTINAL: Denies abdominal pain, diarrhea, constipation, nausea or vomiting. MUSCULOSKELETAL: Denies myalgias. NEUROLOGIC: Denies numbness, tingling, headache or weakness. ENDOCRINE: Denies fatigue, weight change, polydipsia or polyurina. GENITOURINARY: Denies burning, hematuria or urgency with micturation. HEMATOLOGIC: Denies history of anemia or bleeding. PHYSICAL EXAMINATION Blood pressure 182/91, heart rate 59, afebrile, oxygen saturations 96% CONSTITUTIONAL: No apparent distress. HEENT: Head is normocephalic. Pupils are equal, round. Sclerae anicteric. Mucous membranes of the mouth are moist. No JVD. No carotid bruit. CHEST EXAMINATION: Lungs are clear to auscultation. No chest wall tenderness is noted on palpation or with deep breathing. HEART EXAMINATION: Regular rate and rhythm. S1, S2 heard. No murmurs, gallops or rub. ABDOMEN: Soft, nontender. Positive bowel sounds. EXTREMITIES: 2+ peripheral pulses, no lower extremity edema and no calf tenderness. SKIN: warm, dry NEUROLOGIC EXAMINATION: Patient is awake, alert and oriented x3. ASSESSMENT Syncopal episode, rule out cardiac etiology, possibly vasovagal Paroxysmal atrial fibrillation on Pradaxa Hypertension Type 2 diabetes Hyperlipidemia Obstructive sleep apnea History of prostate cancer with prior surgery History of tobacco use Family history of coronary disease PLAN An acute coronary event has been ruled out with no EKG evidence of ischemia and negative cardiac enzymes. Obtain 2D echocardiogram and doppler study to assess cardiac structure and function. Perform Lexiscan stress test to assess for stress induced cardiac ischemia. If abnormal will consider coronary angiography. If echocardiogram with no acute findings and stress test is negative, no further inpatient workup from a cardiology perspective, recommend follow up outpatient with his hospitality coordinator and management architect in [facility] Thank you kindly for this consultation. Nurse practitioner note has been reviewed by physician. Signing provider agrees with the documented findings, assessment, and plan of care. 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, prostate ca with surgery, cataract removed right eye slight one in left eye, arthritis, sleep apnea with cpap History of Any Multi-Drug Resistant Organisms: None Reported Past Surgical History: Prostate Surgery, Tonsillectomy Additional Past Surgical History / Comment(s): tumor removal right hip, back surgery Past Anesthesia/Blood Transfusion Reactions: No Reported Reaction Past Psychological History: No Psychological Hx Reported Smoking Status: Former smoker Past Alcohol Use History: Occasional Past Drug Use History: None Reported - Past Family History Father Family Medical History: Coronary Artery Disease (CAD), Myocardial Infarction ([place]) Additional Family Medical History / Comment(s): in from a heart attack, valve replacement Mother Family Medical History: No Reported History Medications and Allergies Home Medications Medication Instructions Recorded Confirmed Type Chlorthalidone 12.5 mg PO DAILY 02/01/14 12/27/21 History Dabigatran [Pradaxa] 150 mg PO BID 02/01/14 12/27/21 History glipiZIDE [Glucotrol] 20 mg PO BID 02/01/14 12/27/21 History lisinopriL 40 mg PO BID 02/01/14 12/27/21 History metFORMIN HCL [Glucophage] 1,000 mg PO BID 02/01/14 12/27/21 History Aspirin 81 mg PO HS 05/03/15 12/27/21 History Cholecalciferol [Vitamin D3 (10 10 mcg PO DAILY 05/03/15 12/27/21 History Mcg = 400 Iu)] Docusate Sodium [Dok] 100 mg PO DAILY 05/03/15 12/27/21 History [place]-3 Fatty Acids/Fish Oil [Fish 1 cap PO DAILY 05/03/15 12/27/21 History Oil 1,000 mg Softgel] Potassium 99 mg PO DAILY 05/03/15 12/27/21 History Insulin Glargine,Hum.rec.anlog 70 unit SQ HS 03/30/19 12/27/21 History [Lantus Solostar Pen] Magnesium Oxide [Montemayor] 500 mg PO DAILY 03/30/19 12/27/21 History Sotalol [Betapace] 120 mg PO BID 03/30/19 12/27/21 History Alogliptin Benzoate [Alogliptin] 25 mg PO DAILY 05/19/20 12/27/21 History Gabapentin [Neurontin] 600 mg PO TID 05/19/20 12/27/21 History Rosuvastatin Calcium [Crestor] 20 mg PO HS 05/19/20 12/27/21 History dilTIAZem HCL [dilTIAZem HCL 24Hr 120 mg PO DAILY 05/19/20 12/27/21 History ER (Xr)] Ascorbic Acid [Vitamin C] 1,000 mg PO DAILY 12/27/21 12/27/21 History EPINEPHrine (Auto Inject) [Epipen] 0.3 mg IM ONCE PRN 12/27/21 12/27/21 History Lidocaine 5% Patch [Lidoderm] 1 patch TRANSDERM DAILY 12/27/21 12/27/21 History Multivit-Min/FA/Lycopen/Lutein 1 tab PO DAILY 12/27/21 12/27/21 History [Centrum Silver Men Tablet] Psyllium Husk [Metamucil] 0.8 gm PO DAILY 12/27/21 12/27/21 History hydrALAZINE HCL [Apresoline] 50 mg PO TID 12/27/21 12/27/21 History Allergies Allergy/AdvReac Type Severity Reaction Status Date / Time bee venom protein (honey bee) Allergy Anaphylaxis Verified 12/27/21 03:10 Physical Exam Vitals: Vital Signs Temp Pulse Resp BP Pulse Ox 12/27/21 07:59 70 15 178/80 97 12/27/21 05:10 61 18 169/89 96 12/27/21 03:04 97.6 F 46 L 20 168/81 97 Intake and Output 12/26/21 12/27/21 12/27/21 22:59 06:59 14:59 Other: Weight 95.254 kg Results 12/27/21 03:15 07/18/22 03:15 Cardiac Enzymes 12/27/21 12/27/21 Range/Units 03:15 03:15 AST 55 (17-59) U/L Troponin I <0.012 (0.000-0.034) ng/mL Coagulation 12/27/21 Range/Units 03:15 PT 11.9 (9.0-12.0) sec APTT 39.5 H (22.0-30.0) sec CBC 12/27/21 Range/Units 03:15 WBC 14.3 H (3.8-10.6) k/uL RBC 4.64 (4.30-5.90) m/uL Hgb 13.9 (13.0-17.5) gm/dL Hct 41.6 (39.0-53.0) % Plt Count 181 (150-450) k/uL Comprehensive Metabolic Panel 12/27/21 Range/Units 03:15 Sodium 136 L (137-145) mmol/L Potassium 4.6 (3.5-5.1) mmol/L Chloride 105 (98-107) mmol/L Carbon Dioxide 24 (22-30) mmol/L BUN 20 (9-20) mg/dL Creatinine 0.59 L (0.66-1.25) mg/dL Glucose 97 (74-99) mg/dL Calcium 9.4 (8.4-10.2) mg/dL AST 55 (17-59) U/L ALT 33 (4-49) U/L Alkaline Phosphatase 43 (38-126) U/L Total Protein 6.7 (6.3-8.2) g/dL Albumin 4.4 (3.5-5.0) g/dL Current Medications Generic Name Dose Route Start Last Admin Trade Name Freq PRN Reason Stop Dose Admin Ascorbic Acid 1,000 mg 12/27/21 09:00 Ascorbic Acid 500 Mg Tab PO DAILY [facility] Aspirin 81 mg 12/27/21 21:00 Aspirin 81 Mg PO HS [facility] Chlorthalidone 12.5 mg 12/27/21 09:00 Chlorthalidone 25 Mg Tab PO DAILY [facility] Cholecalciferol 10 mcg 12/27/21 09:00 Cholecalciferol 10 Mcg (400 Iu) Tablet PO DAILY [facility] Dabigatran 150 mg 12/27/21 09:00 Dabigatran 150 Mg Cap PO BID [facility] Protocol Diltiazem HCl 120 mg 12/27/21 09:00 Diltiazem Cd 120 Mg Cap.Er.24h PO DAILY [facility] Docusate Sodium 100 mg 12/27/21 09:00 Docusate 100 Mg Cap PO DAILY [facility] Gabapentin 600 mg 12/27/21 09:00 Gabapentin 300 Mg Cap PO TID [facility] Hydralazine HCl 50 mg 12/27/21 09:00 Hydralazine Hcl 50 Mg Tab PO TID [facility] Sodium Chloride 1,000 mls @ 130 mls/hr 12/27/21 06:15 12/27/21 07:59 Saline 0.9% IV 130 mls/hr .[id number] [facility] Administration Insulin Aspart 0 unit 12/27/21 08:45 Insulin Aspart (Novolog) 100 Unit/Ml Vial SQ ACHS [facility] Protocol Lisinopril 40 mg 12/27/21 09:00 Lisinopril 20 Mg Tab PO BID [facility] Magnesium Oxide 400 mg 12/27/21 09:00 Magnesium Oxide 400 Mg Tab PO DAILY [facility] Morphine Sulfate 4 mg 12/27/21 06:11 Morphine Sulfate 4 Mg/Ml Syringe IV Q4HR PRN Severe Pain Multivitamins 1 each 12/27/21 09:00 Multivitamins, Thera 1 Each Tab PO DAILY [facility] Naloxone HCl 0.2 mg 12/27/21 06:11 Naloxone 0.4 Mg/Ml 1 Ml Vial IV Q2M PRN Opioid Reversal Non-Formulary Medication 70 unit 12/27/21 08:45 Insulin Glargine,Hum.Rec.Anlog [Lantus Solostar Pen] SQ DIRECTED [facility] Ondansetron HCl 4 mg 12/27/21 06:11 Ondansetron 4 Mg/2 Ml Vial IVP Q8HR PRN Nausea And Vomiting Intake and Output 12/26/21 12/27/21 12/27/21 22:59 06:59 14:59 Other: Weight 95.254 kg 12/27/21 03:15 12/27/21 03:15
--- NOTE | 2021-12-27 10:26 | P.CNNES ---
History of Present Illness Consult date: 12/27/21 Requesting physician: Bill Lovell Reason for Consult: syncope History of Present Illness: This is 76-year-old with medical history of paroxysmal atrial fibrillation on Pradaxa, diabetes mellitus type 2, diabetic neuropathy, hypertension, hyperlipidemia who presented emergency department because of syncopal episode. Some of the history is obtained from the patient primary team. It seems that the patient remembers getting up to let his dog out and then going to the restroom and was sitting down on the toilet and then next thing he remembers is having family members around him. Patient denies of any chest pain, lig htheadedness or palpitation, visual diturbance prior to the episode. He denies of any fevers recently or being sick. The was awoken by the dogs barking. When she went to check her was in the bathroom she found him sitting on the toilet slumped over against the wall and was extremely diaphoretic making old sort of incomprehensible noises. Patient was not responding to her. As a result she called her other family members and EMS. Patient was still unresponsive when EMS arrived to the scene Patient denies any prior episode of loss of consciousness or history of seizures. He denies of any headaches, focal deficits, new numbness. Some other workup in our facility during this hospital visit consisted of: Initial blood pressure is 160/81, heart rate of 46, respiratory of 20, temperature of 97.6 Fahrenheit oral and pulse ox of 97% room air. Initial white blood cells 14.3 and it's the slightly neutrophilic otherwise rest of CBC with differential is unremarkable Plasma lactic acid vein is 1.3 which is normal, initial serum, glucose is 97 and POC glucose is 106. Tone is 136. Otherwise rest of the chemistry panel is unremarkable. Calcium is 9.4, phosphorus is 4.4 and magnesium is 2.2. CT of the head is reported as no acute intracranial process. Nonspecific white matter changes, likely secondary due to chronic small vessel ischemic disease. Review of Systems Review of system: The 12 point system was reviewed and apparent positive and negative per HPI. 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, prostate ca with surgery, cataract removed right eye slight one in left eye, arthritis, sleep apnea with cpap History of Any Multi-Drug Resistant Organisms: None Reported Past Surgical History: Prostate Surgery, Tonsillectomy Additional Past Surgical History / Comment(s): tumor removal right hip, back surgery Past Anesthesia/Blood Transfusion Reactions: No Reported Reaction Past Psychological History: No Psychological Hx Reported Smoking Status: Former smoker Past Alcohol Use History: Occasional Past Drug Use History: None Reported - Past Family History Father Family Medical History: Coronary Artery Disease (CAD), Myocardial Infarction (MO) Additional Family Medical History / Comment(s): in from a heart attack, valve replacement Mother Family Medical History: No Reported History Medications and Allergies Home Medications Medication Instructions Recorded Confirmed Type Chlorthalidone 12.5 mg PO DAILY 02/01/14 12/27/21 History Dabigatran [Pradaxa] 150 mg PO BID 02/01/14 12/27/21 History glipiZIDE [Glucotrol] 20 mg PO BID 02/01/14 12/27/21 History lisinopriL 40 mg PO BID 02/01/14 12/27/21 History metFORMIN HCL [Glucophage] 1,000 mg PO BID 02/01/14 12/27/21 History Aspirin 81 mg PO HS 05/03/15 12/27/21 History Cholecalciferol [Vitamin D3 (10 10 mcg PO DAILY 05/03/15 12/27/21 History Mcg = 400 Iu)] Docusate Sodium [Dok] 100 mg PO DAILY 05/03/15 12/27/21 History [place]-3 Fatty Acids/Fish Oil [Fish 1 cap PO DAILY 05/03/15 12/27/21 History Oil 1,000 mg Softgel] Potassium 99 mg PO DAILY 05/03/15 12/27/21 History Insulin Glargine,Hum.rec.anlog 70 unit SQ HS 03/30/19 12/27/21 History [Lantus Solostar Pen] Magnesium Oxide [Montemayor] 500 mg PO DAILY 03/30/19 12/27/21 History Sotalol [Betapace] 120 mg PO BID 03/30/19 12/27/21 History Alogliptin Benzoate [Alogliptin] 25 mg PO DAILY 05/19/20 12/27/21 History Gabapentin [Neurontin] 600 mg PO TID 05/19/20 12/27/21 History Rosuvastatin Calcium [Crestor] 20 mg PO HS 05/19/20 12/27/21 History dilTIAZem HCL [dilTIAZem HCL 24Hr 120 mg PO DAILY 05/19/20 12/27/21 History ER (Xr)] Ascorbic Acid [Vitamin C] 1,000 mg PO DAILY 12/27/21 12/27/21 History EPINEPHrine (Auto Inject) [Epipen] 0.3 mg IM ONCE PRN 12/27/21 12/27/21 History Lidocaine 5% Patch [Lidoderm] 1 patch TRANSDERM DAILY 12/27/21 12/27/21 History Multivit-Min/FA/Lycopen/Lutein 1 tab PO DAILY 12/27/21 12/27/21 History [Centrum Silver Men Tablet] Psyllium Husk [Metamucil] 0.8 gm PO DAILY 12/27/21 12/27/21 History hydrALAZINE HCL [Apresoline] 50 mg PO TID 12/27/21 12/27/21 History Allergies Allergy/AdvReac Type Severity Reaction Status Date / Time bee venom protein (honey bee) Allergy Anaphylaxis Verified 12/27/21 03:10 Physical Examination - Vital Signs Vital Signs: Vital Signs Temp Pulse Resp BP Pulse Ox 12/27/21 07:59 70 15 178/80 97 12/27/21 05:10 61 18 169/89 96 12/27/21 03:04 97.6 F 46 L 20 168/81 97 Intake and Output 12/26/21 12/27/21 12/27/21 22:59 06:59 14:59 Other: Weight 95.254 kg GENERAL: The patient is lying in bed and is not in acute distress. CHEST: The heart rate is regular rate rhythm. No murmurs to auscultation. LUNG: Clear to auscultation bilaterally no wheezing noted throughout. Not labored breathing. ABDOMEN/GI: Bowel sounds present in all 4 quadrants. No tenderness to palpation throughout. NEUROLOGICAL: Higher mental function: The patient is awake, alert, oriented to self, place and time. Patient is following commands. No aphasia and no neglect. Cranial nerves: The pupils are round, equal and reactive to light and accommodation. Visual schuster are full to confrontation throughout. Extraocular movement is intact no nystagmus is noted. Facial sensation is normal to touch throughout. The facial strength is normal throughout. Hearing is normal bilaterally to hand rub. Tongue is midline and moved [id number] without any difficulty. No dysarthria is noted. Shoulder shrug is normal bilaterally. Motor: The strength is 5 over 5 throughout. Normal tone and bulk. Cerebellum: Normal finger to nose bilaterally. Sensation: Sensation is normal to touch throughout. Reflexes (right/left): 1+ throughout. Plantars are mute bilaterally. Results - Laboratory Findings CBC and BMP: 12/27/21 03:15 12/27/21 03:15 Abnormal Lab Findings: Abnormal Labs 12/27/21 12/27/21 12/27/21 03:15 03:15 03:15 WBC 14.3 H Neutrophils # 11.3 H APTT 39.5 H Sodium 136 L Creatinine 0.59 L POC Glucose (mg/dL) 12/27/21 12/27/21 05:08 08:28 WBC Neutrophils # APTT Sodium Creatinine POC Glucose (mg/dL) 186 H 176 H Assessment and Plan Assessment: Syncopal episode and seems likely vasovagal Bradycardia on presentation (heart rate of 46) Paroxysmal atrial fibrillation on Pradaxa Diabetes mellitus type 2 Diabetic neuropathy Hypertension Hyperlipidemia Plan: Routine EEG is ordered by the primary team. If EEG shows any epileptiform di scharges or seizure then we'll start the patient on antiepileptic drugs. Orthostatic vitals was ordered and is pending Every 4 hours neuro checks 2-D echo was ordered and is pending Cardiology is consulted We'll defer the rest of the medical management to primary team The plan was discussed with the patient and primary team Thank you for the consultation. Ross Armstrong M.D. Neuro-hospitalist Time with Patient: Greater than 30
--- NOTE | 2021-12-27 11:45 | CA ---
Lexiscan Nuclear Stress Test Report Name: Edin Fay Exam Date: 12/27/2021 10:52 Exam Location: [facility] Stress Ht (in): 70 Wt (lb): 210 BSA: 2.13 Ordering Phys: Claudia Whitten Referring Phys: JUAN DANIEL, Technologist: Dre Hendricks Age: 76 Gender: M : 1945 Procedure CPT: Indications: Reflex order-Stress test ICD-10 Codes: Patient History: Syncope Medications: Meds past 24 hrs: Pretest Chest Pain: STRESS TEST Lexiscan Protocol Exercise Duration (min:sec): 02:[address] Depressions (mm): Angina Score: Murphy Score: Resting HR (bpm): 58 Peak HR (bpm): 79 Resting BP (mmHg): 160 / 79 Peak BP (mmHg): 181 / 69 MPHR: 146 Target HR: 124 % MPHR: 54 METS: 1.0 Total Dose: Peak Dose: Atropine: Double Product: 38324 BP Response: Stress Termination: Infusion Complete Stress Symptoms: Shortness of breath which resolved quickly Stress Summary: ECG ANALYSIS Resting ECG: Stress ECG: CONCLUSIONS At baseline EKG showed normal sinus rhythm, normal axis, no significant ST or T wave abnormalities. Patient recieved IV infusion of Lexiscan 0.4mg and at peak infusion EKG showed no significant change from baseline. Conclusions: 1. Normal EKG response to Lexiscan infusion 2. Nuclear imaging to be reported separately. Dr. Ricky Hutson DO (Electronically Signed) Final Date: 27 December 2021 11:43
[2021-12-27] MEDS: INSULIN ASPART (NovoLOG) 100 UNIT/ML VIAL SQ SCH ×2 (12:31→14:41)
--- NOTE | 2021-12-27 13:35 | CA ---
Transthoracic Echo Report Name: Edin Fay Age: 76 Gender: M : 1945 Exam Date: 12/27/2021 11:15 Exam Location: [facility] Echo Ht (in): 70 Wt (lb): 210 Ordering Physician: Bill Lovell Attending/Referring Phys: Computer Sciences Professor Isabelle Johnson RDCS Procedure CPT: Indications: Syncope Cardiac Hx: Technical Quality: Fair Contrast 1: Total Dose (mL): Contrast 2: Total Dose (mL): MEASUREMENTS (Male / Female) Normal Values 2D ECHO LV Diastolic Diameter PLAX 4.9 cm 4.2 - 5.9 / 3.9 - 5.3 cm LV Systolic Diameter PLAX 3.9 cm IVS Diastolic Thickness 1.4 cm 0.6 - 1.0 / 0.6 - 0.9 cm LVPW Diastolic Thickness 1.3 cm 0.6 - 1.0 / 0.6 - 0.9 cm LV Relative Wall Thickness 0.5 RV Internal Dim ED PLAX 3.1 cm LA Systolic Diameter LX 4.4 cm 3.0 - 4.0 / 2.7 - 3.8 cm LA Volume 67.6 cm??? 18 - 58 / 22 - 52 cm??? M-MODE Aortic Root Diameter MM 3.4 cm MV E Point Septal Separation 0.4 cm AV Cusp Separation MM 2.0 cm DOPPLER AV Peak Velocity 157.7 cm/s AV Peak Gradient 9.9 mmHg MV Area PHT 3.2 cm??? Mitral E Point Velocity 81.0 cm/s Mitral A Point Velocity 89.6 cm/s Mitral E to A Ratio 0.9 MV Deceleration Time 234.0 ms MV E' Velocity 6.1 cm/s Mitral E to MV E' Ratio 13.3 FINDINGS Left Ventricle Left ventricular ejection fraction is estimated at 55-60 %. Left ventricular cavity size normal. Mild concentric left ventricular hypertrophy. Right Ventricle Normal right ventricular size and function. Right Atrium Normal right atrial size. Left Atrium Mildly increased left atrial diameter. Mildly increased left atrial volume. Mitral Valve Structurally normal mitral valve. No mitral stenosis, regurgitation or prolapse. Aortic Valve Trileaflet aortic valve. Trace to mild aortic regurgitation. Tricuspid Valve Structurally normal tricuspid valve. No tricuspid stenosis, regurgitation or prolapse. Pulmonic Valve Structurally normal pulmonic valve. No pulmonic stenosis. Trace pulmonic regurgitation. Pericardium Normal pericardium. No pericardial effusion. Aorta Normal size aortic root and proximal ascending aorta. CONCLUSIONS Left ventricular ejection fraction 55-60% Mild LVH Mild aortic regurgitation No pericardial effusion Previewed by: Dr. Ricky Hutson DO (Electronically Signed) Final Date: 27 December 2021 13:35
[2021-12-27 13:50] LABS: Glucose,Whole Blood 159 mg/dL (70-110)
--- NOTE | 2021-12-27 14:19 | NM ---
EXAMINATION TYPE: NM stress lexiscan cardiolite DATE OF EXAM: 12/27/2021 COMPARISON: NONE HISTORY: Syncope TECHNIQUE: After the intravenous administration of 10.3 mCi Tc 99m Sestamibi - Cardiolite resting SP ECT images acquired 50 minutes post injection. The patient received 0.4mg Lexiscan, 24.3 mCi Tc 99m Sestamibi - Stress images obtained [address] injection FINDINGS: Review of stress and rest SPECT images demonstrates no distinct perfusion abnormality. Gated analysi s shows normal wall motion with an estimated left ventricular ejection fraction of 63 %. IMPRESSION: No scintigraphic evidence for reversible ischemia.
--- NOTE | 2021-12-27 14:51 | P.DS ---
Providers Date of admission: 12/27/21 06:11 Expected date of discharge: 12/27/21 Attending physician: Cindi Feliciano MD Consults: 12/27/21 06:11 Consult Physician Routine Consulting Provider: Janna Galvin Consult Reason/Comments: syncop Do you want consulting provider notified?: Yes 12/27/21 08:31 Consult Physician Routine Consulting Provider: Ross Armstrong Consult Reason/Comments: syncope, likely vasal vagal but r/o seizure Do you want consulting provider notified?: Yes Primary care physician: Albert Fraire [facility] Course: Discharge Diagnosis: Syncopal episode, believed to be vasovagal episode. Recommend outpatient follow-up with your window caser and geodetic surveyor technologist, Dr. Ayaka [facility] with [facility]. Asymptomatic Bradycardia. Patient instructed [facility] to monitor heart rate. Patient was instructed to check his heart rate every morning and every night before taking his sotalol and if his heart rate is less than 60 bpm, he should hold off on taking this medication and call his window caser for further instructions regarding medication management. Paroxysmal Atrial fibrillation. Continue anticoagulation with Pradaxa Hypertension. Monitor vital signs and continue daily medication regimen with lisinopril, [place], hydralazine, and sotalol. Hyperlipidemia. Continue daily medication regimen with rosuvastatin. Hospital Course: Patient is a very pleasant 76-year-old male with a past medical history of hypertension, hyperlipidemia, paroxysmal atrial fibrillation on anticoagulation with Pradaxa, insulin-dependent diabetes mellitus type 2, chronic back pain, and diabetic neuropathy to bilateral lower extremities. Patient presented to the emergency department secondary to syncopal episode. Patient reports he remembers getting up to let his dog out, he remembers letting his dog in and then going to the restroom and sitting down on the toilet. Patient states the next thing he remembers is hearing voices of his [id number] and finally awakening and EMS rig. He denies remembering feeling any headache, lightheadedness, dizziness, chest pain, palpitations, shortness of breath, numbness, tingling, or weakness prior to loss of consciousness. No evidence that patient follow or hit head and denies any recent head injuries. Patient's at bedside states that she was awoken by their dog barking and trying to get her attention. She states the dog was outside of the bathroom door and when she went in she found her sitting on the toilet slumped over against the wall, she reports he was extremely diaphoretic and making all sorts of incomprehensible noises/sounds. She states that she made multiple attempts at trying to communicate with him but he did not respond or seem to understand anything she was saying. She reports that she called her sister and [id number] that live 2 doors down and EMS for assistance. She states when EMS took her he was still unresponsive and when she was able to come back and see him in the emergency department he was back to his old self but did not remember anything that happened. Patient currently denies having any headache, lightheadedness, dizziness, chest pain, palpitations, shortness of breath, abdominal pain, nausea, vomiting, or experiencing any new or changes in numbness/tingling/weakness in his extremities. As stated above patient does have diabetic neuropathy with numbness and tingling in bilateral feet at baseline. Patient underwent full evaluation in the emergency department. EKG was completed revealing sinus bradycardia at 45 bpm with a first-degree AV block with FL interval 222 ms and T-wave inversion in leads V1 through V3. CT brain negative for acute intercranial process. POC glucose upon arrival to facility was 106. CBC revealing elevated WBC count of 14.3, CMP unremarkable, lactic acid normal findings at 1.3 and troponin negative at less than 0.012. Patient admitted under our services with consultation to cardiology and neurology. Troponins trended and were negative at less than 0.012 2 draws. Patient underwent evaluation by window caser and neurologist. Echocardiogram revealing EF of 55-60% with mild LVH and mild aortic regurgitation. Lexiscan stress test negative showing no scintigraphic evidence for reversible ischemia. EEG reviewed by neurologist and reported to be normal. Patient reports no further complaints since awakening from syncopal episode. Syncopal episode believed to be a vasovagal response. Patient medically stable for discharge home with his at this time. Patient to follow up outpatient with his PCP in 1-2 days and [address] caser Dr. Ayaka Patiño at [facility] in 1 week. Physical exam: Vital signs reviewed and stable. General: Nontoxic, no distress and appears stated age. Derm: Skin warm and dry, normal coloration for ethnicity. Head: Atraumatic, normocephalic and symmetric. Eyes: EOMs intact, no lid lag, and anicteric sclera Mouth: no lip lesions, mucus membranes moist. No evidence of patient biting tongue or lip. Cardiovascular: regular rate and rhythm with normal S1S2, no murmur, positive posterior tibial pulses bilaterally, and cap refill < 2 seconds. Lungs: Respirations even, regular, and unlabored on room air. Lungs CTA bilaterally, no rhonchi, no rales, no wheezing, and no accessory muscle usage. Abdominal: Obese abdomen soft, nontender to palpation, no guarding, no appreciable organomegaly Ext: ROM intact. No gross muscle atrophy, no edema, no contractures. Bilateral lower extremity venous discoloration. Neuro: Speech clear, face symmetrical and CN II-XII grossly intact with no noted focal neuro deficits Psych: Alert and oriented to person, place, time, and situation. Appropriate and pleasant affect. A total of 35 minutes of time were spent preparing this complex discharge summary. Pt was discharged on 12/27/21 at 4:36 PM. I reviewed the documentation as provided by the BLAYNE above, who is the original author of this note. I agree with the documented assessment and plan, with the following changes: none Patient Condition at Discharge: Stable Plan - Discharge Summary Discharge Rx Participant: No New Discharge Prescriptions: Continue Chlorthalidone 12.5 mg PO DAILY metFORMIN HCL [Glucophage] 1,000 mg PO BID glipiZIDE [Glucotrol] 20 mg PO BID lisinopriL 40 mg PO BID Dabigatran [Pradaxa] 150 mg PO BID Potassium 99 mg PO DAILY [place]-3 Fatty Acids/Fish Oil [Fish Oil 1,000 mg Softgel] 1 cap PO DAILY Docusate Sodium [Dok] 100 mg PO DAILY Aspirin 81 mg PO HS Cholecalciferol [Vitamin D3 (10 Mcg = 400 Iu)] 10 mcg PO DAILY Insulin Glargine,Hum.rec.anlog [Lantus Solostar Pen] 70 unit SQ HS Magnesium Oxide [Montemayor] 500 mg PO DAILY Sotalol [Betapace] 120 mg PO BID dilTIAZem HCL [dilTIAZem HCL 24Hr ER (Xr)] 120 mg PO DAILY Rosuvastatin Calcium [Crestor] 20 mg PO HS Alogliptin Benzoate [Alogliptin] 25 mg PO DAILY Gabapentin [Neurontin] 600 mg PO TID Ascorbic Acid [Vitamin C] 1,000 mg PO DAILY Multivit-Min/FA/Lycopen/Lutein [Centrum Silver Men Tablet] 1 tab PO DAILY Lidocaine 5% Patch [Lidoderm 5% Patch] 1 patch TRANSDERM DAILY hydrALAZINE HCL [Apresoline] 50 mg PO TID Psyllium Husk [Metamucil] 0.8 gm PO DAILY EPINEPHrine (Auto Inject) [Epipen] 0.3 mg IM ONCE PRN PRN Reason: Anaphylaxis Discharge Medication List Chlorthalidone 12.5 mg PO DAILY 02/01/14 [History] Dabigatran [Pradaxa] 150 mg PO BID 02/01/14 [History] glipiZIDE [Glucotrol] 20 mg PO BID 02/01/14 [History] lisinopriL 40 mg PO BID 02/01/14 [History] metFORMIN HCL [Glucophage] 1,000 mg PO BID 02/01/14 [History] Aspirin 81 mg PO HS 05/03/15 [History] Cholecalciferol [Vitamin D3 (10 Mcg = 400 Iu)] 10 mcg PO DAILY 05/03/15 [History] Docusate Sodium [Dok] 100 mg PO DAILY 05/03/15 [History] [place]-3 Fatty Acids/Fish Oil [Fish Oil 1,000 mg Softgel] 1 cap PO DAILY 05/03/15 [History] Potassium 99 mg PO DAILY 05/03/15 [History] Insulin Glargine,Hum.rec.anlog [Lantus Solostar Pen] 70 unit SQ HS 03/30/19 [History] Magnesium Oxide [Montemayor] 500 mg PO DAILY 03/30/19 [History] Sotalol [Betapace] 120 mg PO BID 03/30/19 [History] Alogliptin Benzoate [Alogliptin] 25 mg PO DAILY 05/19/20 [History] Gabapentin [Neurontin] 600 mg PO TID 05/19/20 [History] Rosuvastatin Calcium [Crestor] 20 mg PO HS 05/19/20 [History] dilTIAZem HCL [dilTIAZem HCL 24Hr ER (Xr)] 120 mg PO DAILY 05/19/20 [History] Ascorbic Acid [Vitamin C] 1,000 mg PO DAILY 12/27/21 [History] EPINEPHrine (Auto Inject) [Epipen] 0.3 mg IM ONCE PRN 12/27/21 [History] Lidocaine 5% Patch [Lidoderm 5% Patch] 1 patch TRANSDERM DAILY 12/27/21 [History] Multivit-Min/FA/Lycopen/Lutein [Centrum Silver Men Tablet] 1 tab PO DAILY 12/27/21 [History] Psyllium Husk [Metamucil] 0.8 gm PO DAILY 12/27/21 [History] hydrALAZINE HCL [Apresoline] 50 mg PO TID 12/27/21 [History] Follow up Appointment(s)/Referral(s): Ricky Hutson DO [STAFF PHYSICIAN] - 1 Week Albert Kruger DO [Primary Care Provider] - 1-2 days [facility] [REFERRING] - 1 Week Activity/Diet/Wound Care/Special Instructions: Activity: As tolerated. Take breaks as needed. Diet: Heart healthy and carb consistent diet. Avoid salts, or foods with hidden salts such as canned or boxed foods and frozen dinners. Extra salt makes your heart work harder and traps the fluid in your body for longer. Special Instructions: Take all of your medications as directed and remember to keep all of your doctor's appointments and follow-up as needed. Syncopal episode believed to have resulted from vasovagal episode. Cardiac and neurological workup was negative. CT head, Echocardiogram, Lexiscan stress test, an EEG showed normal findings with no acute abnormalities. Recommend following up with your window caser and geodetic surveyor technologist Dr. Ayaka Patiño with [place] as well as your primary care doctor at [facility] and Dr. Kruger. Recommend obtaining a pulse ox from local drugstore to monitor your heart rate. It is advised that you check your heart rate every morning and every night before taking sotalol and if your heart rate is less than 60 bpm, you should hold off on taking this medication and call your window caser for further instructions regarding this medication management. Thank you for allowing us to participate in your care, it was truly a pleasure having you for our patient!!! And thank you for your service, it is always an honor to provide care for a !! Discharge Disposition: HOME SELF-CARE
[2021-12-27 16:59] VITALS: BP 164/80; PULSE 62; RESP 16
--- NOTE | 2021-12-27 18:45 | EEG ---
ELECTROENCEPHALOGRAM REPORT DATE OF SERVICE: 12/27/2021. CLINICAL HISTORY: This is a 76-year-old gentleman who presented to the emergency department because of a syncopal episode at home. The video EEG is obtained to evaluate for seizure epileptiform activity. RELEVANT MEDICATION: The patient is not on any antiepileptic drugs. EEG TYPE: A routine 21-channel EEG is performed with video using the 10/20 electrode placement system. DESCRIPTION: Wakefulness and drowsiness are obtained. During awake state the posterior- dominant rhythm consists of low to moderate voltage of 9 to 10 hertz activity. There is no physiological stage 2 sleep architecture. There is no focal slowing. Interictal and ictal is none. ACTIVATION PROCEDURE: Photic stimulation did not evoke a posterior driving response. There is no abnormality during the photic stimulation. Hyperventilation was not performed. CLINICAL INTERPRETATION: This is a normal routine EEG. There is no focal slowing, epileptiform discharge or seizure on the EEG. Clinical correlation is recommended. HERSON / CHRISTIAN: [id number] / [id number]
[2021-12-27] MEDS ORDERED: ASPIRIN 81 MG PO SCH (21:00)
[2021-12-27] MEDS ORDERED: INSULIN DETEMIR (LEVEMIR) 100 UNIT/ML SYR SQ SCH (21:00)
== END 2021-12-27 17:05 | disposition home or self-care (01) ==
LOC: EC 02:51 → 6NMEDSUR 06:11
PROVIDERS: ADMIT Internal Medicine; ATTEND Internal Medicine
DX: R55 Syncope and collapse (principal); R00.1 Bradycardia, unspecified; I48.0 Paroxysmal atrial fibrillation; I10 Essential (primary) hypertension; E78.5 Hyperlipidemia, unspecified; E11.40 Type 2 diabetes mellitus with diabetic neuropathy, unspecified; E11.649 Type 2 diabetes mellitus with hypoglycemia without coma; G89.29 Other chronic pain; M54.9 Dorsalgia, unspecified; I44.0 Atrioventricular block, first degree; D72.829 Elevated white blood cell count, unspecified; I35.1 Nonrheumatic aortic (valve) insufficiency; R61 Generalized hyperhidrosis; G47.33 Obstructive sleep apnea (adult) (pediatric); R53.83 Other fatigue; R53.1 Weakness; M25.551 Pain in right hip; E66.9 Obesity, unspecified; Z68.30 Body mass index [BMI] 30.0-30.9, adult; Z71.9 Counseling, unspecified; Z85.46 Personal history of malignant neoplasm of prostate; Z87.891 Personal history of nicotine dependence; Z79.01 Long term (current) use of anticoagulants; Z79.4 Long term (current) use of insulin; Z79.84 Long term (current) use of oral hypoglycemic drugs; Z79.899 Other long term (current) drug therapy; Z79.82 Long term (current) use of aspirin; Z91.030 Bee allergy status; Z82.49 Family history of ischemic heart disease and other diseases of the circulatory system
CPT/HCPCS: 96360; 96361; 99285; 36415; 95819; 93005; 93017; 93306; 84439; 83880; 80053; 84443; 83605; 83735; 84100; 84484; 85025; 85610; 85730; 71046; 70450; 78452; G0378; A9500; J2785

== ENCOUNTER → 2021-12-31 | Outpatient (CLI) | payer OTHER ==
--- NOTE | 2022-01-01 01:16 | MR ---
EXAMINATION TYPE: MR lumbar spine wo con DATE OF EXAM: 12/31/2021 COMPARISON: None HISTORY: Lower back pain, into buttocks x 5 years, history of surgery. Multiplanar multi echo imaging of the lumbar spine without contrast. There is a few millimeter anterior subluxation of L4 in relation L5. There is degenerative disc space narrowing throughout the lumbar spine with spurring of the endplates. There is small posterior disc bulging from L2 to L5. No compression fracture. No lumbar paraspinal mass. The lumbar neural foramina are fairly well maintained. There is hypertrophic facet arthropathy and some mild lateral recess lonnie nosis at L4-5. Sacroiliac joints are intact. IMPRESSION: Multilevel spondylotic changes. Mild degenerative first-degree L4-5 spondylolisthesis. No fracture. H ypertrophic facet arthropathy more noticeable at L4-5..
== END | disposition home or self-care (01) ==
LOC: RADMRIMAIN 19:30
DX: M43.16 Spondylolisthesis, lumbar region (principal); M47.896 Other spondylosis, lumbar region
CPT/HCPCS: 72148

== ENCOUNTER → 2022-02-24 | Outpatient (CLI) | payer MEDICARE ==
[2022-02-24 11:26] VITALS: BP 193/82; PULSE 55; RESP 18
--- NOTE | 2022-02-24 13:35 | P.PAINPG ---
PQRS Measure Charge Sheet Comment: HISTORY OF PRESENT ILLNESS: 76 yr old male w at side as a referral from the [facility] presents today w severe and chronic LBP secondary to DDD, spondylolisthesis and facet arthropathy without myelopathy for evaluation. Patient states his pain level is at 4/10 in intensity, constant,localized in the lower lumbar spine, in character w radiation towards the BL glutes. Pain is provoked with standing/walking for periods of 10 min or more. Pain is alleviated w PT in the past, medications (Neurontin, Tylenol), Lidoderm patches, topicals, home stretching regimen, repositioning and rest. 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 FH: Fa- CAD/ [place]/ at age 89. Mo- No Reported History. All: See list Meds: See list REVIEW OF ORGAN SYSTEMS: CONSTITUTIONAL: No fevers or chills. No recent weight loss. NEUROLOGICAL: + numbness and tingling along the distal extremities. No seizure disorders or headaches. MUSCULOSKELETAL: + pain PSYCHIATRIC: Denies current depression or suicidal thoughts. Physical Examinations : Constitutional : Cooperative , not in acute distress . Neurologic : Cranial nerve II to XII intact. No focal neurological deficits. Psychiatric : alert & oriented x 3. Matching mood & appropriate affect. Judgment & insight intact. Musculoskeletal : Cervical Spine Motor strength in the deltoid and biceps: Normal right side. Normal Left side Motor strength biceps and the wrist extensors: Normal right side . Normal left side Motor strength in the triceps muscle: Normal right side. Normal left side Deep tendon reflexes: Normal at the biceps. Normal at Brachioradialis. Normal at triceps Vertebral body tenderness to deep palpation over Cervical facet loading test: positive bilaterally Spurling test: positive bilaterally Neck distraction test: positive bilaterally Tera sign: positive bilaterally Lumbar spine Motor strength lower extremities ,thigh and legs 5/5 Right side , 5/5 Left side Deep tendon reflexes : Normal Knee Jerk. Normal Ankle Jerk Vertebral body tenderness over L3, L4 Lumbar facet Loading Test: positive Right / positive Left Range of motion of the lumbar spine Flexion 30 degrees, extension 10 degrees Straight Leg Raise test: Left/ Right positive at degree Vishal test: positive right / positive left. Severe tenderness over the Sacroiliac joint on the Right / Left sides Gaenslen test: positive bilaterally Seated flexion test: positive bilaterally. Sacral spine : Severe tenderness over the Sacroiliac joint: right side / left side Range of motion: Flexion of the lumbar spine <60 degrees Range of motion: Extension of the lumbar spine <20 degrees Gaenslen's Test positive Rahul's Test positive Vishal test: positive right side / left side Thigh Thrust Test Sacral Thrust Test Imaging: MRI without contrast of the lumbar spine from 12/31/21 reviewed Assessment/ Plan : Lumbar Spondylosis, Lumbar DDD, facet arthropathy without myelopathy Recommendation of JUAN L3-L4. May need a series of injections, up to 3 within a 6 mo period, for optimal pain relief. Risks, benefits of procedure discussed and patient verbalized understanding. Admits to aspirin or anti- coagulant use or medical history of diabetes. Protocol for discontinuation/ continuation of medications dontae procedure discussed. Medical clearance letter(s) sent to Dr(s) Ayaka Patiño & Gilda Maxwell. All questions answered. I have spent greater than 30 minutes on patient care today. Dr Bar was available by phone for the evaluation of this patient. The time was used to review the medical records including relevant urine studies and Prescription history (MAPs), review of the available imaging, evaluation and examination of the patient, coordination of care with the medical staff and if applicable referring physicians, as well as creation of the medical record PQRS Narrative: Smoking Status Former smoker Home Medications: Ambulatory Orders Chlorthalidone 12.5 mg PO DAILY 02/01/14 Dabigatran [Pradaxa] 150 mg PO BID 02/01/14 glipiZIDE [Glucotrol] 20 mg PO BID 02/01/14 lisinopriL 40 mg PO BID 02/01/14 metFORMIN HCL [Glucophage] 1,000 mg PO BID 02/01/14 Aspirin 81 mg PO HS 05/03/15 Cholecalciferol [Vitamin D3 (10 Mcg = 400 Iu)] 10 mcg PO DAILY 05/03/15 Docusate Sodium [Dok] 100 mg PO DAILY 05/03/15 [place]-3 Fatty Acids/Fish Oil [Fish Oil 1,000 mg Softgel] 1 cap PO DAILY 05/03/15 Potassium 99 mg PO DAILY 05/03/15 Insulin Glargine,Hum.rec.anlog [Lantus Solostar Pen] 70 unit SQ HS 03/30/19 Magnesium Oxide [Montemayor] 500 mg PO DAILY 03/30/19 Sotalol [Betapace] 120 mg PO BID 03/30/19 Alogliptin Benzoate [Alogliptin] 25 mg PO DAILY 05/19/20 Gabapentin [Neurontin] 600 mg PO TID 05/19/20 Rosuvastatin Calcium [Crestor] 20 mg PO HS 05/19/20 dilTIAZem HCL [dilTIAZem HCL 24Hr ER (Xr)] 120 mg PO DAILY 05/19/20 Ascorbic Acid [Vitamin C] 1,000 mg PO DAILY 12/27/21 EPINEPHrine (Auto Inject) [Epipen] 0.3 mg IM ONCE PRN 12/27/21 Lidocaine 5% Patch [Lidoderm 5% Patch] 1 patch TRANSDERM DAILY 12/27/21 Multivit-Min/FA/Lycopen/Lutein [Centrum Silver Men Tablet] 1 tab PO DAILY 12/27/21 Psyllium Husk [Metamucil] 0.8 gm PO DAILY 12/27/21 hydrALAZINE HCL [Apresoline] 50 mg PO TID 12/27/21 Controlled Substance Measures - Controlled Substance Measures Is patient prescribed a controlled substance at discharge?: No
== END ==
LOC: PNWHC3 11:01
PROVIDERS: ATTEND Specialist
DX: M47.816 Spondylosis without myelopathy or radiculopathy, lumbar region (principal); M51.36 Other intervertebral disc degeneration, lumbar region; I48.91 Unspecified atrial fibrillation; E11.36 Type 2 diabetes mellitus with diabetic cataract; E78.5 Hyperlipidemia, unspecified; Z79.4 Long term (current) use of insulin; Z79.84 Long term (current) use of oral hypoglycemic drugs; Z87.891 Personal history of nicotine dependence; Z79.82 Long term (current) use of aspirin; Z91.030 Bee allergy status
CPT/HCPCS: 99211

== ENCOUNTER 2022-04-07 09:48 | Day surgery (SDC) | payer MEDICARE, OTHER ==
[2022-04-07] MEDS ORDERED: LIDOCAINE 1% (10MG/ML) FOR IV START INTRADERMA PRN (09:56)
[2022-04-07] MEDS ORDERED: LACTATED RINGERS 1,000 ML IV SCH (09:56)
[2022-04-07 10:06] VITALS: RESP 16; TEMP 98.3
[2022-04-07 10:18] LABS: Glucose,Whole Blood 144 mg/dL (70-110)
[2022-04-07] MEDS ORDERED: methylPREDNISolone ACETATE 40 MG/ML 1 ML VIAL ONE (10:21)
[2022-04-07] MEDS ORDERED: IOPAMIDOL M200 10 ML VIAL ONE (10:21)
[2022-04-07] MEDS ORDERED: MIDAZOLAM 2 MG/2 ML VIAL ONE (10:21)
[2022-04-07] MEDS ORDERED: fentaNYL (PF) 50 MCG/ML 2 ML AMP ONE (10:21)
--- NOTE | 2022-04-07 10:33 | P.PCN ---
Date of Procedure: 04/07/22 Procedure(s) Performed: PREOPERATIVE DIAGNOSIS: 1- Lumbar Degenerative Disc Diseases 2-Lumbar spondylosis with Facet arthropathy without myelopathy. POSTOPERATIVE DIAGNOSIS: Same as preop diagnosis. PROCEDURE 1. Lumbar epidural steroid injection under fluoroscopic guidance at the L3-4 level. (Fluoroscopy imaging was available in radiology department) 2. Lumbar epidurogram. ANESTHESIA: moderate sedation with intravenous Versed 1 mg ,and fentanyle 50 Mcg Sedation start time : 1023 Sedation end time : 1029 EBL: Minimal PROCEDURE INDICATION: The patient with low back pain and radiculitis symptoms unresponsive to conservative treatment. Fluoroscopy was used to optimize visualization of the needle placement and to maximize safety. PROCEDURE DESCRIPTION / TECHNIQUE: The patient was seen and identified in the preoperative area. Risks, benefits, complications including but not limited to infections ,bleeding ,allergic reaction to the medications ,nerve damage and not complete pain releife , and alternatives were discussed with the patient. The patient agreed to proceed with the procedure and signed the consent. IV was started, and vital signs were stable. Patient was taken to the OR and time out was completed. The patient was placed in the prone position on procedure table and a pillow was placed under the abdomen to reduce lumbar lordosis. The lumbosacral area was prepped and draped in the usual sterile fashion.ere closely monitored during the procedure. Conscious sedation was used during the procedure to decrease patients anxiety. Vital signs was monitered during the entire procedure. Using anterior-posterior fluoroscopy, the L3-4 interlaminar space was identified and the skin over this site was marked and then infiltrated with 1% lidocaine subcutaneously. Subsequently, a 20-gauge Tuohy epidural needle was inserted and advanced toward the epidural space using the ``Loss of resistance technique and guided by AP and lateral fluoroscopy. The correct needle position in the e pidural space was verified with the injection of 2 mL of the water soluble contrast dye Isovue 200 contrast and observing an excellent epidurogram with the epidural spread of the dye, after negative aspiration for blood and CSF and in the absence of paresthesias. Again after negative aspiration, a 6 ml mixture containing 40 mg of Depo-medrol ( Preservetive Free ), and 2 ml of preservative free Normal Saline, and 2 ml of preservative free lidocaine 1% solution was injected and a washout of epidurogram was seen. Needle was withdrawn intact, skin was cleansed, and bandages were applied. COMPLICATIONS: None DISPOSITION / PLANS: The patient was placed in a supine position and transferred to the recovery area in a stable condition for observation. There was no evidence of lower extremity motor or sensory deficit after the procedure. Patient was discharged from the recovery room after meeting discharge criteria. Home discharge instructions were given to the patient by the staff. The patient was reexamined prior to discharge. The patient will schedule a follow up in the clinic in 2-4 weeks. Patient's use PRDAXA and the last dose was taken more than 72 hours ago
[2022-04-07] MEDS ORDERED: IV FLUID CONTINUATION 1,000 ML IV ONE (10:36)
[2022-04-07 10:51] VITALS: BP 145/65; PULSE 48
--- NOTE | 2022-04-07 12:12 | FL ---
Fluoroscopy HISTORY: Pain 1 seconds fluoroscopy time supplied to the referring clinician. 1 intraoperative C-arm images docume nt the procedure. See dictated report from anesthesia.
== END 2022-04-07 11:07 | disposition home or self-care (01) ==
LOC: ORPAIN 09:48
PROVIDERS: ATTEND Specialist
DX: M51.16 Intervertebral disc disorders with radiculopathy, lumbar region (principal); M47.22 Other spondylosis with radiculopathy, cervical region
CPT/HCPCS: 62323; J2250; J1030; J3010; Q9966

== ENCOUNTER 2022-05-17 08:57 | Day surgery (SDC) | payer OTHER ==
[~2022-05-17 08:57] MED LIST: LACTATED RINGERS 1,000 ML IV SCH
[2022-05-17 09:23] VITALS: RESP 16; TEMP 97.7
[2022-05-17] MEDS ORDERED: LIDOCAINE 1% (10MG/ML) FOR IV START INTRADERMA ONE (09:33)
[2022-05-17 09:37] LABS: Glucose,Whole Blood 132 mg/dL (70-110)
[2022-05-17] MEDS ORDERED: MIDAZOLAM 2 MG/2 ML VIAL ONE (09:41)
[2022-05-17] MEDS ORDERED: IOPAMIDOL M200 10 ML VIAL ONE (09:41)
[2022-05-17] MEDS ORDERED: methylPREDNISolone ACETATE 40 MG/ML 1 ML VIAL ONE (09:41)
[2022-05-17] MEDS ORDERED: fentaNYL (PF) 50 MCG/ML 2 ML AMP ONE (09:41)
--- NOTE | 2022-05-17 09:49 | P.PCN ---
Date of Procedure: 05/17/22 Description of Procedure: PREOPERATIVE DIAGNOSIS: lumbar radiculopathy POSTOPERATIVE DIAGNOSIS: Lumbar radiculopathy PROCEDURE 1. Lumbar epidural steroid injection under fluoroscopic guidance at the L3-L4 level. 2. Lumbar epidurogram. Imaging: Fluoroscopy was used, images where saved to the medical record ANESTHESIA: Medication Administered by: Nurse Sedation Type: Moderate sedation Sedation Supervision start time: 942 Sedation Supervision end time: 948 EBL: Minimal PROCEDURE INDICATION: The patient with low back pain and radiculitis symptoms unresponsive to conservative treatment. Fluoroscopy was used to optimize visualization of the needle placement and to maximize safety. PROCEDURE DESCRIPTION / TECHNIQUE: The patient was seen and identified in the preoperative area. Risks, benefits, complications including but not limited to infections, bleeding, allergic reaction to medications, nerve damage and incomplete pain relief, as well as alternatives to the procedure were discussed with the patient. The patient agreed to proceed with the procedure and signed the consent. IV was started if indicated above, and vital signs were stable. Patient was taken to the OR and time out was completed. The patient was placed in the prone position on procedure table and a pillow was placed under the abdomen to reduce lumbar lordosis. The lumbosacral area was prepped and draped in the usual sterile fashion. Vitals were closely monitored during the procedure. Using anterior-posterior fluoroscopy, the L3-L4 interlaminar space was identi fied and the skin over this site was marked and then infiltrated with 1% lidocaine subcutaneously. Subsequently, a 20-gauge Tuohy epidural needle was inserted and advanced toward the epidural space using the Loss of resistance technique and guided by AP and lateral fluoroscopy. The correct needle position in the epidural space was verified with the injection of 1 mL of Omnipaque 180 contrast to observe an acceptable epidurogram, after negative aspiration for blood and CSF and in the absence of paresthesias. Again after negative aspiration, a 3 ml mixture containing 40mg of depomedrol and 2 ml of preservative free Normal Saline was injected and a washout of epidurogram was seen. Needle was withdrawn intact, skin was cleansed, and bandages were applied. COMPLICATIONS: None DISPOSITION / PLANS: The patient was placed in a supine position and transferred to the recovery area in a stable condition for observation. There was no evidence of lower extremity motor or sensory deficit after the procedure. Patient was discharged from the recovery room after meeting discharge criteria. Home discharge instructions were given to the patient by the staff. The patient was reexamined prior to discharge. The patient will follow up as directed.
[2022-05-17] MEDS ORDERED: IV FLUID CONTINUATION 1,000 ML IV ONE (09:54)
--- NOTE | 2022-05-17 09:59 | FL ---
Intraoperative/procedural fluoroscopic services were provided for lumbar epidural injection. Total fl uoroscopy time is 3 seconds with a total of 2 submitted images to PACS. Please see the operative note for further details.
[2022-05-17 10:08] VITALS: BP 148/68; PULSE 57
== END 2022-05-17 10:30 | disposition home or self-care (01) ==
LOC: ORPAIN 08:57
PROVIDERS: ATTEND Hospitalist
DX: M54.16 Radiculopathy, lumbar region (principal)
CPT/HCPCS: 62323; J2250; J1030; J3010; Q9966

== ENCOUNTER → 2022-06-09 | Outpatient (CLI) | payer OTHER ==
--- NOTE | 2022-06-09 10:55 | P.PAINPG ---
Subjective Progress Note Date: 06/09/22 Principal diagnosis: Lumbar back pain Mr. Nur is a 76 -year-old pleasant male came to the [facility] pain clinic for lumbar back pain . Patient has ongoing pain for many years. He had lumbar back surgery, which helped for his radicular symptoms. Patient describes pain is aching, throbbing, constant type of pain. Pain is not radiating to his lower extremities. He had lumbar L3-L4 epidural steroid injection #2 on 05/17/2022. Which helped marginal pain relief 30% for 2 days after that his pain back to normal levels. But he had more than 80% pain relief for more than 6 weeks duration with the previous L3-L4 epidural steroid injection done on 04/07/2022.. Patient rated pain levels are 6 out of 10 in severity. With the help of medications pain levels are 4-8 out of 10 in severity. Activities making pain worse. Medications, resting, action procedures helping in relieving patient's pain. Patient pain some days better than others. Overall activities decreased secondary to pain. Because of the pain sometimes patient is feeling lack of sleep, interest, and energy. Denied any side effects with the medications. Denied any bowel or bladder problems at this time. Patient is not using any walking aids for walking support. Patient denies any suicidal or homicidal ideations intent or plan. Patient denies any auditory or visual hallucinations. Patient denied any red flag symptoms related to pain. 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 Sensation grossly intact Lower extremity: Normal strength, and decreased range of motion secondary to pain Lumbar spine: Healed low lumbar scar Paravertebral tenderness: positive Lumbar facet load test : positive Sacroiliac joint tenderness: Positive Thigh thrust test: Positive SI joint compression test: Positive Fabere test: Positive Strait leg raising test: Negative - Constitutional Constitutional Comment(s): 13 point review of symptoms negative except as mentioned in the history of present illness Assessment and Plan Assessment: Lumbar postlaminectomy syndrome Lumbar spondylosis without myelopathy Myofascial pain syndrome, and chronic pain syndrome Sacroiliac joint dysfunction Plan: #1 Diagnoses, prognosis, and multiple treatment options including but not limited to physical therapy, interventional therapy, adjunct medication therapy, narcotic medication, and surgical options were discussed with the patient. And all questions were answered to the patient's satisfaction. #2 treatment plan agreement : Patient was thoroughly discussed regarding the treatment options, alternatives, and importance of exercises as tolerated. Patient clearly understood. #3 Patient was counseled on importance of regular exercise. Including holly chi, aerobic exercises as tolerated. Which helps for chronic pain, and overall well- being. Patient also counseled regarding importance of weight control rolling chronic pain, and overall other health issues. By altering diet habits, minimizing sugar intake, and processed foods helps in minimizing Inflammation. #4 investigations: MAPS- reviewed , urine drug test- none #5 diagnostic tests: None #6 consultation : None at this time # 7 interventional procedures: L3-L4 lumbar epidural straight injection #3 . Procedure, complications, alternatives discussed with the patient. #8 medications None from the pain clinic #9 morphine milligrams equivalents dose ( MME) per day: 0 from the pain clinic. # 10 TENS unit's, and percussion massage device #11 disposition: scheduled to follow up with pain clinic in 4 weeks duration. 1 Time with Patient: Less than 30 PQRS Measure Charge Sheet Measure #130: Documentation of Current Meds in Medical Chart: Patient's medications documented in chart Measure #226: Tobacco Use: Screen & Cessation Intervention: Pt not a tobacco user Measure #111: Pneumonia Vaccination: Pneumococcal vaccine administered or previously received Measure #47: Advance Care Plan: Advance care planning discussed & documented, pl an or surrogate given Measure #412: Opioid Treatment Agreement: No documentation of signed opioid treatment agreement Measure #408: Opioid Therapy Follow-up Evaluation: Patient had NO f/u eval minimum every 3 months during opioid therapy Measure #317: Preventitive Care & Scrn High Bld Press & F/U: Pre-hypertensive or hypertensive BP documented, pt will f/u with PCP Measure #128: Body Mass Index (BMI) Screening & Follow-up: BMI documented within normal parameters Measure #131: Pain Assessment & Follow-up: Pain positive & plan documented Measure #431: Unhealthy Alcohol Use Preventative Care & Scrn: Patient not identified as an unhealthy alcohol user PQRS Narrative: Smoking Status Former smoker Hx Alcohol Use (MH) No Home Medications: Ambulatory Orders Chlorthalidone 12.5 mg PO DAILY 02/01/14 Dabigatran [Pradaxa] 150 mg PO BID 02/01/14 glipiZIDE [Glucotrol] 20 mg PO BID 02/01/14 lisinopriL 40 mg PO BID 02/01/14 metFORMIN HCL [Glucophage] 1,000 mg PO BID 02/01/14 Aspirin 81 mg PO HS 05/03/15 Cholecalciferol [Vitamin D3 (10 Mcg = 400 Iu)] 10 mcg PO DAILY 05/03/15 Docusate Sodium [Dok] 100 mg PO DAILY 05/03/15 [place]-3 Fatty Acids/Fish Oil [Fish Oil 1,000 mg Softgel] 1 cap PO BID 05/03/15 Potassium 99 mg PO DAILY 05/03/15 Insulin Glargine,Hum.rec.anlog [Lantus Solostar Pen] 70 unit SQ HS 03/30/19 Sotalol [Betapace] 80 mg PO BID 03/30/19 Alogliptin Benzoate [Alogliptin] 25 mg PO DAILY 05/19/20 Gabapentin [Neurontin] 600 mg PO TID 05/19/20 Rosuvastatin Calcium [Crestor] 20 mg PO HS 05/19/20 dilTIAZem HCL [dilTIAZem HCL 24Hr ER (Xr)] 120 mg PO DAILY 05/19/20 Ascorbic Acid [Vitamin C] 1,000 mg PO DAILY 12/27/21 EPINEPHrine (Auto Inject) [Epipen] 0.3 mg IM ONCE PRN 12/27/21 Lidocaine 5% Patch [Lidoderm 5% Patch] 1 patch TRANSDERM DAILY PRN 12/27/21 Multivit-Min/FA/Lycopen/Lutein [Centrum Silver Men Tablet] 1 tab PO DAILY 12/27/21 hydrALAZINE HCL [Apresoline] 50 mg PO TID 12/27/21 Controlled Substance Measures - Controlled Substance Measures Is patient prescribed a controlled substance at discharge?: No
[2022-06-09 11:10] VITALS: BP 179/70; PULSE 59; RESP 18; TEMP 97.6
== END ==
LOC: PNWHC3 09:26
DX: M47.816 Spondylosis without myelopathy or radiculopathy, lumbar region (principal); M96.1 Postlaminectomy syndrome, not elsewhere classified; M46.1 Sacroiliitis, not elsewhere classified; M79.10 Myalgia, unspecified site; G89.4 Chronic pain syndrome; Z91.030 Bee allergy status; Z87.891 Personal history of nicotine dependence
CPT/HCPCS: 99211

== ENCOUNTER 2022-06-28 09:10 | Day surgery (SDC) | payer OTHER ==
[~2022-06-28 09:10] MED LIST changes: +LIDOCAINE 1% (10MG/ML) FOR IV START INTRADERMA PRN
[2022-06-28 10:29] VITALS: RESP 16; TEMP 96.8
[2022-06-28 10:37] LABS: Glucose,Whole Blood 78 mg/dL (70-110)
[2022-06-28] MEDS ORDERED: IOPAMIDOL M200 10 ML VIAL ONE (10:39)
[2022-06-28] MEDS ORDERED: methylPREDNISolone ACETATE 40 MG/ML 1 ML VIAL ONE (10:39)
[2022-06-28] MEDS ORDERED: fentaNYL (PF) 50 MCG/ML 2 ML AMP ONE (10:39)
[2022-06-28] MEDS ORDERED: MIDAZOLAM 2 MG/2 ML VIAL ONE (10:39)
[2022-06-28] MEDS ORDERED: IV FLUID CONTINUATION 1,000 ML IV ONE (10:56)
--- NOTE | 2022-06-28 10:56 | P.PCN ---
Date of Procedure: 06/28/22 Procedure(s) Performed: PREOPERATIVE DIAGNOSIS: 1- Lumbar Degenerative Disc Diseases 2-Lumbar spondylosis with Facet arthropathy without myelopathy. 3-lumbar postlaminectomy pain syndrome. 4-myofascial pain syndrome lumbar paraspinal muscles POSTOPERATIVE DIAGNOSIS: Same as preop diagnosis. PROCEDURE 1. Lumbar epidural steroid injection under fluoroscopic guidance at the L3-4 level. (Fluoroscopy imaging was available in radiology department) 2. Lumbar epidurogram. 3-trigger point injections and lumbar paraspinal muscles, 3 on the right side, and 1 on the left side lumbar paraspinal muscles. ANESTHESIA: moderate sedation with intravenous Versed 1 mg ,and fentanyle 50 Mcg Sedation start time : 1041 Sedation end time : 1052 EBL: Minimal PROCEDURE INDICATION: The patient with low back pain and radiculitis symptoms unresponsive to conservative treatment. Fluoroscopy was used to optimize visualization of the needle placement and to maximize safety. PROCEDURE DESCRIPTION / TECHNIQUE: The patient was seen and identified in the preoperative area. Risks, benefits, complications including but not limited to infections ,bleeding ,allergic reaction to the medications ,nerve damage and not complete pain releife , and alternatives were discussed with the patient. The patient agreed to proceed with the procedure and signed the consent. IV was started, and vital signs were stable. Patient was taken to the OR and time out was completed. The patient was placed in the prone position on procedure table and a pillow was placed under the abdomen to reduce lumbar lordosis. The lumbosacral area was prepped and draped in the usual sterile fashion.ere closely monitored during the procedure. Conscious sedation was used during the procedure to decrease patients anxiety. Vital signs was monitered during the entire procedure. Using anterior-posterior fluoroscopy, the L3-4 interlaminar space was identified and the skin over this site was marked and then infiltrated with 1% lidocaine subcutaneously. Subsequently, a 20-gauge Tuohy epidural needle was inserted and advanced toward the epidural space using the ``Loss of resistance technique and guided by AP and lateral fluoroscopy. The correct needle position in the epidural space was verified with the injection of 2 mL of the water soluble contrast dye Isovue 200 contrast and observing an excellent epidurogram with the epidural spread of the dye, after negative aspiration for blood and CSF and in the absence of paresthesias. Again after negative aspiration, a 6 ml mixture containing 40 mg of Depo-medrol ( Preservetive Free ), and 2 ml of preservative free Normal Saline, and 2 ml of preservative free lidocaine 1% solution was injected and a washout of epidurogram was seen. Needle was withdrawn intact, After that the trigger point injection done in a similar technique H of the trigger point injected with the ropivacaine 0.5% to using 25-gauge needle, injection done after negative aspiration and there was no paresthesia during the injection, total of 3 trigger point injected on the right side lumbar paraspinal muscle and 1 on the left side lumbar paraspinal muscles, tolerated the procedure well without any complications and he will follow up in clinic in a few weeks. COMPLICATIONS: None DISPOSITION / PLANS: The patient was placed in a supine position and transferred to the recovery area in a stable condition for observation. There was no evidence of lower extremity motor or sensory deficit after the procedure. Patient was discharged from the recovery room after meeting discharge criteria. Home discharge instructions were given to the patient by the staff. The patient was reexamined prior to discharge. The patient will schedule a follow up in the clinic in 2-4 weeks. last does of pradexa was 5 days ago
[2022-06-28 11:13] VITALS: BP 158/71; PULSE 57
--- NOTE | 2022-06-28 11:20 | FL ---
Intraoperative/procedural fluoroscopic services were provided for lumbar epidural injection. Total fl uoroscopy time is 2 seconds with a total of 1 submitted image to PACS. Please see the operative note for further details.
== END 2022-06-28 11:32 | disposition home or self-care (01) ==
LOC: ORPAIN 09:10
PROVIDERS: ATTEND Specialist
DX: M51.16 Intervertebral disc disorders with radiculopathy, lumbar region (principal); M47.26 Other spondylosis with radiculopathy, lumbar region; M96.1 Postlaminectomy syndrome, not elsewhere classified; M79.18 Myalgia, other site; Z91.030 Bee allergy status
CPT/HCPCS: 20552; 62323; 99152; J2250; J1030; J3010; Q9966

== ENCOUNTER → 2022-07-14 | Outpatient (CLI) | payer OTHER ==
[2022-07-14 10:45] VITALS: BP 198/92; PULSE 59; RESP 18; TEMP 97.5
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
== END ==
LOC: PNWHC3 09:17
PROVIDERS: ATTEND Specialist
DX: M47.812 Spondylosis without myelopathy or radiculopathy, cervical region (principal); M71.38 Other bursal cyst, other site; M48.02 Spinal stenosis, cervical region; Z87.891 Personal history of nicotine dependence; Z91.030 Bee allergy status; Z79.84 Long term (current) use of oral hypoglycemic drugs; Z79.899 Other long term (current) drug therapy; Z79.82 Long term (current) use of aspirin
CPT/HCPCS: 99211

== ENCOUNTER 2023-03-15 08:58 | Emergency (ER) | payer MEDICARE ==
[2023-03-15 09:04] LABS: Glucose,Whole Blood 98 mg/dL (70-110)
--- NOTE | 2023-03-15 09:20 | ED ---
General Adult HPI - General Chief complaint: Altered Mental Status Stated complaint: AMS Time Seen by Provider: 03/15/23 09:00 Source: patient, EMS, RN notes reviewed, old records reviewed Mode of arrival: EMS Limitations: no limitations - History of Present Illness Initial comments: 77-year-old male with history diabetes presenting with hypoglycemia. Upon arrival paramedics found the patient to be unresponsive and blood sugar was 50. He was given IV dextrose and had improvement in both blood sugar and mental status. Patient is awake and alert time my evaluation. No pain complaints. He states he took his insulin as prescribed as well as the several oral agents that he is currently on including metformin, glipizide. Patient denies any recent changes in medication. He denies any missed meals. No complaints. He is alert and oriented but somewhat slow to respond. - Related Data Home Medications Medication Instructions Recorded Confirmed Chlorthalidone 12.5 mg PO DAILY 02/01/14 03/15/23 Dabigatran [Pradaxa] 150 mg PO BID 02/01/14 03/15/23 lisinopriL 40 mg PO BID 02/01/14 03/15/23 metFORMIN HCL [Glucophage] 1,000 mg PO BID 02/01/14 03/15/23 Aspirin 81 mg PO HS 05/03/15 03/15/23 [place]-3 Fatty Acids/Fish Oil [Fish 2 cap PO DAILY 05/03/15 03/15/23 Oil 1,000 mg Softgel] Potassium 99 mg PO DAILY 05/03/15 03/15/23 Insulin Glargine,Hum.rec.anlog 70 unit SQ HS 03/30/19 03/15/23 [Lantus Solostar Pen] Alogliptin Benzoate [Alogliptin] 25 mg PO DAILY 05/19/20 03/15/23 Gabapentin [Neurontin] 600 mg PO TID 05/19/20 03/15/23 Rosuvastatin Calcium [Crestor] 20 mg PO HS 05/19/20 03/15/23 dilTIAZem HCL [dilTIAZem HCL 24Hr 120 mg PO DAILY 05/19/20 03/15/23 ER (Xr)] Ascorbic Acid [Vitamin C] 1,000 mg PO DAILY 12/27/21 03/15/23 EPINEPHrine (Auto Inject) [Epipen] 0.3 mg IM ONCE PRN 12/27/21 03/15/23 Lidocaine 5% Patch [Lidoderm 5% 1 patch TRANSDERM DAILY PRN 12/27/21 03/15/23 Patch] Mv-Min/Folic/K1/Lycopen/Lutein 1 tab PO DAILY 12/27/21 03/15/23 [Centrum Silver Men Tablet] hydrALAZINE HCL [Apresoline] 50 mg PO TID 12/27/21 03/15/23 Alpha Lipoic Acid 200 mg PO TID 03/15/23 03/15/23 Calcium Carbonate/Vitamin D3 2 tab PO DAILY 03/15/23 03/15/23 [Calcium 500-Vit D3 5 Mcg (200 Iu)] Cholecalciferol [Vitamin D3 (10 10 mcg PO DAILY 03/15/23 03/15/23 Mcg = 400 Iu)] Empagliflozin [Jardiance] 10 mg PO DAILY 03/15/23 03/15/23 Glucosam/Anthony-Msm1/C/Dany/Bosw 1 tab PO BID 03/15/23 03/15/23 [Glucosamine-Chondroitin Tablet] Magnesium Oxide [Magnesium] 500 mg PO DAILY 03/15/23 03/15/23 Psyllium Husk [Fiber Capsule] 0.8 gm PO DAILY 03/15/23 03/15/23 Sildenafil Citrate [Viagra] 50 mg PO DAILY PRN 03/15/23 03/15/23 Turmeric Root Extract [Turmeric] 500 mg PO DAILY 03/15/23 03/15/23 Allergies Allergy/AdvReac Type Severity Reaction Status Date / Time bee venom protein (honey bee) Allergy Anaphylaxis Verified 03/15/23 09:12 Review of Systems ROS Statement: Those systems with pertinent positive or pertinent negative responses have been documented in the HPI. ROS Other: All systems not noted in ROS Statement are negative. 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 neuropathy in feet, covid 05/2020 hospitalized 5 days History of Any Multi-Drug Resistant Organisms: None Reported Past Surgical History: Back Surgery, Prostate Surgery, Tonsillectomy Additional Past Surgical History / Comment(s): tumor removal right hip, back surgery 2015 , bilateral cataract removed with lenses placed Past Anesthesia/Blood Transfusion Reactions: No Reported Reaction Additional Past Anesthesia/Blood Transfusion Reaction / Comment(s): no blood transfusions Past Psychological History: No Psychological Hx Reported Smoking Status: Former smoker Past Alcohol Use History: Occasional Past Drug Use History: None Reported - Past Family History Father Family Medical History: Coronary Artery Disease (CAD), Myocardial Infarction ([place]) Additional Family Medical History / Comment(s): in from a heart attack, valve replacement Mother Family Medical History: No Reported History General Exam General appearance: alert, in no apparent distress Head exam: Present: atraumatic, normocephalic Eye exam: Present: normal appearance, PERRL ENT exam: Present: normal exam Neck exam: Present: normal inspection. Absent: tenderness, meningismus Respiratory exam: Present: normal lung sounds bilaterally, respiratory distress Cardiovascular Exam: Present: regular rate, normal rhythm GI/Abdominal exam: Present: soft, distended. Absent: tenderness, guarding Extremities exam: Present: normal inspection, normal capillary refill Neurological exam: Present: alert, oriented X3, CN II-XII intact. Absent: motor sensory deficit Psychiatric exam: Present: normal affect, normal mood Skin exam: Present: warm, dry, intact Course Vital Signs 03/15/23 03/15/23 03/15/23 09:08 10:06 11:13 Temperature 97.4 F L Pulse Rate 58 L 71 68 Respiratory 18 18 18 Rate Blood Pressure 193/85 162/75 152/74 O2 Sat by Pulse 97 95 94 L Oximetry 03/15/23 12:19 Temperature 97.6 F Pulse Rate 68 Respiratory 17 Rate Blood Pressure 174/80 O2 Sat by Pulse 95 Oximetry Medical Decision Making - Medical Decision Making Was pt. sent in by a medical professional or institution (, PA, F[employer]IT[employer] WORKER, urgent care, hospital, or [facility]...) When possible be specific @ -No Did you speak to anyone other than the patient for history (EMS, parent, family, police, friend...)? What history was obtained from this source @ -[Paramedics Did you review nursing and triage notes (agree or disagree)? Why? @ -I reviewed and agree with nursing and triage notes Were old charts reviewed (outside hosp., previous admission, EMS record, old EKG, old radiological studies, urgent care reports/EKG's, [facility] records)? Report findings @ -No old charts were reviewed Differential Diagnosis (chest pain, altered mental status, abdominal pain women, abdominal pain men, vaginal bleeding, weakness, fever, dyspnea, syncope, headache, dizziness, GI bleed, back pain, seizure, CVA, palpatations, mental health, musculoskeletal)? @ Differential Altered Mental Status: Hypoglycemia, DKA, hypercapnia, ETOH, overdose, CO poisoning, trauma, myxedema coma, HTN encephalopathy, infection, encephalitis, psychosis, intercranial hemor rhage, hepatic encephalopathy, meningitis, CVA, this is not meant to be an all- inclusive list EKG interpreted by me (3pts min.). @Sinus bradycardia rate of 55, OK interval 194, QRS duration 109, QTC 45, no ST segment changes. X-rays interpreted by me (1pt min.). @ -None done CT interpreted by me (1pt min.). @ -None done U/S interpreted by me (1pt. min.). @ -None done What testing was considered but not performed or refused? (CT, X-rays, U/S, labs)? Why? @ -None What meds were considered but not given or refused? Why? @ -None Did you discuss the management of the patient with other professionals (professionals i.e. , PA, F[employer] WORKER, lab, RT, psych nurse, social worker health services, supervising architect, teacher, traffic police officer, housing case manager)? Give summary @ -No Was smoking cessation discussed for >3mins.? @ -No Was critical care preformed (if so, how long)? @ -No Were there social determinants of health that impacted care today? How? (Homelessness, low income, unemployed, alcoholism, drug addiction, transportation, low edu. Level, literacy, decrease access to med. care, usp, rehab)? @ -No Was there de-escalation of care discussed even if they declined (Discuss DNR or withdrawal of care, Hospice)? DNR status @ -No What co-morbidities impacted this encounter? (DM, HTN, Smoking, COPD, CAD, Cancer, CVA, ARF, Chemo, Hep., AIDS, mental health diagnosis, sleep apnea, morbid obesity)? @ -[Insulin-dependent diabetic Was patient admitted / discharged? Hospital course, mention meds given and route, prescriptions, significant lab abnormalities, going to OR and other pertinent info. @ -[77-year-old male presenting with confusion, altered level consciousness likely secondary to hypoglycemia initial blood sugar was 50. Patient's symptoms rapidly improved with IV dextrose. He has normal CBC and normal CMP with the exception of hyperglycemia. He is given IV dextrose by paramedics and is fed in the emergency department. Blood glucose is monitored closely. Undiagnosed new problem with uncertain prognosis? @ -No Drug Therapy requiring intensive monitoring for toxicity (Heparin, Nitro, Insulin, Cardizem)? @ -No Were any procedures done? @ -No Diagnosis/symptom? @ -Hypoglycemia Acute, or Chronic, or Acute on Chronic? @ Acute Uncomplicated (without systemic symptoms) or Complicated (systemic symptoms)? @ -default Side effects of treatment? @ -No Exacerbation, Progression, or Severe Exacerbation? @ -No Poses a threat to life or bodily function? How? (Chest pain, [place], [place], pneumonia, PE, COPD, DKA, ARF, appy, cholecystitis, CVA, Diverticulitis, Homicidal, Suicidal, threat to staff... and all critical care pts) @ Yes, hypoglycemia, seizure, - Lab Data Result diagrams: 03/15/23 09:17 03/15/23 09:17 Lab Results 03/15/23 03/15/23 03/15/23 Range/Units 09:03 09:17 09:17 WBC 7.0 (3.8-10.6) k/uL RBC 4.70 (4.30-5.90) m/uL Hgb 13.6 (13.0-17.5) gm/dL Hct 40.8 (39.0-53.0) % MCV 86.8 (80.0-100.0) fL MCH 29.0 (25.0-35.0) pg MCHC 33.4 (31.0-37.0) g/dL RDW 14.1 (11.5-15.5) % Plt Count 169 (150-450) k/uL MPV 8.1 Neutrophils % 72 % Lymphocytes % 19 % Monocytes % 5 % Eosinophils % 2 % Basophils % 0 % Neutrophils # 5.1 (1.3-7.7) k/uL Lymphocytes # 1.3 (1.0-4.8) k/uL Monocytes # 0.3 (0-1.0) k/uL Eosinophils # 0.1 (0-0.7) k/uL Basophils # 0.0 (0-0.2) k/uL Sodium 141 (137-145) mmol/L Potassium 4.2 (3.5-5.1) mmol/L Chloride 108 H (98-107) mmol/L Carbon Dioxide 22 (22-30) mmol/L Anion Gap 11 mmol/L BUN 12 (9-20) mg/dL Creatinine 0.42 L (0.66-1.25) mg/dL Est GFR (CKD-EPI)AfAm >90 (>60 ml/min/1.73 sqM) Est GFR (CKD-EPI)NonAf >90 (>60 ml/min/1.73 sqM) Glucose 59 L (74-99) mg/dL POC Glucose (mg/dL) 98 (70-110) mg/dL POC Glu [place] ID Annalisa Wagoner Calcium 9.0 (8.4-10.2) mg/dL Magnesium 2.1 (1.6-2.3) mg/dL Total Bilirubin 0.4 (0.2-1.3) mg/dL AST 29 (17-59) U/L ALT 25 (4-49) U/L Alkaline Phosphatase 51 (38-126) U/L Total Protein 6.3 (6.3-8.2) g/dL Albumin 4.0 (3.5-5.0) g/dL Urine Color Urine Appearance (Clear) Urine pH (5.0-8.0) Ur Specific [place] (1.001-1.035) Urine Protein (Negative) Urine Glucose (UA) (Negative) Urine Ketones (Negative) Urine Blood (Negative) Urine Nitrite (Negative) Urine Bilirubin (Negative) Urine Urobilinogen (<2.0) mg/dL Ur Leukocyte Esterase (Negative) 03/15/23 03/15/23 03/15/23 Range/Units 09:17 10:40 11:37 WBC (3.8-10.6) k/uL RBC (4.30-5.90) m/uL Hgb (13.0-17.5) gm/dL Hct (39.0-53.0) % MCV (80.0-100.0) fL MCH (25.0-35.0) pg MCHC (31.0-37.0) g/dL RDW (11.5-15.5) % Plt Count (150-450) k/uL MPV Neutrophils % % Lymphocytes % % Monocytes % % Eosinophils % % Basophils % % Neutrophils # (1.3-7.7) k/uL Lymphocytes # (1.0-4.8) k/uL Monocytes # (0-1.0) k/uL Eosinophils # (0-0.7) k/uL Basophils # (0-0.2) k/uL Sodium (137-145) mmol/L Potassium (3.5-5.1) mmol/L Chloride (98-107) mmol/L Carbon Dioxide (22-30) mmol/L Anion Gap mmol/L BUN (9-20) mg/dL Creatinine (0.66-1.25) mg/dL Est GFR (CKD-EPI)AfAm (>60 ml/min/1.73 sqM) Est GFR (CKD-EPI)NonAf (>60 ml/min/1.73 sqM) Glucose (74-99) mg/dL POC Glucose (mg/dL) 90 106 (70-110) mg/dL POC Glu [place] ID Niki LopezAnnalisa Billingsley Calcium (8.4-10.2) mg/dL Magnesium (1.6-2.3) mg/dL Total Bilirubin (0.2-1.3) mg/dL AST (17-59) U/L ALT (4-49) U/L Alkaline Phosphatase (38-126) U/L Total Protein (6.3-8.2) g/dL Albumin (3.5-5.0) g/dL Urine Color Colorless Urine Appearance Clear (Clear) Urine pH 6.0 (5.0-8.0) Ur Specific [place] 1.007 (1.001-1.035) Urine Protein Negative (Negative) Urine Glucose (UA) 1+ H (Negative) Urine Ketones Negative (Negative) Urine Blood Negative (Negative) Urine Nitrite Negative (Negative) Urine Bilirubin Negative (Negative) Urine Urobilinogen <2.0 (<2.0) mg/dL Ur Leukocyte Esterase Negative (Negative) Disposition Clinical Impression: Hypoglycemia Disposition: HOME SELF-CARE Condition: Fair Instructions (If sedation given, give patient instructions): Hypoglycemia in a Person with Diabetes (DC) Additional Instructions: . Please monitor blood glucose closely. Please discontinue glipizide for the next several days until he can follow up with her primary care provider Is patient prescribed a controlled substance at d/c from ED?: No Referrals: Albert Kruger DO [Primary Care Provider] - 1-2 days Time of Disposition: 12:32
[2023-03-15 09:37] LABS: Basophils % (A) 0 %; Eosinophils # (A) 0.1 k/uL (0-0.7); Eosinophils % (A) 2 %; HCT 40.8 % (39.0-53.0); HGB 13.6 gm/dL (13.0-17.5); Lymphocytes # (A) 1.3 k/uL (1.0-4.8); Lymphocytes % (A) 19 %; MCHC 33.4 g/dL (31.0-37.0); MCV 86.8 fL (80.0-100.0); Mean Platelet Volume 8.1; Monocytes # (A) 0.3 k/uL (0-1.0); Monocytes % (A) 5 %; Neutrophils # (A) 5.1 k/uL (1.3-7.7); Neutrophils % (A) 72 %; Platelet Count 169 k/uL (150-450); RDW 14.1 % (11.5-15.5)
[2023-03-15 09:54] LABS: Appearance,Urine Clear (Clear); Bilirubin,Urine Negative (Negative); Blood,Urine Negative (Negative); Color,Urine Colorless; Glucose,Urine (UA) 1+ (Negative); Ketones,Urine Negative (Negative); Leukocyte Esterase,Urine Negative (Negative); Nitrite,Urine Negative (Negative); Protein,Urine Negative (Negative); Specific Gravity,Urine 1.007 (1.001-1.035); Urobilinogen,Urine <2.0 mg/dL (<2.0)
[2023-03-15 10:41] LABS: Glucose,Whole Blood 90 mg/dL (70-110)
[2023-03-15 10:46] LABS: ALT 25 U/L (4-49); AST 29 U/L (17-59); African American GFR (CKD) >90 (>60 ml/min/1.73 sqM); Alkaline Phosphatase 51 U/L (38-126); Anion Gap 11 mmol/L; Blood Urea Nitrogen 12 mg/dL (9-20); Carbon Dioxide 22 mmol/L (22-30); Chloride 108 mmol/L (98-107); Glucose 59 mg/dL (74-99); Magnesium 2.1 mg/dL (1.6-2.3); Non-African American GFR(CKD) >90 (>60 ml/min/1.73 sqM); Potassium 4.2 mmol/L (3.5-5.1); Sodium 141 mmol/L (137-145); Total Bilirubin 0.4 mg/dL (0.2-1.3); Total Protein 6.3 g/dL (6.3-8.2)
[2023-03-15 11:20] VITALS: PULSE 68
[2023-03-15 11:39] LABS: Glucose,Whole Blood 106 mg/dL (70-110)
[2023-03-15 12:20] VITALS: BP 174/80; RESP 17; TEMP 97.6
== END 2023-03-15 12:49 | disposition home or self-care (01) ==
LOC: EC 08:58
DX: E11.649 Type 2 diabetes mellitus with hypoglycemia without coma (principal); E11.36 Type 2 diabetes mellitus with diabetic cataract; E78.5 Hyperlipidemia, unspecified; I10 Essential (primary) hypertension; I48.91 Unspecified atrial fibrillation; Z87.891 Personal history of nicotine dependence; Z91.030 Bee allergy status; Z86.16 Personal history of COVID-19; Z79.84 Long term (current) use of oral hypoglycemic drugs; Z79.82 Long term (current) use of aspirin; Z79.01 Long term (current) use of anticoagulants; Z79.899 Other long term (current) drug therapy
CPT/HCPCS: 36415; 80053; 81003; 83735; 85025; 93005; 99285

== ENCOUNTER → 2023-08-24 | Outpatient (CLI) | payer OTHER ==
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
== END | disposition home or self-care (01) ==
LOC: RADUSWWP 09:26
PROVIDERS: ATTEND Podiatrist Foot & Ankle Surgery
DX: I73.9 Peripheral vascular disease, unspecified (principal); I10 Essential (primary) hypertension; E78.5 Hyperlipidemia, unspecified; Z87.891 Personal history of nicotine dependence
CPT/HCPCS: 93922